=== PATIENT | female | born 1940 | race Caucasian/White ===

== ENCOUNTER 2016-11-05 12:22 | Inpatient (IN) ==
[2016-11-05 12:47] LABS: Basophils # 0.1 10*3/uL (0.0-0.2); Basophils % 0.5 % (0.0-0.8); Eosinophils # 0.1 10*3/uL (0.0-0.87); Eosinophils % 0.8 % (0.00-10.9); Hematocrit 28.2 VOL% (35.7-47.0); Hemoglobin 9.2 GM/DL (12.0-16.0); Immature Granulocytes % 0.8 %; Immature Granulocytes Absolute 0.09 #; Lymphocytes # 2.9 10*3/uL (1.4-4.0); Lymphocytes % 24.7 % (21.3-54.2); Mean Corpuscular HGB Conc 32.6 GM/DL (32-36); Mean Corpuscular Hemoglobin 28 PG (27-34); Mean Corpuscular Volume 84.9 FL (87-102); Mean Platelet Volume 11.8 FL (9.6-12.0); Monocytes # 0.9 10*3/uL (0.11-0.8); Monocytes % 7.2 % (1.7-12.7); Neutrophils # 7.8 10*3/uL (1.4-7.4); Platelet Count 257 T/CUMM (130-400); Red Blood Count 3.32 MC/CUMM (3.8-5.5); Red Cell Distribution Width 18.4 % (9.3-17.3); White Blood Count 11.8 T/CUMM (4-12)
[2016-11-05 13:14] LABS: Albumin 2.9 G/DL (3.4-5.0); Bilirubin,Total 0.4 MG/DL (0.2-1.0); Calcium 8.7 MG/DL (8.5-10.1); Osmolality,Calculated 299.1 MOS/KG (273-304); Potassium 4.7 MMOL/L (3.5-5.1); Total Protein 6.6 G/DL (6.4-8.3)
[2016-11-05] MEDS ORDERED: MORPHINE 2 MG/1 ML SYRINGE ONE ×2 (13:24→13:50)
[2016-11-05] MEDS ORDERED: ONDANSETRON 4 MG/2 ML VIAL ONE (13:24)
[2016-11-05] MEDS ORDERED: ONDANSETRON 4 MG/2 ML VIAL IV STA (13:28)
--- NOTE | 2016-11-05 13:29 | Emergency Department Note ---
Charlie Aguillon Brittany, am scribing for, and in the presence of, Murlai Francois MD 13:05. Alessandro Aguillon Phillip K, MD, personally performed the services described in this documentation, ascribed by Yumiko Guerra in my presence, and it is both accurate and complete 329 . Arrival - Arrival Chief Complaint: Fall Stated Complaint: fall ED Nursing Triage Note: C/o right hip pain s/p earlier today. Obvious shortening and rotation noted. +pedal pulse. Patient moved from daughter's car to ED stretcher. Mode of Arrival: Stretcher Limitations: No Limitations Source: Patient, RN Notes Reviewed - History of Present Illness HPI Narrative: Patient is a 76 y/o white female presenting to the ED with c/o R hip pain s/p taking a fall earlier today. Patient states that she was in the bathroom when she began staggering and lost her balance, resulting in a fall onto the floor. She denies hitting her head in the process of the fall. No syncope or LOC. Patient complains of R hip pain, no chest pain, shortness of breath, abdominal pain, N/V, neck pain, or back pain. Patient does have obvious shortening and external rotation of the RLE. Last ate around 3 hours ago at breakfast. She is a patient of Dr. Henderson of Cardiology and notes that she has an appointment set up for tomorrow. Family at the bedside reports that patient has a PMHx of CHF, Atrial Fibrillation, HTN, Scleroderma, and Rectal Prolapse. Patient has no further complaints. Onset (ago): minute(s) Consistency: constant Date of Last Menstrual Period: hysterectomy Allergies/Adverse Reactions: Allergies Allergy/AdvReac Type Severity Reaction Status Date / Time nifedipine [From Procardia] Allergy Unknown RASH Verified 09/11/16 06:54 Sulfa (Sulfonamide Allergy Unknown RASH Verified 09/11/16 06:54 Antibiotics) Home Medications: Home Medications Medication Instructions Recorded Confirmed Type Amitriptyline HCl 25 mg PO BEDTIME PRN 03/19/15 10/11/16 History Aspirin [Ecotrin] 81 mg PO DAILY 03/19/15 10/11/16 History Furosemide Tab [Lasix Tab] 80 mg PO DAILY 03/19/15 10/11/16 History Insulin Detemir [Levemir FlexPen] 25 unit SUBCUT BEDTIME 03/19/15 10/11/16 History Levothyroxine Tab [Synthroid Tab] 25 mcg PO DAILY@0700 03/19/15 10/11/16 History Montelukast Tab [Singulair Tab] 10 mg PO BEDTIME 03/19/15 10/11/16 History Multivitamin [One Daily] 1 each PO DAILY 03/19/15 10/11/16 History Potassium Chloride 20 meq PO BID 03/19/15 10/11/16 History predniSONE TAB [PredniSONE] 5 mg PO BID 03/19/15 10/11/16 History Allopurinol 150 mg PO DAILY 04/01/15 10/11/16 History Dexlansoprazole [Dexilant] 60 mg PO DAILY 04/01/15 10/11/16 History Duloxetine HCl [Cymbalta] 60 mg PO DAILY 04/01/15 10/11/16 History Lipase/Protease/Amylase [Creon 12,000 unit PO TID W/MEALS 04/01/15 10/11/16 History 12,000 Units] Diphenoxylate/Atrop 2.5-0.025 1 tablet PO Q6H PRN 04/04/16 10/11/16 History [Lomotil Tab] Atorvastatin [Lipitor] 40 mg PO BEDTIME 09/10/16 10/11/16 History Calcium (Carbonate) [Caltrate 600] 1 tablet PO DAILY 09/10/16 10/11/16 History HYDROcodone/ACETAMIN 5-325 [[place] 1 tablet PO Q6H PRN 09/10/16 10/11/16 History 5-325] Magnesium 250 mg PO DAILY 09/10/16 10/11/16 History Carvedilol [Coreg] 6.25 mg PO BID #60 tablet 09/11/16 10/11/16 Rx Ferrous Sulfate [Ferrous Sulfate 325 mg PO DAILY 09/11/16 10/11/16 History Cap] Isosorbide Mononitrate [Imdur] 30 mg PO DAILY #30 tablet 09/11/16 10/11/16 Rx Losartan [Cozaar] 25 mg PO DAILY #30 tablet 09/11/16 10/11/16 Rx hydrALAZINE TAB [Apresoline Tab] 25 mg PO BID #60 tablet 09/11/16 10/11/16 Rx Clindamycin Cap [Cleocin Cap] 300 mg PO BID 10/11/16 10/11/16 History Lutein 20 mg PO DAILY 10/11/16 10/11/16 History Review of System - Review of System 12 point system: reviewed and no additional remarkable complaints except as stated - Review of System Constitutional: Absent: chills, fever Eyes: Absent: vision change Head/Ears/Nose/Throat: Absent: nasal drainage, sore throat Respiratory: Absent: respiratory distress Cardiovascular: Absent: chest pain Gastrointestinal: Absent: abdominal pain, nausea, vomiting, diarrhea, constipation, melena, hematochezia Genitourinary female: Absent: dysuria, frequency, urgency Musculoskeletal: Present: leg pain (R hip pain). Absent: arm pain, back pain, neck pain Skin: Absent: rash Neurological: Absent: headache Psychiatric: Absent: anxiety, depression Hematological/Lymphatic: Absent: easy bleeding, easy bruising Medical,Surgical,& Family Hx - Medical History Cardio: History of: Cardiac Dysrhythmia, CHF, Hypertension, Cardiovascular Problems (DR HENDERSON. LAST VISIT 04/2015.) Psychological: History of: Anxiety Disorders Neurology: History of: TIA (2010) No history of: Seizures HEENT: History of: Eye Problem (macular degeneration), HEENT Problems (Cataracts ) Endocrine: History of: Diabetes Mellitus (IDDM), Diabetes Mellitus (NIDDM), Dyslipidemia, Thyroid Disorder (hypothyroidism) Rheumatology: History of;: Gout Respiratory: History of: COPD, Pneumonia, Respiratory Problems (DR CASTAÑEDA) Renal: History of: Renal Failure, Renal Problems (chronic renal insufficiency to stage II) Gastrointestinal: History of: GERD, Hemorrhoids, Pancreatitis, GI Problems ( PAST HX OF DIARRHEA, CONSTIPATION) Musculoskeletal: History of: Herniated Disk, Musculoskeletal Problems Hematology: History of: Anemia Other: History of: MRSA (LEFT ARMPIT), Miscellaneous Medical Problems ( rectocele repair) - Surgical History Cardiac Surgeries: Sugical HX of: Cardiac Catheterization Thoracic Surgeries: Patient denies;: Organ Transplant Abdominal Surgeries: Surgical HX of: Colonoscopy, EGD Reproductive Surgeries: Surgical HX of;: Breast Surgery (tumor removed from left breast), Hysterectomy - Family History Family History: Reports;: Family Diabetes, Family Heart Disease, Family Hypertension, Family Stroke (father) - Social History Smoking Status: Never smoker Frequency of Alcohol Use: None Type of Drug Use: None Exam Vital Signs: Vital Signs Temperature 99.1 F 11/05/16 12:27 Pulse Rate 105 H 11/05/16 12:27 Respiratory Rate 23 11/05/16 12:27 Blood Pressure 117/66 11/05/16 12:27 O2 Sat by Pulse Oximetry 95 11/05/16 12:27 - General General appearance: alert, in no apparent distress - Head Head exam: Present: atraumatic, normocephalic, normal inspection - Eye Eye exam: Present: normal appearance, PERRL, EOMI - ENT ENT exam: Present: normal exam, normal oropharynx - Neck Neck exam: Present: normal inspection, full ROM, trachea midline - Chest Chest inspection: Present: normal inspection, symmetric chest wall rise - Respiratory Respiratory exam: Present: normal lung sounds bilaterally. Absent: respiratory distress - Cardiovascular Cardiovascular exam: Present: normal rhythm, tachycardia, normal heart sounds. Absent: regular rate, murmur, rubs, gallop - Abdominal Exam Abdominal exam: Present: soft, normal bowel sounds. Absent: distention, tenderness - Extremities Exam Extremities exam: Present: tenderness (TTP over R hip). Absent: normal inspection (shortening and external rotation of the RLE), full ROM (limited ROM to RLE secondary to pain) - Back Exam Back exam: Present: normal inspection - Neurological Exam Neurological exam: Present: alert, oriented X3, CN II-XII intact. Absent: motor sensory deficit - Psychiatric Psychiatric exam: Present: normal affect, normal mood - Skin Skin exam: Present: warm, dry Course Course Narrative: Patient discussed with the hospitalist and Dr. Lance Rodrigez's nurse. Results - Labs CBC & BMP: 11/05/16 12:35 11/05/16 12:35 Lab Results: I have reviewed the patients labs Labs: Laboratory Tests 11/05/16 12:35 WBC 11.8 RBC 3.32 L Hgb 9.2 L Hct 28.2 L MCV 84.9 L RDW 18.4 H Plt Count 257 Neut # (Auto) 7.8 H [place] # (Auto) 0.9 H Disposition Clinical Impression: Subcapital fracture of neck of right femur, Dehydration, Anemia, Fall, History of scleroderma, Chronic renal failure Case discussed with: patient, patient's family Disposition: Still a Patient Condition: Guarded Additional Instructions: Admit to the hospitalist and consult Dr. Lance Rodrigez
[2016-11-05] MEDS ORDERED: MORPHINE 2 MG/1 ML SYRINGE IV STA ×2 (13:30→13:52)
[2016-11-05] MEDS ORDERED: SODIUM CHLORIDE 0.9% 500 ML IV STA (13:30)
--- NOTE | 2016-11-05 13:30 | XRay Report ---
History: Fall Date: 11/05/2016 Study: Right hip 2 views to include AP pelvis Comparison exam: CT abdomen and pelvis October 11, 2016 There is an acute subcapital fracture of the right hip with mild superior-lateral displacement of the distal fracture fragment and mild varus deformity at the fracture site. There is mild osteophyte formation and joint space narrowing of the right hip. There is suspected osteopenia. Impression: Acute right hip fracture as discussed above PROCEDURE INTERPRETED AT [facility] DEPARTMENT OF RADIOLOGY Final Report Signed by: Dr. Maggi Bradshaw
[2016-11-05 14:32] LABS: Apearance,Urine Slightly Hazy (Clear); Bilirubin,Urine Negative (Negative); Blood, Urine Negative (Negative); Glucose,Urine (UA) 150 mg/dL (Negative); Ketones,Urine Negative (Negative); Nitrite,Urine Negative (Negative); Protein,Urine Negative; RBC,Urine 12 /HPF (0-4); Squamous Epithelial Cell,Urine Occasional /HPF (0-10); Urine Color Yellow (Yellow); Urine Specific Gravity 1.013 (1.001-1.035); Urine Urobilinogen < 2.0 EU/DL (0.2-1.0); WBC,Urine 2 /HPF (0-6)
--- NOTE | 2016-11-05 14:42 | XRay Report ---
Portable chest Exam date: 11/05/2016 12:48 PM Indication: Shortness of breath, cough Comparison: April 05, 2016 Findings: Cardiomediastinal contours are stable with underlying cardiomegaly. Chronic interstitial changes. No superimposed consolidative or congestive process. No acute osseous abnormalities. Visualized upper abdomen demonstrates no acute pathology. Impression: No acute cardiopulmonary findings PROCEDURE INTERPRETED AT [facility] DEPARTMENT OF RADIOLOGY Final Report Signed by: Priscila Tompkins MD
[2016-11-05] MEDS ORDERED: HYDROmorphone 2 MG/1 ML VIAL IV STA (15:32)
[2016-11-05] MEDS ORDERED: HYDROmorphone 2 MG/1 ML VIAL ONE (15:34)
--- NOTE | 2016-11-05 15:41 | Hospitalist History & Physical ---
Assessment and Plan - Time spent with patient Time spent with patient: Greater than 30 minutes (1) Subcapital fracture of right femur Status: Acute Assessment and plan: Acute subcapital fracture of right femur primary x-ray of the right hip. Case has been discussed with Dr. Lance Rodrigez per ER physician. Vitals are currently stable. Patient does not appear to be in cardiac decompensation. We will continue IV pain management with Dilaudid as well as gentle IV fluid hydration. Consult Dr. Lance Rodrigez Current Visit: Yes (2) Chronic renal failure Status: Acute Assessment and plan: Creatinine 2.10. Gentle IV hydration. IV NS 50 ml/hr Current Visit: Yes (3) Fall Status: Acute Current Visit: Yes (4) Diabetes mellitus type II, controlled Status: Chronic Assessment and plan: Serum glucose 327. Accu-cheks ACHS. SS insulin per protocol. Current Visit: No Qualifiers: Diabetes mellitus complication status: without complication History of Present Illness Chief complaint: Fall, R hip fracture History of present illness: Ms. Jones is a 76 year old white female with past medical history significant for hypertension, IDDM, CHF, TIAs, rectal prolapse who presents to the ED today with complaints of right hip pain after sustaining a fall this morning. Patient reports that after dressing in the restroom she staggered and fell back on her posterior right hip. She denies having hit her head or losing consciousness. Patient states that when she fell, she simply could not get up and required assistance from her [id number]. EMS was called and the patient was brought to the hospital emergency room for further evaluation. On admission, the patient was found to have an acute subcapital fracture and superiolaterally displaced distal fracture fragment of the right hip. There is also some mild varus deformity at the fracture site. Patient denies headache, blurry vision, chest pain, abdominal pain. Pulses are palpable in all 4 extremities. Patient does voice right hip pain which she ranks 10 out of 10. Lab work is significant for WBC 11.8, hemoglobin 9.2, hematocrit 28.2, sodium 135, BUN 60, creatinine 2.10, serum glucose 327. Urinalysis is negative for infection. This case is been discussed with both Dr. Francois, ER physician, and Dr. Jones, admitting physician, and the patient will be admitted for further evaluation and treatment. ER physician has discussed fracture repair with Dr. Lucas and he will be consulted on this case. Patient is a full code and makes her own medical decisions. Home medications will be reviewed and reconciled once confirmed. Of note, the patient did have a left heart catheterization for surgical clearance per Dr. Henderson 1 month ago. She does pose moderate surgical risk given her heart history and runs a risk of decompensating post surgery. Vital signs are currently stable. Will admit her and initiate IV hydration and pain management. Home Medications Medication Instructions Recorded Confirmed Type Amitriptyline HCl 25 mg PO BEDTIME PRN 03/19/15 11/05/16 History Aspirin [Ecotrin] 81 mg PO DAILY 03/19/15 11/05/16 History Furosemide Tab [Lasix Tab] 80 mg PO DAILY 03/19/15 11/05/16 History Insulin Detemir [Levemir FlexPen] 25 unit SUBCUT BEDTIME 03/19/15 11/05/16 History Levothyroxine Tab [Synthroid Tab] 25 mcg PO DAILY@0700 03/19/15 11/05/16 History Montelukast Tab [Singulair Tab] 10 mg PO BEDTIME 03/19/15 11/05/16 History Multivitamin [One Daily] 1 each PO DAILY 03/19/15 11/05/16 History Potassium Chloride 20 meq PO BID 03/19/15 11/05/16 History predniSONE TAB [PredniSONE] 5 mg PO BID 03/19/15 11/05/16 History Allopurinol 150 mg PO DAILY 04/01/15 11/05/16 History Dexlansoprazole [Dexilant] 60 mg PO DAILY 04/01/15 11/05/16 History Duloxetine HCl [Cymbalta] 60 mg PO DAILY 04/01/15 11/05/16 History Lipase/Protease/Amylase [Creon 12,000 unit PO TID W/MEALS 04/01/15 11/05/16 History 12,000 Units] Diphenoxylate/Atrop 2.5-0.025 1 tablet PO Q6H PRN 04/04/16 11/05/16 History [Lomotil Tab] Atorvastatin [Lipitor] 40 mg PO BEDTIME 09/10/16 11/05/16 History Calcium (Carbonate) [Caltrate 600] 1 tablet PO DAILY 09/10/16 11/05/16 History Magnesium 250 mg PO DAILY 09/10/16 11/05/16 History Carvedilol [Coreg] 6.25 mg PO BID #60 tablet 09/11/16 11/05/16 Rx Ferrous Sulfate [Ferrous Sulfate 325 mg PO DAILY 09/11/16 11/05/16 History Cap] Isosorbide Mononitrate [Imdur] 30 mg PO DAILY #30 tablet 09/11/16 11/05/16 Rx Losartan [Cozaar] 25 mg PO DAILY #30 tablet 09/11/16 11/05/16 Rx hydrALAZINE TAB [Apresoline Tab] 25 mg PO BID #60 tablet 09/11/16 11/05/16 Rx Lutein 20 mg PO DAILY 10/11/16 11/05/16 History Polyethylene Glycol Powder 17 gm PO DAILY 11/05/16 11/05/16 History [Miralax] Allergies Allergy/AdvReac Type Severity Reaction Status Date / Time nifedipine [From Procardia] Allergy Unknown RASH Verified 09/11/16 06:54 Sulfa (Sulfonamide Allergy Unknown RASH Verified 09/11/16 06:54 Antibiotics) Medical,Surgical,& Family Hx - Medical History Cardio: History of: Cardiac Dysrhythmia, CHF, Hypertension, Cardiovascular Problems (DR HENDERSON. LAST VISIT 04/2015.) Psychological: History of: Anxiety Disorders Neurology: History of: TIA (2010) No history of: Seizures HEENT: History of: Eye Problem (macular degeneration), HEENT Problems (Cataracts ) Endocrine: History of: Diabetes Mellitus (IDDM), Diabetes Mellitus (NIDDM), Dyslipidemia, Thyroid Disorder (hypothyroidism) Rheumatology: History of;: Gout Respiratory: History of: COPD, Pneumonia, Respiratory Problems (DR CASTAÑEDA) Renal: History of: Renal Failure, Renal Problems (chronic renal insufficiency to stage II) Gastrointestinal: History of: GERD, Hemorrhoids, Pancreatitis, GI Problems ( PAST HX OF DIARRHEA, CONSTIPATION) Musculoskeletal: History of: Herniated Disk, Musculoskeletal Problems Hematology: History of: Anemia Other: History of: MRSA (LEFT ARMPIT), Miscellaneous Medical Problems ( rectocele repair) - Surgical History Cardiac Surgeries: Sugical HX of: Cardiac Catheterization Thoracic Surgeries: Patient denies;: Organ Transplant Abdominal Surgeries: Surgical HX of: Colonoscopy, EGD Reproductive Surgeries: Surgical HX of;: Breast Surgery (tumor removed from left breast), Hysterectomy - Family History Family History: Reports;: Family Diabetes, Family Heart Disease, Family Hypertension, Family Stroke (father) - Social History Smoking Status: Never smoker Frequency of Alcohol Use: None Type of Drug Use: None Marital Status: Lives With:: Spouse Functional capacity: uses cane/walker 12 point system: reviewed and no additional remarkable complaints except as stated Exam - Constitutional Vitals: Period Temp Pulse Resp BP Sys/Barry Pulse Ox Last 24 Hr 99.1 F-99.1 F 105-105 23-23 117-117/66-66 95 Exam: General appearance: normal weight, moderate distress - Head Head exam: Present: normocephalic, atraumatic - Eye Eye exam: Present: EOMI. Absent: conjunctival injection, nystagmus Pupils: Present: JUN, normal accommodation - ENT ENT exam: Present: normal exam, normal external ear exam - Neck Neck exam: Present: normal inspection. Absent: lymphadenopathy, tenderness, thyromegaly - Respiratory Respiratory exam: Present: clear to auscultation bilaterally. Absent: rales, rhonchi, wheezes - Cardiovascular Cardiovascular exam: Present: Irregularly irregular rhythm. Absent: carotid bruit, gallop, rubs - GI/Abdominal GI/Abdominal exam: Present: normal bowel sounds. Absent: ascites, distended, mass - Extremities Exam Extremities exam: Present: Noticeably shortened RLE, external rotation - Back Exam Back exam: Absent: CVA tenderness (L), CVA tenderness (R) - Neurological Exam Neurological exam: Present: alert, oriented X3, CN II-XII intact, reflexes normal - Psychiatric Psychiatric exam: Present: normal affect, normal mood - Skin Skin exam: Present: normal color, warm, dry Results - Labs CBC & BMP: 11/05/16 12:35 11/05/16 12:35 Lab Results: I have reviewed the past 24 hour labs - Diagnostic Findings Procedure: Chest x-ray: image reviewed by me, report reviewed by me, X-ray: image reviewed by me, report reviewed by me (Right hip: Subcapital fracture)
[2016-11-05] MEDS ORDERED: GLUCAGON 1 MG VIAL IM PRN (15:51)
[2016-11-05] MEDS ORDERED: ONDANSETRON 4 MG/2 ML VIAL IV PRN (15:51)
[2016-11-05] MEDS ORDERED: DEXTROSE 50% 25 GM/50 ML SYRINGE IV PRN (15:51)
[2016-11-05] MEDS: PANTOPRAZOLE 40 MG TABLET PO SCH (16:36)
[2016-11-05] MEDS: SODIUM CHLORIDE 0.9% 1,000 ML IV SCH (16:37)
[2016-11-05] MEDS: INSULIN LISPRO 100 UNIT/ML SUBCUT SCH ×2 (16:47→21:30)
--- NOTE | 2016-11-05 18:13 | Orthopedic Consult Note ---
History of Present Illness Chief complaint: Femoral neck fracture right hip History of present illness: Ms. Jones is a 76 year old female See dictated report Home Medications Medication Instructions Recorded Confirmed Type Amitriptyline HCl 25 mg PO BEDTIME PRN 03/19/15 11/05/16 History Aspirin [Ecotrin] 81 mg PO DAILY 03/19/15 11/05/16 History Furosemide Tab [Lasix Tab] 80 mg PO DAILY 03/19/15 11/05/16 History Insulin Detemir [Levemir FlexPen] 25 unit SUBCUT BEDTIME 03/19/15 11/05/16 History Levothyroxine Tab [Synthroid Tab] 25 mcg PO DAILY@0700 03/19/15 11/05/16 History Montelukast Tab [Singulair Tab] 10 mg PO BEDTIME 03/19/15 11/05/16 History Multivitamin [One Daily] 1 each PO DAILY 03/19/15 11/05/16 History Potassium Chloride 20 meq PO BID 03/19/15 11/05/16 History predniSONE TAB [PredniSONE] 5 mg PO BID 03/19/15 11/05/16 History Allopurinol 150 mg PO DAILY 04/01/15 11/05/16 History Dexlansoprazole [Dexilant] 60 mg PO DAILY 04/01/15 11/05/16 History Duloxetine HCl [Cymbalta] 60 mg PO DAILY 04/01/15 11/05/16 History Lipase/Protease/Amylase [Creon 12,000 unit PO TID W/MEALS 04/01/15 11/05/16 History 12,000 Units] Diphenoxylate/Atrop 2.5-0.025 1 tablet PO Q6H PRN 04/04/16 11/05/16 History [Lomotil Tab] Atorvastatin [Lipitor] 40 mg PO BEDTIME 09/10/16 11/05/16 History Calcium (Carbonate) [Caltrate 600] 1 tablet PO DAILY 09/10/16 11/05/16 History Magnesium 250 mg PO DAILY 09/10/16 11/05/16 History Carvedilol [Coreg] 6.25 mg PO BID #60 tablet 09/11/16 11/05/16 Rx Ferrous Sulfate [Ferrous Sulfate 325 mg PO DAILY 09/11/16 11/05/16 History Cap] Isosorbide Mononitrate [Imdur] 30 mg PO DAILY #30 tablet 09/11/16 11/05/16 Rx Losartan [Cozaar] 25 mg PO DAILY #30 tablet 09/11/16 11/05/16 Rx hydrALAZINE TAB [Apresoline Tab] 25 mg PO BID #60 tablet 09/11/16 11/05/16 Rx Lutein 20 mg PO DAILY 10/11/16 11/05/16 History Polyethylene Glycol Powder 17 gm PO DAILY 11/05/16 11/05/16 History [Miralax] Allergies Allergy/AdvReac Type Severity Reaction Status Date / Time nifedipine [From Procardia] Allergy Unknown RASH Verified 09/11/16 06:54 Sulfa (Sulfonamide Allergy Unknown RASH Verified 09/11/16 06:54 Antibiotics) Medical,Surgical,& Family Hx - Medical History Cardio: History of: Cardiac Dysrhythmia, CHF, Hypertension, Cardiovascular Problems (DR HENEDRSON. LAST VISIT 04/2015.) Psychological: History of: Anxiety Disorders Neurology: History of: TIA (2010) No history of: Seizures HEENT: History of: Eye Problem (macular degeneration), HEENT Problems (Cataracts ) Endocrine: History of: Diabetes Mellitus (IDDM), Diabetes Mellitus (NIDDM), Dyslipidemia, Thyroid Disorder (hypothyroidism) Rheumatology: History of;: Gout Respiratory: History of: COPD, Pneumonia, Respiratory Problems (DR CASTAÑEDA) Renal: History of: Renal Failure, Renal Problems (chronic renal insufficiency to stage II) Gastrointestinal: History of: GERD, Hemorrhoids, Pancreatitis, GI Problems ( PAST HX OF DIARRHEA, CONSTIPATION) Musculoskeletal: History of: Herniated Disk, Musculoskeletal Problems (right hip fracture) Hematology: History of: Anemia Other: History of: MRSA (LEFT ARMPIT), Miscellaneous Medical Problems ( rectocele repair) - Surgical History Cardiac Surgeries: Sugical HX of: Cardiac Catheterization Thoracic Surgeries: Patient denies;: Organ Transplant Abdominal Surgeries: Surgical HX of: Colonoscopy, EGD Reproductive Surgeries: Surgical HX of;: Breast Surgery (tumor removed from left breast), Hysterectomy - Family History Family History: Reports;: Family Diabetes, Family Heart Disease, Family Hypertension, Family Stroke (father) - Social History Smoking Status: Never smoker Frequency of Alcohol Use: None Type of Drug Use: None Exam - Constitutional Vitals: Period Temp Pulse Resp BP Sys/Barry Pulse Ox Last 24 Hr 98.7 F-99.1 F 96-105 14-23 117-154/53-66 95-100 Results - Labs CBC & BMP: 11/05/16 12:35 11/05/16 12:35
[2016-11-05] MEDS: HYDROmorphone 2 MG/1 ML VIAL IV PRN ×3 (18:53→23:14)
[2016-11-05] MEDS: CARVEDILOL 6.25 MG TABLET PO SCH (21:30)
[2016-11-05] MEDS: hydrALAZINE 25 MG TABLET PO SCH (21:30)
[2016-11-05] MEDS: predniSONE 5 MG TABLET PO SCH (21:30)
[2016-11-05] MEDS: AMITRIPTYLINE 25 MG TABLET PO PRN (23:14)
[2016-11-06 05:26] LABS: Basophils # 0.1 10*3/uL (0.0-0.2); Basophils % 0.6 % (0.0-0.8); Eosinophils % 0.4 % (0.00-10.9); Hematocrit 27.3 VOL% (35.7-47.0); Hemoglobin 8.5 GM/DL (12.0-16.0); Immature Granulocytes % 0.9 %; Immature Granulocytes Absolute 0.08 #; Lymphocytes # 2.5 10*3/uL (1.4-4.0); Lymphocytes % 26.6 % (21.3-54.2); Mean Corpuscular HGB Conc 31.1 GM/DL (32-36); Mean Corpuscular Hemoglobin 27 PG (27-34); Mean Corpuscular Volume 86.9 FL (87-102); Mean Platelet Volume 11.9 FL (9.6-12.0); Monocytes # 0.5 10*3/uL (0.11-0.8); Monocytes % 5.7 % (1.7-12.7); Neutrophils # 6.1 10*3/uL (1.4-7.4); Neutrophils % 65.8 % (38.7-73.9); Platelet Count 238 T/CUMM (130-400); Red Blood Count 3.14 MC/CUMM (3.8-5.5); Red Cell Distribution Width 18.4 % (9.3-17.3); White Blood Count 9.3 T/CUMM (4-12)
[2016-11-06 05:51] LABS: Calcium 8.7 MG/DL (8.5-10.1); Osmolality,Calculated 291.7 MOS/KG (273-304)
[2016-11-06] MEDS: LEVOTHYROXINE 25 MCG TABLET PO SCH (06:41)
[2016-11-06] MEDS: INSULIN LISPRO 100 UNIT/ML SUBCUT SCH ×2 (07:45→12:21)
[2016-11-06] MEDS ORDERED: MAGNESIUM HYDROXIDE SUSP 30 ML UDCUP PO PRN (07:51)
[2016-11-06] MEDS ORDERED: LACTULOSE 20 GM/30 ML UDCUP PO PRN (07:51)
[2016-11-06] MEDS ORDERED: diphenhydrAMINE CAP 25 MG CAPSULE PO PRN (07:51)
[2016-11-06] MEDS ORDERED: BISACODYL 10 MG SUPP RECTAL PRN (07:51)
[2016-11-06] MEDS ORDERED: TEMAZEPAM 7.5 MG CAPSULE PO PRN (07:51)
[2016-11-06] MEDS ORDERED: PROMETHAZINE 25 MG/1 ML VIAL IM PRN (07:51)
[2016-11-06] MEDS ORDERED: DIPHENOXYLATE/ATROPINE 2.5-0.025 MG TABLET PO PRN (07:54)
[2016-11-06] MEDS ORDERED: GLUCAGON 1 MG VIAL IM PRN ×2 (07:55→15:38)
[2016-11-06] MEDS ORDERED: DEXTROSE 50% 25 GM/50 ML SYRINGE IV PRN ×2 (07:55→15:38)
--- NOTE | 2016-11-06 07:59 | Consultation ---
DATE OF CONSULT: 11/05/2016 HISTORY: A 76-year-old white female fell over today sustaining injury to her right hip. She reporte vik is an ambulatory and usually not requiring the need for a walker or cane. Upon falling, she was unable to bear weight, brought to [facility], where diagnosed with a displaced femoral n delvin fracture. She has numerous medical problems including a recent abdominal surgery and has been ad mitted to the hospitalist service for medical evaluation and clearance. I have been asked to evaluat e regarding her right hip fracture. PHYSICAL EXAMINATION GENERAL: A thin white female. She has no complaints of pain other than her right hip. EXTREMITIES: There is no pain or crepitation with palpitation range of motion of either upper extrem ity or about the left lower. On the right side, there is decreased range of motion about the right h ip secondary to pain. No obvious pain or crepitation of the distal femur, knee, tib-fib or ankle. S he will actively flex and extend the foot and ankle. Describing the sensibility is intact. Radiographs confirming a displaced femoral neck fracture of right hip. IMPRESSION: Femoral neck fracture, right hip. PLAN: I have discussed with she and her family present her diagnosis and treatment recommendations in cluding the need for endoprosthesis. I have discussed with her the nature of the procedure, such as risks, benefits, and alternatives. All questions were answered. We will plan on endoprosthesis in t he a.m.
[2016-11-06] MEDS: hydrALAZINE 25 MG TABLET PO SCH (08:57)
[2016-11-06] MEDS: DULoxetine 30 MG CAPSULE PO SCH (08:57)
[2016-11-06] MEDS: CARVEDILOL 6.25 MG TABLET PO SCH (08:57)
[2016-11-06] MEDS: DOCUSATE SODIUM 100 MG CAPSULE PO SCH ×2 (08:57→20:47)
[2016-11-06] MEDS: MULTIVITAMIN (CENTRUM) TABLET PO SCH (08:57)
[2016-11-06] MEDS: ASPIRIN EC 81 MG TABLET PO SCH (08:57)
[2016-11-06] MEDS: CALCIUM (CARBONATE) 600 MG TABLET PO SCH (08:57)
[2016-11-06] MEDS: predniSONE 5 MG TABLET PO SCH ×2 (08:58→20:47)
[2016-11-06] MEDS: MAGNESIUM GLUCONATE 500 MG TABLET PO SCH (08:58)
[2016-11-06] MEDS: FERROUS SULFATE 325 MG TABLET PO SCH (08:58)
[2016-11-06] MEDS: PANTOPRAZOLE 40 MG TABLET PO SCH (08:58)
[2016-11-06] MEDS: POLYETHYLENE GLYCOL POWDER 17 GM PACK PO SCH (08:58)
[2016-11-06] MEDS: ALLOPURINOL 300 MG TABLET PO SCH (08:59)
[2016-11-06] MEDS ORDERED: LOSARTAN 25 MG TABLET PO SCH (09:00)
[2016-11-06] MEDS ORDERED: NON-FORMULARY MEDICATION (Dexlansoprazole [Dexilant] 60 MG) PO SCH (09:00)
[2016-11-06] MEDS ORDERED: POTASSIUM CHLORIDE 20 MEQ TABLET PO SCH (09:00)
[2016-11-06] MEDS ORDERED: FUROSEMIDE 80 MG TABLET PO SCH (09:00)
[2016-11-06] MEDS ORDERED: ISOSORBIDE MONONITRATE 30 MG TABLET PO SCH (09:00)
[2016-11-06] MEDS: Lutein [Lutein] 20 MG PO SCH (09:30)
[2016-11-06] MEDS: AMYLASE PO SCH ×3 (09:30→17:57)
[2016-11-06] MEDS: LIPASE PO SCH ×3 (09:30→17:57)
[2016-11-06] MEDS: PROTEASE PO SCH ×3 (09:30→17:57)
--- NOTE | 2016-11-06 09:35 | Anesthesia Post-Op ---
Anesthesia Post OP - Post Ansesthetic Evaluation Patient seen in post op: Yes Resp: within normal limits CV: within normal limits Mental: within normal limits Temp: within normal limits [id number]: within normal limits Nausea and Vomiting: within normal limits Pain: within normal limits
--- NOTE | 2016-11-06 09:35 | XRay Report ---
Exam: XR hip 1V RT Date: 11/06/2016 7:53 AM Comparison: 11/05/2016 Indication: Hip replacement Technique:[AP right hip] Findings: Interval satisfactory right total hip replacement with post operative findings. Arterial calcifications are noted. Impression: Satisfactory interval right total hip replacement. PROCEDURE INTERPRETED AT [facility] DEPARTMENT OF RADIOLOGY Final Report Signed by: Dr. Leti Lopes
[2016-11-06] MEDS ORDERED: PROPOFOL 200 MG/20 ML VIAL IV ONE (09:40)
[2016-11-06] MEDS ORDERED: KETOROLAC 30 MG/1 ML VIAL ONE (09:41)
[2016-11-06] MEDS ORDERED: fentaNYL 100 MCG/2 ML VIAL ONE (09:41)
[2016-11-06] MEDS ORDERED: ONDANSETRON 4 MG/2 ML VIAL ONE (09:41)
[2016-11-06] MEDS ORDERED: MIDAZOLAM 2 MG/2 ML VIAL ONE (09:41)
[2016-11-06] MEDS ORDERED: KETAMINE 500 MG/10 ML VIAL ONE (09:41)
[2016-11-06] MEDS ORDERED: ACETAMINOPHEN 1,000 MG/100 ML VIAL IV ONE (09:42)
[2016-11-06] MEDS ORDERED: HYDROmorphone 2 MG/1 ML VIAL IV PRN (09:48)
--- NOTE | 2016-11-06 12:08 | XRay Report ---
Exam: XR hip 1V RT Date: 11/06/2016 12:00 AM Comparison: 11/06/2016 Indication: Hip replacement Technique:[Portable AP pelvis] Findings: Recent satisfactory right total hip replacement with postoperative findings. Vascular calcifications are noted. Impression: Recent satisfactory right total hip replacement. PROCEDURE INTERPRETED AT [facility] DEPARTMENT OF RADIOLOGY Final Report Signed by: Dr. Leti Lopes
[2016-11-06] MEDS: INSULIN REGULAR 100 UNIT/ML SUBCUT SCH ×3 (12:25→20:47)
--- NOTE | 2016-11-06 14:14 | Hospitalist Progress Note ---
Assessment and Plan (1) Subcapital fracture of right femur Status: Acute Assessment and plan: s/p right bipolar orif Current Visit: Yes (2) Chronic diastolic heart failure Status: Acute Assessment and plan: hold lasix and hydration, chronic diastolic heart failure Current Visit: Yes (3) Acute on chronic renal failure Status: Acute Assessment and plan: Improve with gentle hydration creatinine has come down from 2.1-1.4. Current Visit: Yes (4) Dehydration Status: Acute Assessment and plan: Resolved with hydration. With have lock IV fluids. Will hold Lasix. Current Visit: Yes (5) Anemia Status: Acute Assessment and plan: Patient is chronically anemic but her hemoglobin is gone from 9.2-8.5. We will continue to monitor after surgery will most likely need blood. We will write a as needed blood transfusion order. Continuing protonix Current Visit: Yes (6) Fall Status: Acute Assessment and plan: may be orthostatic. Current Visit: Yes (7) Hypertension Status: Chronic Assessment and plan: cont coreg, hold losartan, isosorbide and hydralazine Current Visit: No Qualifiers: Hypertension type: essential hypertension Qualified Code(s): I10 - Essential (primary) hypertension (8) IDDM (insulin dependent diabetes mellitus) Status: Acute Assessment and plan: Insulin sliding scale, cont lantus Current Visit: Yes Hospitalist: Subjective Interval history: Patient had a bipolar right hip surgery today by Dr. Lance Haines. Patient request either [facility] bed or [facility] in [place]. Patient tolerated the clear liquids well. We will advance her diet. Blood sugars are elevated. Blood pressure is good. Her medicines are reviewed and reconciled. Patient's hemoglobin A1c is 9.5. Patient had an echocardiogram that was completed in March 2016 which showed an EF of 55% and grade 2 diastolic dysfunction. Her PAP is 50 Exam - Constitutional Vitals: Period Temp Pulse Resp BP Sys/Barry Pulse Ox Last 24 Hr 98.0 F-99.4 F 79-111 12-22 105-161/50-87 97-100 Exam: Heart Rate-[RRR] Lungs-[CTAB] GI-[diminished bs distended but nontender, healing surgical scar Ext-postsurgical wedge Neuro cannot evaluate motor due to recent surgery, [alert and oriented times 2] psych [normal mood and affect] General [no acute distress] Results - Labs CBC & BMP: 11/06/16 04:39 11/06/16 04:39 Lab Results: I have reviewed the past 24 hour labs
--- NOTE | 2016-11-06 14:23 | Operative Note ---
DATE: 11/06/2016 PREOPERATIVE DIAGNOSIS: FEMORAL NECK FRACTURE, RIGHT HIP. POSTOPERATIVE DIAGNOSIS: SAME. OPERATIVE PROCEDURE: BIPOLAR, RIGHT HIP. SURGEON: Lux Lucas Jr., MD ANESTHESIA: Spinal. INDICATIONS: A 76-year-old white female, fell yesterday sustaining a displaced femoral neck fracture of the right hip. I discussed with her and her family preoperatively, the diagnosis and treatment r ecommendations including the need for endoprosthesis. OPERATIVE PROCEDURE: The patient was taken to the operating room and under spinal anesthetic, positi oned in the left lateral decubitus position. The right hip and lower extremity were prepped and drap ed in a usual sterile manner. She received Ancef preoperatively. A curvilinear incision was made ov er the posterolateral aspect of the right hip. Sharp dissection was carried down through skin and farah bcutaneous tissue. The IT band was split and gluteus in line with its fibers. The hip was internall y rotated, and the short rotators and capsule were reflected off the back of the proximal femur and t he capsule was tagged for later repair. The femoral neck cut was fashioned with a saw and the head r emoved and sized to a 45. The canal was very small. She accepted size 3 medium to main stem, trial reduction selecting 1.5 head. The femur was prepared for cementation. Again, the canal was too smal l to accept the small cement plug. The cement was inserted and the size 3 femoral stem appeared. A small fracture was noted at the medial calcar, substratum was initially with minimally only about a m illimeter. The femur was held in position as it hardened,1.5 and bipolar head was then secured on th e trunnion and the hip relocated. Intraoperative films confirm a satisfactory position of the prosth esis and reduction. The wound was then irrigated and closed in a standard fashion, using # 1 Vicryl for the posterior capsule IT band layers, 2-0 Vicryl for the subcutaneous layer, and sujit for skin . Sterile dressing was applied. She was rolled supine and abduction pillow placed and taken to the recovery room in stable condition. ESTIMATED BLOOD LOSS: 50 cc. COUNTS: Correct. DRAINS: Times 2.
[2016-11-06] MEDS ORDERED: SODIUM CHLORIDE 0.9% 250 ML IV PRN (14:24)
[2016-11-06] MEDS: ACETAMINOPHEN 325 MG TABLET PO PRN (14:56)
[2016-11-06] MEDS: MONTELUKAST 10 MG TABLET PO SCH (20:47)
[2016-11-06] MEDS: AMITRIPTYLINE 25 MG TABLET PO PRN (20:47)
[2016-11-06] MEDS: CARVEDILOL 3.125 MG TABLET PO SCH (20:47)
[2016-11-06] MEDS: ATORVASTATIN 40 MG TABLET PO SCH (20:47)
[2016-11-06] MEDS: FONDAPARINUX 2.5 MG/0.5 ML SYRINGE SUBCUT SCH (20:47)
[2016-11-06] MEDS ORDERED: INSULIN GLARGINE 100 UNIT/ML SUBCUT SCH (21:00)
[2016-11-07] MEDS: SODIUM CHLORIDE 0.9% 1,000 ML IV SCH (07:31)
[2016-11-07 07:39] LABS: Basophils # 0.1 10*3/uL (0.0-0.2); Basophils % 0.4 % (0.0-0.8); Eosinophils # 0.1 10*3/uL (0.0-0.87); Eosinophils % 0.5 % (0.00-10.9); Hematocrit 26.4 VOL% (35.7-47.0); Hemoglobin 8.3 GM/DL (12.0-16.0); Immature Granulocytes % 0.8 %; Immature Granulocytes Absolute 0.09 #; Lymphocytes # 3.3 10*3/uL (1.4-4.0); Lymphocytes % 29.1 % (21.3-54.2); Mean Corpuscular HGB Conc 31.4 GM/DL (32-36); Mean Corpuscular Hemoglobin 27 PG (27-34); Mean Corpuscular Volume 84.9 FL (87-102); Mean Platelet Volume 11.2 FL (9.6-12.0); Monocytes # 0.8 10*3/uL (0.11-0.8); Monocytes % 6.6 % (1.7-12.7); Neutrophils # 7.1 10*3/uL (1.4-7.4); Neutrophils % 62.6 % (38.7-73.9); Platelet Count 226 T/CUMM (130-400); Red Blood Count 3.11 MC/CUMM (3.8-5.5); Red Cell Distribution Width 18.1 % (9.3-17.3); White Blood Count 11.4 T/CUMM (4-12)
[2016-11-07 08:07] LABS: Calcium 8.6 MG/DL (8.5-10.1); Osmolality,Calculated 282.1 MOS/KG (273-304); Potassium 4.6 MMOL/L (3.5-5.1)
[2016-11-07] MEDS: LIPASE PO SCH ×3 (08:14→16:08)
[2016-11-07] MEDS: ACETAMINOPHEN 325 MG TABLET PO PRN (08:14)
[2016-11-07] MEDS: INSULIN REGULAR 100 UNIT/ML SUBCUT SCH ×4 (08:14→21:23)
[2016-11-07] MEDS: FERROUS SULFATE 325 MG TABLET PO SCH (08:14)
[2016-11-07] MEDS: AMYLASE PO SCH ×3 (08:14→16:08)
[2016-11-07] MEDS: DOCUSATE SODIUM 100 MG CAPSULE PO SCH ×2 (08:14→21:22)
[2016-11-07] MEDS: PROTEASE PO SCH ×3 (08:14→16:08)
[2016-11-07] MEDS: PANTOPRAZOLE 40 MG TABLET PO SCH (08:14)
[2016-11-07] MEDS: CARVEDILOL 3.125 MG TABLET PO SCH (08:15)
[2016-11-07] MEDS: LEVOTHYROXINE 25 MCG TABLET PO SCH (08:15)
[2016-11-07] MEDS: POLYETHYLENE GLYCOL POWDER 17 GM PACK PO SCH (08:15)
[2016-11-07] MEDS: ALLOPURINOL 300 MG TABLET PO SCH (08:15)
[2016-11-07] MEDS: ASPIRIN EC 81 MG TABLET PO SCH (08:15)
[2016-11-07] MEDS: DULoxetine 30 MG CAPSULE PO SCH (08:15)
[2016-11-07] MEDS: MULTIVITAMIN (CENTRUM) TABLET PO SCH (08:15)
[2016-11-07] MEDS: MAGNESIUM GLUCONATE 500 MG TABLET PO SCH (08:15)
[2016-11-07] MEDS: Lutein [Lutein] 20 MG PO SCH (08:16)
[2016-11-07] MEDS: CALCIUM (CARBONATE) 600 MG TABLET PO SCH (08:16)
[2016-11-07] MEDS: predniSONE 5 MG TABLET PO SCH ×2 (08:16→21:22)
--- NOTE | 2016-11-07 08:34 | Orthopedic Progress Note ---
Orthopedics - Subjective Interval history: Comfortable neurovascular intact hemoglobin went from 8.5-to 8.3 postoperatively. Drain has been removed ready to start PT discharge planning for swing bed. Exam - Constitutional Vitals: Period Temp Pulse Resp BP Sys/Barry Pulse Ox Last 24 Hr 98.0 F-99.4 F 79-110 12-20 105-187/50-85 92-100 Results - Labs CBC & BMP: 11/07/16 07:28 11/07/16 07:28
[2016-11-07] MEDS: METOPROLOL TARTRATE 50 MG TABLET PO SCH ×2 (09:54→21:22)
[2016-11-07] MEDS: HYDROmorphone 2 MG/1 ML VIAL IV PRN ×3 (10:52→21:24)
--- NOTE | 2016-11-07 12:17 | Pathology Report from [facility] ---
[facility] [place] ACCESSION # : [id number] PATIENT NAME : Urszula Jones ORDERING DR : JOSSIE LAURA JR, MD CLINICAL HX: RT femorla neck FX POST-OP DX: Same SPECIMEN INFO: RT hip bone & tissue GROSS DESCRIPTION: The specimen is received in formalin labeled with the patients name and consists of a fractured femoral head measuring 4.2 x 4.2 x 4.0 cm. The articular surface is smooth and covarrubias with no subchondral eburnation seen. The area of fracture is shaggy and hemorrhagic with no softening appreciated. Received separately in the container is a portion of femoral neck measuring 2.5 x 2.2 x 2.3 cm. Order Tracer tissue submitted in one cassette following decalcification. DIAGNOSIS FOR URSZULA JONES: RIGHT HIP, TOTAL REPLACEMENT: Fragmented bone with marked hemorrhage and reactive changes c/w fracture. COLLECTED DATE: 11/06/2016 [facility] [place] REPORT DATE: 11/07/2016 ELECTRONICALLY SIGNED BY: Miriam Clark M.D. 11/07/2016 - 10:21:57 ARIANNA
[2016-11-07] MEDS ORDERED: INFLUENZA VIRUS VACCINE 0.5 ML SYRINGE IM ONE (16:33)
--- NOTE | 2016-11-07 16:42 | Hospitalist Progress Note ---
Assessment and Plan (1) Subcapital fracture of right femur Status: Acute Assessment and plan: s/p right bipolar orif, rehab on Thursday, cont arixtra Current Visit: Yes (2) Chronic diastolic heart failure Status: Acute Assessment and plan: bnp, stable Current Visit: Yes (3) Acute on chronic renal failure Status: Acute Assessment and plan: stable Current Visit: Yes (4) Dehydration Status: Acute Assessment and plan: Resolved Current Visit: Yes (5) Anemia Status: Acute Assessment and plan: hgb hold cont to monitor Current Visit: Yes (6) Hypertension Status: Chronic Assessment and plan: change to metoprolol 50 mg po bid, restart hydralazine 25 mg po bid Current Visit: No Qualifiers: Hypertension type: essential hypertension Qualified Code(s): I10 - Essential (primary) hypertension (7) IDDM (insulin dependent diabetes mellitus) Status: Acute Assessment and plan: BS not controlled, increase lantus Current Visit: Yes Hospitalist: Subjective Interval history: Patient doing well except seems rather tachycardic today. We will change her to metoprolol. We will try to get her out of bed today. We are planning her to go to rehab on Thursday. Dr. Lucas in the room. Exam - Constitutional Vitals: Period Temp Pulse Resp BP Sys/Barry Pulse Ox Last 24 Hr 96.8 F-99.2 F 85-110 16-20 106-187/64-85 92-96 Exam: Heart Rate-[tachy] Lungs-[CTAB] GI-[+bs soft and nontender Neuro alert and oriented times 3 psych [normal mood and affect] General [no acute distress] Results - Labs CBC & BMP: 11/07/16 07:28 11/07/16 07:28 Lab Results: I have reviewed the past 24 hour labs Labs: Hemoglobin A1c 9.5
[2016-11-07] MEDS ORDERED: TUBERCULIN SKIN TEST 0.1 ML SYRINGE INTRADERM ONE (16:48)
--- NOTE | 2016-11-07 16:51 | Case Mgmt Physician Query Form ---
TB Signs and Symptoms Screening ([place]) INSTRUCTIONS: To be completed annually on residents/staff with a significant Tuberculin Skin Test (TST) upon admission/hire or a prior significant TST. To be completed on all staff at hire. Please respond to each listed symptom with an (X) in either the "YES" or "NO" box. Do you currently have any of the following symptoms: YES NO ( ) ( x) A cough If yes, is it: ( ) Productive ( ) Non- productive ( ) (x ) Hemoptysis (spitting up blood) ( ) (x ) Chest pains ( ) (x ) Weight Loss ( ) (x ) Fever ( ) (x ) Night Sweats ( x) ( ) Weakness ( ) ( x) Loss of Appetite ( ) ( x) Difficulty Breathing If you answered YES" to any of the above questions, how long have symptoms been present? Comments: If you have any questions, please contact me. Thank you, Yulissa Mon RN, Office : [phone] Email : [email or web address]
[2016-11-07] MEDS ORDERED: INSULIN GLARGINE 100 UNIT/ML SUBCUT SCH (21:00)
[2016-11-07] MEDS: AMITRIPTYLINE 25 MG TABLET PO PRN (21:22)
[2016-11-07] MEDS: MONTELUKAST 10 MG TABLET PO SCH (21:22)
[2016-11-07] MEDS: hydrALAZINE 25 MG TABLET PO SCH (21:22)
[2016-11-07] MEDS: FONDAPARINUX 2.5 MG/0.5 ML SYRINGE SUBCUT SCH (21:26)
[2016-11-07] MEDS: ATORVASTATIN 40 MG TABLET PO SCH (21:38)
[2016-11-08 02:13] LABS: Basophils % 0.3 % (0.0-0.8); Eosinophils # 0.1 10*3/uL (0.0-0.87); Eosinophils % 0.7 % (0.00-10.9); Hematocrit 29.1 VOL% (35.7-47.0); Hemoglobin 9.1 GM/DL (12.0-16.0); Immature Granulocytes % 1.1 %; Immature Granulocytes Absolute 0.11 #; Lymphocytes # 2.7 10*3/uL (1.4-4.0); Lymphocytes % 25.7 % (21.3-54.2); Mean Corpuscular HGB Conc 31.3 GM/DL (32-36); Mean Corpuscular Hemoglobin 27 PG (27-34); Mean Corpuscular Volume 85.1 FL (87-102); Mean Platelet Volume 11.5 FL (9.6-12.0); Monocytes # 0.7 10*3/uL (0.11-0.8); Monocytes % 6.8 % (1.7-12.7); Neutrophils # 6.8 10*3/uL (1.4-7.4); Neutrophils % 65.4 % (38.7-73.9); Platelet Count 226 T/CUMM (130-400); Red Blood Count 3.42 MC/CUMM (3.8-5.5); White Blood Count 10.5 T/CUMM (4-12)
[2016-11-08 02:38] LABS: Osmolality,Calculated 280.2 MOS/KG (273-304); Potassium 4.5 MMOL/L (3.5-5.1)
[2016-11-08] MEDS: LEVOTHYROXINE 25 MCG TABLET PO SCH (06:50)
--- NOTE | 2016-11-08 07:56 | Orthopedic Progress Note ---
Orthopedics - Subjective Interval history: She is alert and stable. Plans are underway to transfer her to a swing bed type unit Thursday Exam - Constitutional Vitals: Period Temp Pulse Resp BP Sys/Barry Pulse Ox Last 24 Hr 96.8 F-98.8 F 85-104 16-18 126-191/64-80 95-96 Results - Labs CBC & BMP: 11/08/16 01:54 11/08/16 01:54
[2016-11-08] MEDS: INSULIN REGULAR 100 UNIT/ML SUBCUT SCH ×4 (08:41→21:22)
[2016-11-08] MEDS: ALLOPURINOL 300 MG TABLET PO SCH (08:43)
[2016-11-08] MEDS: hydrALAZINE 25 MG TABLET PO SCH ×2 (08:44→21:21)
[2016-11-08] MEDS: DULoxetine 30 MG CAPSULE PO SCH (08:45)
[2016-11-08] MEDS: MAGNESIUM GLUCONATE 500 MG TABLET PO SCH (08:45)
[2016-11-08] MEDS: METOPROLOL TARTRATE 50 MG TABLET PO SCH (08:46)
[2016-11-08] MEDS: ASPIRIN EC 81 MG TABLET PO SCH (08:46)
[2016-11-08] MEDS: DOCUSATE SODIUM 100 MG CAPSULE PO SCH ×2 (08:46→21:21)
[2016-11-08] MEDS: PANTOPRAZOLE 40 MG TABLET PO SCH (08:47)
[2016-11-08] MEDS: POLYETHYLENE GLYCOL POWDER 17 GM PACK PO SCH (08:47)
[2016-11-08] MEDS: CALCIUM (CARBONATE) 600 MG TABLET PO SCH (08:47)
[2016-11-08] MEDS: predniSONE 5 MG TABLET PO SCH ×2 (08:47→21:21)
[2016-11-08] MEDS: MULTIVITAMIN (CENTRUM) TABLET PO SCH (08:48)
[2016-11-08] MEDS: AMYLASE PO SCH ×3 (08:48→17:11)
[2016-11-08] MEDS: PROTEASE PO SCH ×3 (08:48→17:11)
[2016-11-08] MEDS: Lutein [Lutein] 20 MG PO SCH (08:48)
[2016-11-08] MEDS: LIPASE PO SCH ×3 (08:48→17:11)
--- NOTE | 2016-11-08 13:27 | Hospitalist Progress Note ---
Assessment and Plan (1) Subcapital fracture of right femur Status: Acute Assessment and plan: s/p right bipolar orif, rehab on Thursday, cont arixtra Current Visit: Yes (2) Chronic diastolic heart failure Status: Acute Assessment and plan: bnp elevated at 908, will start diuretics and increase metoprolol to 100 mg po bid Current Visit: Yes (3) Acute on chronic renal failure Status: Acute Assessment and plan: Improve significantly, continue to monitor while on diuretics. Current Visit: Yes (4) Dehydration Status: Acute Assessment and plan: Resolved evidence of volume overload. Current Visit: Yes (5) Anemia Status: Acute Assessment and plan: hgb hold cont to monitor Current Visit: Yes (6) Hypertension Status: Chronic Assessment and plan: Not controlled will increase metoprolol to 100 mg twice daily, restart Imdur and start Norvasc. Current Visit: No Qualifiers: Hypertension type: essential hypertension Qualified Code(s): I10 - Essential (primary) hypertension (7) IDDM (insulin dependent diabetes mellitus) Status: Acute Assessment and plan: BS not controlled, increase lantus and and mealtime coverage Current Visit: Yes Hospitalist: Subjective Interval history: Blood sugars are still not well controlled. Patient did have a good bowel movement today. Patient says she is eating well and we plan for her to get her rehab if okay with Dr. Lucas on Thursday. Blood pressure any way too high. BS not controlled. Exam - Constitutional Vitals: Period Temp Pulse Resp BP Sys/Barry Pulse Ox Last 24 Hr 97.4 F-98.8 F 85-104 16-20 135-198/64-95 90-96 Exam: Heart Rate-[tachy] Lungs-[CTAB] GI-[+bs soft and nontender Neuro alert and oriented times 3 psych [normal mood and affect] General [no acute distress] Results - Labs CBC & BMP: 11/08/16 01:54 11/08/16 01:54 Lab Results: I have reviewed the past 24 hour labs Labs: BNP is 908
[2016-11-08] MEDS ORDERED: INSULIN GLARGINE 100 UNIT/ML SUBCUT SCH (13:31)
[2016-11-08] MEDS: amLODIPine 5 MG TABLET PO SCH (14:27)
[2016-11-08] MEDS: FUROSEMIDE 40 MG/4 ML VIAL IV SCH (14:27)
[2016-11-08] MEDS: INSULIN LISPRO 100 UNIT/ML SUBCUT SCH ×2 (17:08→21:22)
[2016-11-08] MEDS: FONDAPARINUX 2.5 MG/0.5 ML SYRINGE SUBCUT SCH (21:20)
[2016-11-08] MEDS: MONTELUKAST 10 MG TABLET PO SCH (21:21)
[2016-11-08] MEDS: METOPROLOL TARTRATE 100 MG TABLET PO SCH (21:21)
[2016-11-08] MEDS: AMITRIPTYLINE 25 MG TABLET PO PRN (21:21)
[2016-11-08] MEDS: ATORVASTATIN 40 MG TABLET PO SCH (21:21)
[2016-11-09 03:52] LABS: Calcium 8.9 MG/DL (8.5-10.1); Magnesium 1.7 MG/DL (1.8-2.4); Osmolality,Calculated 282.4 MOS/KG (273-304); Potassium 4.2 MMOL/L (3.5-5.1)
[2016-11-09] MEDS: LEVOTHYROXINE 25 MCG TABLET PO SCH (06:22)
[2016-11-09] MEDS: INSULIN LISPRO 100 UNIT/ML SUBCUT SCH ×4 (08:32→21:06)
[2016-11-09] MEDS: INSULIN REGULAR 100 UNIT/ML SUBCUT SCH ×4 (08:33→21:06)
[2016-11-09] MEDS: Lutein [Lutein] 20 MG PO SCH (08:34)
[2016-11-09] MEDS: LIPASE PO SCH ×3 (08:34→16:51)
[2016-11-09] MEDS: AMYLASE PO SCH ×3 (08:34→16:51)
[2016-11-09] MEDS: PROTEASE PO SCH ×3 (08:34→16:51)
[2016-11-09] MEDS ORDERED: MAGNESIUM SULF RIDER 2 GM in PREMIX 1 EACH IV ONE (08:42)
[2016-11-09] MEDS: MAGNESIUM GLUCONATE 500 MG TABLET PO SCH (08:56)
[2016-11-09] MEDS: DULoxetine 30 MG CAPSULE PO SCH (08:58)
[2016-11-09] MEDS: ISOSORBIDE MONONITRATE 30 MG TABLET PO SCH (08:59)
[2016-11-09] MEDS: hydrALAZINE 25 MG TABLET PO SCH ×2 (08:59→21:05)
[2016-11-09] MEDS: predniSONE 5 MG TABLET PO SCH ×2 (08:59→21:05)
[2016-11-09] MEDS: MULTIVITAMIN (CENTRUM) TABLET PO SCH (08:59)
[2016-11-09] MEDS: PANTOPRAZOLE 40 MG TABLET PO SCH (08:59)
[2016-11-09] MEDS: ASPIRIN EC 81 MG TABLET PO SCH (08:59)
[2016-11-09] MEDS: amLODIPine 5 MG TABLET PO SCH (08:59)
[2016-11-09] MEDS: ALLOPURINOL 300 MG TABLET PO SCH (08:59)
[2016-11-09] MEDS: METOPROLOL TARTRATE 100 MG TABLET PO SCH ×2 (09:00→21:05)
[2016-11-09] MEDS: POLYETHYLENE GLYCOL POWDER 17 GM PACK PO SCH (09:00)
[2016-11-09] MEDS: DOCUSATE SODIUM 100 MG CAPSULE PO SCH ×2 (09:00→21:05)
[2016-11-09] MEDS: FUROSEMIDE 40 MG/4 ML VIAL IV SCH (09:00)
--- NOTE | 2016-11-09 09:56 | Orthopedic Progress Note ---
Orthopedics - Subjective Interval history: Her situation is unchanged. She is stable. Alert. Plans are still underway for her to be transferred to a swing bed Thursday Exam - Constitutional Vitals: Period Temp Pulse Resp BP Sys/Barry Pulse Ox Last 24 Hr 97.1 F-99.1 F 91-107 18-20 132-154/58-86 92-97 Results - Labs CBC & BMP: 11/08/16 01:54 11/09/16 02:14
--- NOTE | 2016-11-09 11:44 | Hospitalist Progress Note ---
Assessment and Plan (1) Subcapital fracture of right femur Status: Acute Assessment and plan: s/p right bipolar orif, rehab on Thursday, cont arixtra Current Visit: Yes (2) Chronic diastolic heart failure Status: Acute Assessment and plan: bnp elevated at 908, continue Lasix and metoprolol to 100 mg po bid Current Visit: Yes (3) Acute on chronic renal failure Status: Acute Assessment and plan: continue to monitor while on diuretic Current Visit: Yes (4) Dehydration Status: Acute Assessment and plan: Resolved evidence of volume overload. Current Visit: Yes (5) Anemia Status: Acute Assessment and plan: hgb stable Current Visit: Yes (6) Hypertension Status: Chronic Assessment and plan: Not controlled continue metoprolol to 100 mg twice daily, Imdur and Norvasc. Current Visit: No Qualifiers: Hypertension type: essential hypertension Qualified Code(s): I10 - Essential (primary) hypertension (7) IDDM (insulin dependent diabetes mellitus) Status: Acute Assessment and plan: BS not controlled, increase lantus and and mealtime coverage Current Visit: Yes Hospitalist: Subjective Interval history: Spoke with daughter today. Patient is doing excellent and gets up to go to the commode with assistance. Her daughter does not want her to go to [facility] in [place] she preferred [facility] swing bed. First she said [facility] but I told her she would have to do a total of 3 hours she said she agreed that she could probably do that much rehab in 1 day. Exam - Constitutional Vitals: Period Temp Pulse Resp BP Sys/Barry Pulse Ox Last 24 Hr 97.1 F-99.1 F 91-107 16-20 132-148/58-79 92-97 Exam: Heart Rate-[RRR] Lungs-[CTAB] GI-[+bs soft and nontender Neuro alert and oriented times 3, motor 5 out of 5 psych [normal mood and affect] General [no acute distress] Results - Labs CBC & BMP: 11/08/16 01:54 11/09/16 02:14 Lab Results: I have reviewed the past 24 hour labs
[2016-11-09] MEDS: ATORVASTATIN 40 MG TABLET PO SCH (21:05)
[2016-11-09] MEDS: MONTELUKAST 10 MG TABLET PO SCH (21:05)
[2016-11-09] MEDS: AMITRIPTYLINE 25 MG TABLET PO PRN (21:05)
[2016-11-09] MEDS: FONDAPARINUX 2.5 MG/0.5 ML SYRINGE SUBCUT SCH (21:05)
[2016-11-09] MEDS: INSULIN GLARGINE 100 UNIT/ML SUBCUT SCH (21:06)
[2016-11-10] MEDS: LEVOTHYROXINE 25 MCG TABLET PO SCH (06:25)
[2016-11-10 06:29] LABS: Basophils # 0.1 10*3/uL (0.0-0.2); Basophils % 0.4 % (0.0-0.8); Eosinophils # 0.1 10*3/uL (0.0-0.87); Eosinophils % 0.9 % (0.00-10.9); Hematocrit 26.6 VOL% (35.7-47.0); Hemoglobin 8.6 GM/DL (12.0-16.0); Immature Granulocytes Absolute 0.13 #; Lymphocytes # 3.4 10*3/uL (1.4-4.0); Lymphocytes % 27.1 % (21.3-54.2); Mean Corpuscular HGB Conc 32.3 GM/DL (32-36); Mean Corpuscular Hemoglobin 27 PG (27-34); Mean Corpuscular Volume 83.6 FL (87-102); Mean Platelet Volume 12.1 FL (9.6-12.0); Monocytes # 0.9 10*3/uL (0.11-0.8); Monocytes % 7.3 % (1.7-12.7); Neutrophils % 63.3 % (38.7-73.9); Platelet Count 259 T/CUMM (130-400); Red Blood Count 3.18 MC/CUMM (3.8-5.5); Red Cell Distribution Width 17.8 % (9.3-17.3); White Blood Count 12.7 T/CUMM (4-12)
[2016-11-10 06:57] LABS: Calcium 8.5 MG/DL (8.5-10.1); Magnesium 1.9 MG/DL (1.8-2.4); Osmolality,Calculated 282.5 MOS/KG (273-304); Potassium 4.2 MMOL/L (3.5-5.1)
[2016-11-10] MEDS: LIPASE PO SCH ×3 (08:00→18:18)
[2016-11-10] MEDS: AMYLASE PO SCH ×3 (08:00→18:18)
[2016-11-10] MEDS: PROTEASE PO SCH ×3 (08:00→18:18)
--- NOTE | 2016-11-10 08:41 | Orthopedic Progress Note ---
Orthopedics - Subjective Interval history: Comfortable. Mated to [facility] this weekend progressing very slowly. To rehab later today most likely. Discharge orders/instruction Exam - Constitutional Vitals: Period Temp Pulse Resp BP Sys/Barry Pulse Ox Last 24 Hr 97.5 F-98.6 F 86-96 16-19 124-152/54-74 92-97 Results - Labs CBC & BMP: 11/10/16 05:11 11/10/16 05:11
[2016-11-10] MEDS: Lutein [Lutein] 20 MG PO SCH (09:00)
[2016-11-10] MEDS: INSULIN LISPRO 100 UNIT/ML SUBCUT SCH ×4 (10:12→21:47)
[2016-11-10] MEDS: INSULIN REGULAR 100 UNIT/ML SUBCUT SCH ×4 (10:13→21:47)
[2016-11-10] MEDS: MULTIVITAMIN (CENTRUM) TABLET PO SCH (10:15)
[2016-11-10] MEDS: hydrALAZINE 25 MG TABLET PO SCH ×2 (10:15→21:46)
[2016-11-10] MEDS: ASPIRIN EC 81 MG TABLET PO SCH (10:15)
[2016-11-10] MEDS: ISOSORBIDE MONONITRATE 30 MG TABLET PO SCH (10:16)
[2016-11-10] MEDS: MAGNESIUM GLUCONATE 500 MG TABLET PO SCH (10:17)
[2016-11-10] MEDS: FUROSEMIDE 40 MG/4 ML VIAL IV SCH (10:17)
[2016-11-10] MEDS: METOPROLOL TARTRATE 100 MG TABLET PO SCH ×2 (10:17→21:46)
[2016-11-10] MEDS: PANTOPRAZOLE 40 MG TABLET PO SCH (10:18)
[2016-11-10] MEDS: predniSONE 5 MG TABLET PO SCH ×2 (10:18→21:47)
[2016-11-10] MEDS: amLODIPine 5 MG TABLET PO SCH (10:18)
[2016-11-10] MEDS: DULoxetine 30 MG CAPSULE PO SCH (10:19)
[2016-11-10] MEDS: ALLOPURINOL 300 MG TABLET PO SCH (10:20)
[2016-11-10] MEDS: POLYETHYLENE GLYCOL POWDER 17 GM PACK PO SCH (10:20)
[2016-11-10] MEDS: DOCUSATE SODIUM 100 MG CAPSULE PO SCH ×2 (10:21→21:47)
--- NOTE | 2016-11-10 12:52 | Hospitalist Progress Note ---
Assessment and Plan (1) Congestive heart failure Status: Chronic Assessment and plan: The patient had pulmonary edema. This has resolved on IV Lasix. I am going to change the patient is to Lasix 60 mg daily by mouth. The patient will be ready for transfer to [facility] tomorrow morning. Current Visit: No Qualifiers: Congestive heart failure type: diastolic (2) CKD (chronic kidney disease) stage 3, GFR 30-59 ml/min Status: Chronic Current Visit: No (3) Subcapital fracture of right femur Status: Acute Current Visit: Yes Hospitalist: Subjective Interval history: Mrs. Rolle was admitted to the hospital with right hip fracture and is recovering from open reduction internal fixation. I coordinate care with case work aide today. The patient will go to [facility] tomorrow. Exam - Constitutional Vitals: Period Temp Pulse Resp BP Sys/Barry Pulse Ox Last 24 Hr 97.9 F-99.7 F 87-96 16-19 124-152/54-74 92-97 Exam: Constitutional System: Minimal distress. No tremulousness. The patient is up with physical therapy and making good progress Head: Normocephalic, atraumatic. Ears, Nose and Throat System: No evidence of Otitis or Mastoiditis. No epistaxis or discharge Eyes System: Pupils equal, round, and reactive. Extraocular muscles intact. Neck: Supple, without adenopathy, No jugular venous distention. No thyromegaly , neck mass, or prior surgery apparent. Respiratory System: Chest clear to auscultation. Cardiovascular System: Heart with regular rate and rhythm. No murmur. GI System: Abdomen soft, nontender. Normo active bowel sounds present. Musculoskeletal System: limbs with no pedal edema. Full distal pulses. Neurological System: No discernable sensory deficit. No aphasia Results - Labs CBC & BMP: 11/10/16 05:11 11/10/16 05:11 Lab Results: I have reviewed the past 24 hour labs Specialty Discharge - Follow Up or Referrals Follow up with: Lux Lucas Jr., MD [Physician] - 12/11/16 12:30 pm
[2016-11-10] MEDS: FONDAPARINUX 2.5 MG/0.5 ML SYRINGE SUBCUT SCH (21:46)
[2016-11-10] MEDS: ATORVASTATIN 40 MG TABLET PO SCH (21:46)
[2016-11-10] MEDS: MONTELUKAST 10 MG TABLET PO SCH (21:47)
[2016-11-10] MEDS: AMITRIPTYLINE 25 MG TABLET PO PRN (21:47)
[2016-11-10] MEDS: INSULIN GLARGINE 100 UNIT/ML SUBCUT SCH (21:48)
[2016-11-11] MEDS: LEVOTHYROXINE 25 MCG TABLET PO SCH (06:26)
[2016-11-11 07:40] LABS: Calcium 8.2 MG/DL (8.5-10.1); Magnesium 1.8 MG/DL (1.8-2.4); Osmolality,Calculated 282.8 MOS/KG (273-304); Potassium 3.9 MMOL/L (3.5-5.1)
--- NOTE | 2016-11-11 08:27 | Discharge Summary ---
Hospital Course - Hospital Course Hospital Course: The patient was admitted to the hospital with right hip fracture. She had open reduction and internal fixation of the fracture. The patient had medical complication of pulmonary edema following her surgery. The patient's chronic diastolic congestive heart failure was exacerbated. This was treated with diuretic medication and bedrest. The patient improved. The patient is now ready for transfer to [facility] for further rehab and recovery. On the date of discharge, the chest is clear, heart has regular rate and rhythm, and abdomen soft. Patient medications were reconciled upon admission, and again at the time of discharge. The patient was screened for tobacco use and found to be a occasional smoker. The patient was given 4 minutes of tobacco avoidance education. The patient's medical decsion maker is themself, and when asked, they asked to be Full code. Discharge Time was 32 minutes, including final examination, evaluation and planning, education, reconciliation of medications, writing prescriptions, coordinating care with field nurse case manager, and preparing discharge documentation. - Time spent with patient Time with patient DS: Greater than 30 minutes Time spent discussing smoking cessation with patient: 3 to 10 minutes Diagnosis - Discharge Diagnosis (1) Congestive heart failure Status: Chronic (2) CKD (chronic kidney disease) stage 3, GFR 30-59 ml/min Status: Chronic (3) Subcapital fracture of right femur Status: Acute Specialty Discharge - Follow Up or Referrals Follow up with: Lux Lucas Jr., MD [Physician] - 12/11/16 12:30 pm Discharge Plan - Discharge Data Disposition: Disch To Home/Self Care Condition at Discharge: Stable Discharge Diet: heart healthy Activity: as per physical therapy - Discharge Medications New Insulin Lispro [HumaLOG] 12 unit SUBCUT ACHS unit Insulin Regular [HumuLIN R] See Protocol SUBCUT ACHS unit Bisacodyl Supp [Dulcolax Supp] 10 mg RECTAL DAILY PRN supp PRN Reason: Constipation Fondaparinux [Arixtra] 2.5 mg SUBCUT Q24H syringe Magnesium Hydroxide Susp [Milk of Magnesia] 30 ml PO Q6H PRN PRN Reason: Constipation Continue predniSONE TAB [PredniSONE] 5 mg PO BID Montelukast Tab [Singulair Tab] 10 mg PO BEDTIME Levothyroxine Tab [Synthroid Tab] 25 mcg PO DAILY@0700 Aspirin [Ecotrin] 81 mg PO DAILY Multivitamin [One Daily] 1 each PO DAILY Furosemide Tab [Lasix Tab] 80 mg PO DAILY Potassium Chloride 20 meq PO BID Amitriptyline HCl 25 mg PO BEDTIME PRN PRN Reason: ANXIETY/SLEEP Duloxetine HCl [Cymbalta] 60 mg PO DAILY Dexlansoprazole [Dexilant] 60 mg PO DAILY Allopurinol 150 mg PO DAILY Lipase/Protease/Amylase [Creon 12,000 Units] 12,000 unit PO TID W/MEALS Diphenoxylate/Atrop 2.5-0.025 [Lomotil Tab] 1 tablet PO Q6H PRN PRN Reason: Diarrhea Magnesium 250 mg PO DAILY Calcium (Carbonate) [Caltrate 600] 1 tablet PO DAILY Atorvastatin [Lipitor] 40 mg PO BEDTIME Carvedilol [Coreg] 6.25 mg PO BID #60 tablet Isosorbide Mononitrate [Imdur] 30 mg PO DAILY #30 tablet Lutein 20 mg PO DAILY Ferrous Sulfate [Ferrous Sulfate Cap] 325 mg PO DAILY hydrALAZINE TAB [Apresoline Tab] 25 mg PO BID #60 tablet Losartan [Cozaar] 25 mg PO DAILY #30 tablet Polyethylene Glycol Powder [Miralax] 17 gm PO DAILY Changed Insulin Detemir [Levemir FlexPen] 50 unit SUBCUT BEDTIME #0 - Follow Up or Referral Follow Up: Lux Lucas Jr., MD [Physician] - 12/11/16 12:30 pm - Forms/Instructions Instructions: Hip Fracture (GEN) Exam - Constitutional Vitals: Period Temp Pulse Resp BP Sys/Barry Pulse Ox Last 24 Hr 97.0 F-99.7 F 89-103 16-20 116-141/55-66 90-97 Discharge Results Procedures and tests throughout hospitalization: Pending Orders 11/06/16 Red Blood Cells Leuko Red Stat Type and Screen Stat Labs on day of discharge: Labs from last 24 hours 11/11/16 11/11/16 11/10/16 06:46 06:36 20:17 Sodium 130 L Potassium 3.9 Chloride 96 L Carbon Dioxide 27 Anion Gap 10.9 BUN 64 H Creatinine 1.70 H GFR Calculation 25 BUN/Creatinine Ratio 37.00 H Glucose 180 H POC Glucose 218 H 119 H Calculated Osmolality 282.8 Calcium 8.2 L Magnesium 1.8 11/10/16 11/10/16 16:57 10:42 Sodium Potassium Chloride Carbon Dioxide Anion Gap BUN Creatinine GFR Calculation BUN/Creatinine Ratio Glucose POC Glucose 166 H 289 H Calculated Osmolality Calcium Magnesium DS: Provider Date of admission: 11/05/16 13:39 Primary care physician: Crissy Greene NP Attending physician on admission: Tiffanie Medel MD Consults: 11/05/16 15:51 Consult to Physician [CONS] Routine Comment: R hip fracture Consulting Provider: Lux Lucas Jr. Consulting Provider Notified: Yes When should Consulting Provider be notified: Now Person Notified: Zari called Date Notified: 11/05/16 Time Notified: 16:04 11/05/16 16:24 Consult to Pastoral Services [CONS] Routine Comment: Pastoral Screen: Request Medical Laboratory Manager Visit Pastoral Screen Source of Request: Patient 11/06/16 07:51 Consult to Case Mgmt/Social Srvs [CONS] Routine Reason for Case Mgmt/Social Srvs: Rehab Home Health Equipment Consult Comment: Bedside Commode, CPM, Walker Consult to Occupational Therapy [CONS] Routine Reason for Occupational Therapy: Evaluate and Treat Consult Comment: ADL's Consult to Physical Therapy [CONS] Routine Reason for Physical Therapy: Evaluate and Treat Gait Training Consult Comment: WBAT with hip precautions Discharging clinician: Benjamin Lowery MD
[2016-11-11] MEDS ORDERED: FUROSEMIDE 20 MG TABLET PO SCH (09:00)
[2016-11-11] MEDS: INSULIN LISPRO 100 UNIT/ML SUBCUT SCH ×2 (09:06→11:30)
[2016-11-11] MEDS: INSULIN REGULAR 100 UNIT/ML SUBCUT SCH ×2 (09:07→11:30)
[2016-11-11] MEDS: ASPIRIN EC 81 MG TABLET PO SCH (09:09)
[2016-11-11] MEDS: hydrALAZINE 25 MG TABLET PO SCH (09:09)
[2016-11-11] MEDS: DOCUSATE SODIUM 100 MG CAPSULE PO SCH (09:10)
[2016-11-11] MEDS: MULTIVITAMIN (CENTRUM) TABLET PO SCH (09:10)
[2016-11-11] MEDS: ISOSORBIDE MONONITRATE 30 MG TABLET PO SCH (09:11)
[2016-11-11] MEDS: METOPROLOL TARTRATE 100 MG TABLET PO SCH (09:11)
[2016-11-11] MEDS: DULoxetine 30 MG CAPSULE PO SCH (09:11)
[2016-11-11] MEDS: Lutein [Lutein] 20 MG PO SCH (09:12)
[2016-11-11] MEDS: POLYETHYLENE GLYCOL POWDER 17 GM PACK PO SCH (09:12)
[2016-11-11] MEDS: MAGNESIUM GLUCONATE 500 MG TABLET PO SCH (09:12)
[2016-11-11] MEDS: predniSONE 5 MG TABLET PO SCH (09:13)
[2016-11-11] MEDS: amLODIPine 5 MG TABLET PO SCH (09:13)
[2016-11-11] MEDS: PANTOPRAZOLE 40 MG TABLET PO SCH (09:13)
[2016-11-11] MEDS: ALLOPURINOL 300 MG TABLET PO SCH (09:13)
[2016-11-11] MEDS: AMYLASE PO SCH ×2 (09:42→12:00)
[2016-11-11] MEDS: PROTEASE PO SCH ×2 (09:42→12:00)
[2016-11-11] MEDS: LIPASE PO SCH ×2 (09:42→12:00)
[2016-11-11 11:04] VITALS: BP 140/63
--- NOTE | 2016-11-11 12:51 | Physician Query Form ---
CLICK EDIT DOCUMENT TO SELECT QUERY ANSWER --> OK --> SIGN Clare Pizarro RN Clinical Hot Box Operator W) [phone] (f) [phone] [email or web address] PROVIDERS: Make your selection(s) from the choices in EACH section by typing an "x" and enter comments in the comment section. Please use your independent medical judgment in providing your response. This request does not imply that any particular answer is desired or expected. CLINICAL INDICATORS: (Providers should not edit this section) Based on documentation of "He also for reasons which are not completely clear suffered a laceration of his left upper lobe which also resulted in massive hemorrhage. This resulted in profound hypotension and the patient at the termination of the procedure. Pt. transfused with 15 units PRBC's. Please clarify which, if any, of the following is the etiology of the above symptoms and treatment rendered: ( ) Hypovolemic shock ( ) Cardiogenic shock ( ) Hemorrhagic shock ( ) Traumatic shock ( ) Shock due to, please specify etiology: ( ) Shock, unknown etiology ( ) Drug induced, please specify substance: ( ) Hypotension, unknown etiology ( ) Other, please specify: ( ) Clinically unable to determine COMMENTS: PLEASE ALSO DOCUMENT RESPONSE IN PROGRESS NOTES AND/OR DISCHARGE SUMMARY Use of terms such as suspected, likely, or probable (associated with a specific diagnosis that is being evaluated, monitored, or treated as if it exists) are acceptable and can be restated in the discharge summary if not ruled out. MTDD
== END 2016-11-11 11:20 | disposition swing bed (61) | DRG 469 ==
LOC: EDUNIT# → N.ED 12:22 → SUATTDRO 13:39 → N.EDINP 13:39 → N.3E 15:50
PROVIDERS: ADMIT Internal Medicine; ATTEND Internal Medicine

== ENCOUNTER 2016-12-04 22:13 | Inpatient (IN) ==
[2016-12-04 23:02] LABS: Basophils % 0.1 % (0.0-0.8); Eosinophils # 0.1 10*3/uL (0.0-0.87); Eosinophils % 0.3 % (0.00-10.9); Hematocrit 21.5 VOL% (35.7-47.0); Hemoglobin 6.9 GM/DL (12.0-16.0); Immature Granulocytes % 0.6 %; Immature Granulocytes Absolute 0.11 #; Lymphocytes # 3.1 10*3/uL (1.4-4.0); Lymphocytes % 16.9 % (21.3-54.2); Mean Corpuscular HGB Conc 32.1 GM/DL (32-36); Mean Corpuscular Hemoglobin 27 PG (27-34); Mean Corpuscular Volume 83.3 FL (87-102); Monocytes # 1.4 10*3/uL (0.11-0.8); Monocytes % 7.8 % (1.7-12.7); Neutrophils # 13.5 10*3/uL (1.4-7.4); Neutrophils % 74.3 % (38.7-73.9); Platelet Count 371 T/CUMM (130-400); Red Blood Count 2.58 MC/CUMM (3.8-5.5); Red Cell Distribution Width 17.7 % (9.3-17.3); White Blood Count 18.1 T/CUMM (4-12)
[2016-12-04 23:09] LABS: INR 0.9; PT Patient Result 9.7 SECS; Partial Thromboplastin Time 24.7 SECS (0-40)
[2016-12-04 23:14] LABS: Alanine Aminotransferase 40 U/L (13-56); Albumin 2.2 G/DL (3.4-5.0); Alkaline Phosphatase 226 U/L (45-117); Aspartate Amino Transferase 52 U/L (0-37); Blood Urea Nitrogen 90 MG/DL (7-18); Calcium 8.8 MG/DL (8.5-10.1); Glucose 71 MG/DL (74-106); Osmolality,Calculated 298.8 MOS/KG (273-304); Potassium 5.4 MMOL/L (3.5-5.1); Sodium 137 MMOL/L (136-145); Total Protein 6.3 G/DL (6.4-8.3)
[2016-12-04 23:46] LABS: Apearance,Urine CLOUDY (Clear); Bacteria,Urine Moderate /HPF (Few); Bilirubin,Urine Negative (Negative); Blood, Urine Moderate mg/dL (Negative); Glucose,Urine (UA) Negative (Negative); Ketones,Urine Negative (Negative); Mucus,Urine Occasional /LPF (Occasional); Nitrite,Urine Negative (Negative); Protein,Urine Negative; RBC,Urine 15 /HPF (0-4); Squamous Epithelial Cell,Urine Occasional /HPF (0-10); Urine Color Yellow (Yellow); Urine Specific Gravity 1.011 (1.001-1.035); Urine Urobilinogen < 2.0 EU/DL (0.2-1.0); WBC,Urine 57 /HPF (0-6)
[2016-12-05 00:29] LABS: Anisocytosis 1+; Ovalocytes Few; Platelet Estimate Normal
[2016-12-05] MEDS ORDERED: LEVOFLOXACIN INJ 500 MG in PREMIX 1 EACH IV STA (01:10)
[2016-12-05] MEDS ORDERED: LEVOFLOXACIN INJ 100 ML IV ONE (01:25)
[2016-12-05] MEDS ORDERED: ONDANSETRON 4 MG/2 ML VIAL IV PRN (01:52)
[2016-12-05] MEDS ORDERED: SODIUM CHLORIDE 0.9% 250 ML IV PRN (02:03)
[2016-12-05] MEDS: ACETAMINOPHEN 325 MG TABLET PO PRN ×2 (03:45→10:34)
[2016-12-05] MEDS ORDERED: PANTOPRAZOLE 40 MG TABLET PO SCH ×2 (06:00→09:00)
[2016-12-05] MEDS: LEVOTHYROXINE 50 MCG TABLET PO SCH (06:21)
[2016-12-05] MEDS ORDERED: PROTEASE PO SCH (08:00)
[2016-12-05] MEDS ORDERED: AMYLASE PO SCH (08:00)
[2016-12-05] MEDS ORDERED: LIPASE PO SCH (08:00)
[2016-12-05] MEDS ORDERED: NON-FORMULARY MEDICATION (Lutein [Lutein] 20 MG) PO SCH (09:00)
[2016-12-05] MEDS: LOSARTAN 25 MG TABLET PO SCH (09:24)
[2016-12-05] MEDS: ALLOPURINOL 300 MG TABLET PO SCH (09:24)
[2016-12-05] MEDS: ASCORBIC ACID 500 MG TABLET PO SCH (09:24)
[2016-12-05] MEDS: CARVEDILOL 6.25 MG TABLET PO SCH ×2 (09:24→16:52)
[2016-12-05] MEDS: DULoxetine 30 MG CAPSULE PO SCH (09:24)
[2016-12-05] MEDS: CALCIUM (CARBONATE) 600 MG TABLET PO SCH (09:25)
[2016-12-05] MEDS: FERROUS SULFATE 325 MG TABLET PO SCH (09:25)
[2016-12-05] MEDS: MULTIVITAMIN (CENTRUM) TABLET PO SCH (09:25)
[2016-12-05] MEDS: predniSONE 5 MG TABLET PO SCH ×2 (09:25→20:53)
[2016-12-05] MEDS: ISOSORBIDE MONONITRATE 30 MG TABLET PO SCH (09:25)
[2016-12-05] MEDS: FUROSEMIDE 80 MG TABLET PO SCH (09:25)
[2016-12-05] MEDS: hydrALAZINE 25 MG TABLET PO SCH ×2 (09:25→20:53)
[2016-12-05] MEDS: MAGNESIUM OXIDE 400 MG TABLET PO SCH (09:25)
[2016-12-05 12:36] LABS: Basophils # 0.1 10*3/uL (0.0-0.2); Basophils % 0.6 % (0.0-0.8); Eosinophils % 0.2 % (0.00-10.9); Hematocrit 31.3 VOL% (35.7-47.0); Hemoglobin 10.1 GM/DL (12.0-16.0); Immature Granulocytes % 0.9 %; Immature Granulocytes Absolute 0.11 #; Lymphocytes # 1.4 10*3/uL (1.4-4.0); Lymphocytes % 11.2 % (21.3-54.2); Mean Corpuscular HGB Conc 32.3 GM/DL (32-36); Mean Corpuscular Hemoglobin 28 PG (27-34); Mean Platelet Volume 10.5 FL (9.6-12.0); Monocytes # 1.2 10*3/uL (0.11-0.8); Monocytes % 9.3 % (1.7-12.7); NRBC # 0.02 10*3/uL; Neutrophils # 9.8 10*3/uL (1.4-7.4); Neutrophils % 77.8 % (38.7-73.9); Platelet Count 241 T/CUMM (130-400); Red Blood Count 3.64 MC/CUMM (3.8-5.5); Red Cell Distribution Width 16.7 % (9.3-17.3); White Blood Count 12.6 T/CUMM (4-12)
[2016-12-05 13:04] LABS: Albumin 1.9 G/DL (3.4-5.0); Bilirubin,Total 0.6 MG/DL (0.2-1.0); Calcium 8.5 MG/DL (8.5-10.1); Osmolality,Calculated 295.1 MOS/KG (273-304); Potassium 4.8 MMOL/L (3.5-5.1); Total Protein 5.8 G/DL (6.4-8.3)
[2016-12-05] MEDS ORDERED: GLUCAGON 1 MG VIAL IM PRN (16:09)
[2016-12-05] MEDS ORDERED: DEXTROSE 50% 25 GM/50 ML VIAL IV PRN (16:09)
[2016-12-05] MEDS: INSULIN LISPRO 100 UNIT/ML SUBCUT SCH ×2 (16:52→20:54)
[2016-12-05 17:53] LABS: Hematocrit 28.1 VOL% (35.7-47.0); Hemoglobin 9.5 GM/DL (12.0-16.0)
[2016-12-05] MEDS: ZALEPLON 5 MG CAPSULE PO PRN (20:53)
[2016-12-05] MEDS: INSULIN GLARGINE 100 UNIT/ML SUBCUT SCH (20:53)
[2016-12-05] MEDS: ATORVASTATIN 40 MG TABLET PO SCH (20:53)
[2016-12-05] MEDS: AMITRIPTYLINE 25 MG TABLET PO PRN (20:53)
[2016-12-05] MEDS: MONTELUKAST 10 MG TABLET PO SCH (20:53)
[2016-12-05] MEDS: PANTOPRAZOLE 40 MG VIAL IV SCH (20:56)
[2016-12-06] MEDS: LEVOFLOXACIN INJ 250 MG in PREMIX 1 EACH IV SCH (02:21)
[2016-12-06 03:08] LABS: Basophils % 0.2 % (0.0-0.8); Eosinophils % 0.1 % (0.00-10.9); Hematocrit 28.7 VOL% (35.7-47.0); Hematocrit 28.9 VOL% (35.7-47.0); Hemoglobin 9.6 GM/DL (12.0-16.0); Hemoglobin 9.7 GM/DL (12.0-16.0); Immature Granulocytes % 0.8 %; Lymphocytes # 2.2 10*3/uL (1.4-4.0); Lymphocytes % 16.4 % (21.3-54.2); Mean Corpuscular HGB Conc 33.6 GM/DL (32-36); Mean Corpuscular Hemoglobin 27 PG (27-34); Mean Corpuscular Volume 80.3 FL (87-102); Mean Platelet Volume 11.3 FL (9.6-12.0); Monocytes # 1.2 10*3/uL (0.11-0.8); Monocytes % 9.3 % (1.7-12.7); NRBC # 0.02 10*3/uL; Neutrophils # 9.7 10*3/uL (1.4-7.4); Neutrophils % 73.2 % (38.7-73.9); Platelet Count 331 T/CUMM (130-400); Red Cell Distribution Width 16.4 % (9.3-17.3); White Blood Count 13.3 T/CUMM (4-12)
[2016-12-06 03:46] LABS: Calcium 8.7 MG/DL (8.5-10.1); Magnesium 1.6 MG/DL (1.8-2.4); Potassium 4.4 MMOL/L (3.5-5.1)
[2016-12-06 04:02] LABS: Band Neutrophils 3 % (0-10); Lymphocytes 15 % (20-55); Myelocytes 1 %; Segmented Neutrophils 73 % (50-85); Total Cells Counted 100
[2016-12-06 04:03] LABS: Anisocytosis 1+; Platelet Estimate Normal
[2016-12-06] MEDS: LEVOTHYROXINE 50 MCG TABLET PO SCH (06:26)
[2016-12-06 06:41] LABS: Hematocrit 29.8 VOL% (35.7-47.0)
[2016-12-06] MEDS: INSULIN LISPRO 100 UNIT/ML SUBCUT SCH ×4 (07:27→20:35)
[2016-12-06] MEDS: predniSONE 5 MG TABLET PO SCH ×2 (09:56→20:10)
[2016-12-06] MEDS: CALCIUM (CARBONATE) 600 MG TABLET PO SCH (09:56)
[2016-12-06] MEDS: FUROSEMIDE 80 MG TABLET PO SCH (09:56)
[2016-12-06] MEDS: ISOSORBIDE MONONITRATE 30 MG TABLET PO SCH (09:56)
[2016-12-06] MEDS: DULoxetine 30 MG CAPSULE PO SCH (09:56)
[2016-12-06] MEDS: CARVEDILOL 6.25 MG TABLET PO SCH ×2 (09:56→17:08)
[2016-12-06] MEDS: PANTOPRAZOLE 40 MG VIAL IV SCH ×2 (09:56→20:10)
[2016-12-06] MEDS: ALLOPURINOL 300 MG TABLET PO SCH (09:56)
[2016-12-06] MEDS: FERROUS SULFATE 325 MG TABLET PO SCH (09:56)
[2016-12-06] MEDS: MULTIVITAMIN (CENTRUM) TABLET PO SCH (09:56)
[2016-12-06] MEDS: ASCORBIC ACID 500 MG TABLET PO SCH (09:56)
[2016-12-06] MEDS: MAGNESIUM OXIDE 400 MG TABLET PO SCH (09:57)
[2016-12-06] MEDS: hydrALAZINE 25 MG TABLET PO SCH ×2 (09:57→20:10)
[2016-12-06] MEDS: LOSARTAN 25 MG TABLET PO SCH (09:57)
[2016-12-06] MEDS ORDERED: MAGNESIUM SULF RIDER 2 GM in PREMIX 1 EACH IV PRN (12:14)
[2016-12-06] MEDS ORDERED: MAGNESIUM SULF RIDER 1 GM in PREMIX 1 EACH IV ONE (12:14)
[2016-12-06] MEDS ORDERED: MAGNESIUM SULF RIDER 4 GM in PREMIX 1 EACH IV PRN (12:14)
[2016-12-06] MEDS: ZINC OXIDE PASTE 113 GM TUBE TOP SCH ×2 (13:16→20:09)
[2016-12-06] MEDS: ATORVASTATIN 40 MG TABLET PO SCH (20:10)
[2016-12-06] MEDS: MONTELUKAST 10 MG TABLET PO SCH (20:10)
[2016-12-06] MEDS: INSULIN GLARGINE 100 UNIT/ML SUBCUT SCH (20:36)
[2016-12-07] MEDS: ZALEPLON 5 MG CAPSULE PO PRN ×2 (01:10→21:43)
[2016-12-07] MEDS: LEVOFLOXACIN INJ 250 MG in PREMIX 1 EACH IV SCH (02:50)
[2016-12-07] MEDS: LEVOTHYROXINE 50 MCG TABLET PO SCH (07:04)
[2016-12-07] MEDS: INSULIN LISPRO 100 UNIT/ML SUBCUT SCH ×4 (08:19→21:42)
[2016-12-07] MEDS: MULTIVITAMIN (CENTRUM) TABLET PO SCH (08:51)
[2016-12-07] MEDS: FERROUS SULFATE 325 MG TABLET PO SCH (08:51)
[2016-12-07] MEDS: DULoxetine 30 MG CAPSULE PO SCH (08:51)
[2016-12-07] MEDS: ASCORBIC ACID 500 MG TABLET PO SCH (08:53)
[2016-12-07] MEDS: CARVEDILOL 6.25 MG TABLET PO SCH ×2 (08:53→16:31)
[2016-12-07] MEDS: hydrALAZINE 25 MG TABLET PO SCH ×2 (08:54→21:43)
[2016-12-07] MEDS: LOSARTAN 25 MG TABLET PO SCH (08:54)
[2016-12-07] MEDS: predniSONE 5 MG TABLET PO SCH ×2 (08:55→21:43)
[2016-12-07] MEDS: MAGNESIUM OXIDE 400 MG TABLET PO SCH (08:57)
[2016-12-07] MEDS: ALLOPURINOL 300 MG TABLET PO SCH (08:57)
[2016-12-07] MEDS: ZINC OXIDE PASTE 113 GM TUBE TOP SCH ×2 (08:57→21:43)
[2016-12-07] MEDS: ISOSORBIDE MONONITRATE 30 MG TABLET PO SCH (08:57)
[2016-12-07] MEDS: FUROSEMIDE 80 MG TABLET PO SCH (08:57)
[2016-12-07] MEDS: CALCIUM (CARBONATE) 600 MG TABLET PO SCH (08:58)
[2016-12-07] MEDS: PANTOPRAZOLE 40 MG VIAL IV SCH ×2 (08:58→21:42)
[2016-12-07 18:00] LABS: Hematocrit 32.2 VOL% (35.7-47.0); Hemoglobin 10.4 GM/DL (12.0-16.0)
[2016-12-07] MEDS: INSULIN GLARGINE 100 UNIT/ML SUBCUT SCH (21:42)
[2016-12-07] MEDS: ATORVASTATIN 40 MG TABLET PO SCH (21:43)
[2016-12-07] MEDS: MONTELUKAST 10 MG TABLET PO SCH (21:43)
[2016-12-08] MEDS: ZALEPLON 5 MG CAPSULE PO PRN (02:47)
[2016-12-08] MEDS: LEVOFLOXACIN INJ 250 MG in PREMIX 1 EACH IV SCH (02:47)
[2016-12-08] MEDS: AMITRIPTYLINE 25 MG TABLET PO PRN (02:49)
[2016-12-08 06:23] LABS: Basophils % 0.2 % (0.0-0.8); Eosinophils % 0.1 % (0.00-10.9); Hematocrit 31.9 VOL% (35.7-47.0); Hemoglobin 10.3 GM/DL (12.0-16.0); Immature Granulocytes % 0.7 %; Immature Granulocytes Absolute 0.07 #; Lymphocytes # 1.9 10*3/uL (1.4-4.0); Lymphocytes % 19.9 % (21.3-54.2); Mean Corpuscular HGB Conc 32.3 GM/DL (32-36); Mean Corpuscular Hemoglobin 26 PG (27-34); Mean Corpuscular Volume 81.8 FL (87-102); Mean Platelet Volume 10.7 FL (9.6-12.0); Monocytes # 0.8 10*3/uL (0.11-0.8); Monocytes % 7.9 % (1.7-12.7); Neutrophils # 6.8 10*3/uL (1.4-7.4); Neutrophils % 71.2 % (38.7-73.9); Platelet Count 312 T/CUMM (130-400); Red Cell Distribution Width 17.2 % (9.3-17.3); White Blood Count 9.5 T/CUMM (4-12)
[2016-12-08 06:44] LABS: Hypochromasia Slight; Lymphocytes 12 % (20-55); Macrocytosis 2+; Platelet Estimate Adequate; Segmented Neutrophils 81 % (50-85); Total Cells Counted 100
[2016-12-08] MEDS: LEVOTHYROXINE 50 MCG TABLET PO SCH (06:47)
[2016-12-08] MEDS: INSULIN LISPRO 100 UNIT/ML SUBCUT SCH ×4 (08:27→21:47)
[2016-12-08] MEDS: hydrALAZINE 25 MG TABLET PO SCH ×2 (09:51→21:47)
[2016-12-08] MEDS: LOSARTAN 25 MG TABLET PO SCH (09:52)
[2016-12-08] MEDS: MAGNESIUM OXIDE 400 MG TABLET PO SCH (09:52)
[2016-12-08] MEDS: FUROSEMIDE 80 MG TABLET PO SCH (09:52)
[2016-12-08] MEDS: CALCIUM (CARBONATE) 600 MG TABLET PO SCH (09:52)
[2016-12-08] MEDS: ISOSORBIDE MONONITRATE 30 MG TABLET PO SCH (09:52)
[2016-12-08] MEDS: DULoxetine 30 MG CAPSULE PO SCH (09:52)
[2016-12-08] MEDS: FERROUS SULFATE 325 MG TABLET PO SCH (09:52)
[2016-12-08] MEDS: CARVEDILOL 6.25 MG TABLET PO SCH ×2 (09:52→17:12)
[2016-12-08] MEDS: ZINC OXIDE PASTE 113 GM TUBE TOP SCH ×2 (09:53→21:59)
[2016-12-08] MEDS: ASCORBIC ACID 500 MG TABLET PO SCH (09:58)
[2016-12-08] MEDS: predniSONE 5 MG TABLET PO SCH ×2 (09:58→21:47)
[2016-12-08] MEDS: MULTIVITAMIN (CENTRUM) TABLET PO SCH (09:58)
[2016-12-08] MEDS: ALLOPURINOL 300 MG TABLET PO SCH (09:58)
[2016-12-08] MEDS: PANTOPRAZOLE 40 MG VIAL IV SCH ×2 (10:06→21:47)
[2016-12-08] MEDS ORDERED: LIDOCAINE 100 MG/5 ML SYRINGE ONE (12:59)
[2016-12-08] MEDS ORDERED: PROPOFOL 200 MG/20 ML VIAL IV ONE ×2 (12:59→14:01)
[2016-12-08] MEDS ORDERED: LIDOCAINE 1% 5 ML VIAL ONE (14:01)
[2016-12-08] MEDS ORDERED: POLYETHYLENE GLYCOL POWDER 255 GM BOTTLE PO ONE (18:00)
[2016-12-08] MEDS ORDERED: MAGNESIUM CITRATE 300 ML BOTTLE PO ONE (21:00)
[2016-12-08] MEDS: MONTELUKAST 10 MG TABLET PO SCH (21:47)
[2016-12-08] MEDS: ATORVASTATIN 40 MG TABLET PO SCH (21:47)
[2016-12-08] MEDS: INSULIN GLARGINE 100 UNIT/ML SUBCUT SCH (21:47)
[2016-12-09] MEDS: LEVOFLOXACIN INJ 250 MG in PREMIX 1 EACH IV SCH (02:03)
[2016-12-09] MEDS ORDERED: MAGNESIUM CITRATE 300 ML BOTTLE PO ONE ×2 (06:23→21:00)
[2016-12-09 07:25] LABS: Calcium 8.6 MG/DL (8.5-10.1); Osmolality,Calculated 305.4 MOS/KG (273-304); Potassium 4.6 MMOL/L (3.5-5.1)
[2016-12-09] MEDS: ZINC OXIDE PASTE 113 GM TUBE TOP SCH ×2 (08:54→22:08)
[2016-12-09] MEDS: INSULIN LISPRO 100 UNIT/ML SUBCUT SCH ×4 (08:58→22:01)
[2016-12-09] MEDS: LEVOTHYROXINE 50 MCG TABLET PO SCH (08:58)
[2016-12-09] MEDS: LOSARTAN 25 MG TABLET PO SCH (09:57)
[2016-12-09] MEDS: MULTIVITAMIN (CENTRUM) TABLET PO SCH (09:57)
[2016-12-09] MEDS: DULoxetine 30 MG CAPSULE PO SCH (09:57)
[2016-12-09] MEDS: ASCORBIC ACID 500 MG TABLET PO SCH (09:57)
[2016-12-09] MEDS: ISOSORBIDE MONONITRATE 30 MG TABLET PO SCH (09:58)
[2016-12-09] MEDS: ALLOPURINOL 300 MG TABLET PO SCH (09:58)
[2016-12-09] MEDS: predniSONE 5 MG TABLET PO SCH ×2 (09:58→22:07)
[2016-12-09] MEDS: MAGNESIUM OXIDE 400 MG TABLET PO SCH (09:58)
[2016-12-09] MEDS: hydrALAZINE 25 MG TABLET PO SCH ×2 (09:58→22:07)
[2016-12-09] MEDS: FERROUS SULFATE 325 MG TABLET PO SCH (09:58)
[2016-12-09] MEDS: CALCIUM (CARBONATE) 600 MG TABLET PO SCH (09:59)
[2016-12-09] MEDS: PANTOPRAZOLE 40 MG VIAL IV SCH ×2 (10:02→22:07)
[2016-12-09] MEDS: CARVEDILOL 6.25 MG TABLET PO SCH ×2 (10:39→17:21)
[2016-12-09] MEDS ORDERED: POLYETHYLENE GLYCOL POWDER 255 GM BOTTLE PO ONE (11:00)
[2016-12-09] MEDS ORDERED: INSULIN REGULAR 100 UNIT/ML IV ONE (20:00)
[2016-12-09] MEDS: INSULIN GLARGINE 100 UNIT/ML SUBCUT SCH (22:01)
[2016-12-09] MEDS: ATORVASTATIN 40 MG TABLET PO SCH (22:07)
[2016-12-09] MEDS: MONTELUKAST 10 MG TABLET PO SCH (22:07)
[2016-12-10 05:31] LABS: Basophils % 0.2 % (0.0-0.8); Eosinophils % 0.2 % (0.00-10.9); Hematocrit 30.1 VOL% (35.7-47.0); Hemoglobin 9.7 GM/DL (12.0-16.0); Immature Granulocytes % 0.9 %; Lymphocytes # 2.1 10*3/uL (1.4-4.0); Lymphocytes % 19.4 % (21.3-54.2); Mean Corpuscular HGB Conc 32.2 GM/DL (32-36); Mean Corpuscular Hemoglobin 27 PG (27-34); Mean Corpuscular Volume 82.7 FL (87-102); Mean Platelet Volume 10.5 FL (9.6-12.0); Monocytes # 0.5 10*3/uL (0.11-0.8); Monocytes % 4.5 % (1.7-12.7); Neutrophils # 8.2 10*3/uL (1.4-7.4); Neutrophils % 74.8 % (38.7-73.9); Platelet Count 319 T/CUMM (130-400); Red Blood Count 3.64 MC/CUMM (3.8-5.5); Red Cell Distribution Width 17.3 % (9.3-17.3); White Blood Count 10.9 T/CUMM (4-12)
[2016-12-10 05:57] LABS: Calcium 8.6 MG/DL (8.5-10.1); Potassium 4.8 MMOL/L (3.5-5.1)
[2016-12-10 05:59] LABS: Hypochromasia 1+; Lymphocytes 27 % (20-55); Ovalocytes Slight; Platelet Estimate Adequate; Segmented Neutrophils 70 % (50-85); Total Cells Counted 100
[2016-12-10 06:00] LABS: Microcytosis Slight
[2016-12-10] MEDS: INSULIN LISPRO 100 UNIT/ML SUBCUT SCH ×4 (08:44→20:54)
[2016-12-10] MEDS: FERROUS SULFATE 325 MG TABLET PO SCH (10:02)
[2016-12-10] MEDS: ASCORBIC ACID 500 MG TABLET PO SCH (10:02)
[2016-12-10] MEDS: ALLOPURINOL 300 MG TABLET PO SCH (10:02)
[2016-12-10] MEDS: LEVOTHYROXINE 50 MCG TABLET PO SCH (10:02)
[2016-12-10] MEDS: CALCIUM (CARBONATE) 600 MG TABLET PO SCH (10:02)
[2016-12-10] MEDS: DULoxetine 30 MG CAPSULE PO SCH (10:02)
[2016-12-10] MEDS: MULTIVITAMIN (CENTRUM) TABLET PO SCH (10:02)
[2016-12-10] MEDS: ISOSORBIDE MONONITRATE 30 MG TABLET PO SCH (10:03)
[2016-12-10] MEDS: MAGNESIUM OXIDE 400 MG TABLET PO SCH (10:03)
[2016-12-10] MEDS: CARVEDILOL 6.25 MG TABLET PO SCH ×2 (10:03→17:27)
[2016-12-10] MEDS: hydrALAZINE 25 MG TABLET PO SCH ×2 (10:04→20:53)
[2016-12-10] MEDS: PANTOPRAZOLE 40 MG VIAL IV SCH ×2 (10:04→20:52)
[2016-12-10] MEDS: predniSONE 5 MG TABLET PO SCH ×2 (10:04→20:52)
[2016-12-10] MEDS: LOSARTAN 25 MG TABLET PO SCH (10:04)
[2016-12-10] MEDS: ZINC OXIDE PASTE 113 GM TUBE TOP SCH ×2 (10:08→20:54)
[2016-12-10] MEDS: LEVOFLOXACIN INJ 250 MG in PREMIX 1 EACH IV SCH (10:08)
[2016-12-10] MEDS ORDERED: LIDOCAINE 2% 5 ML VIAL ONE (12:23)
[2016-12-10] MEDS ORDERED: ETOMIDATE 20 MG/10 ML VIAL IV ONE (12:23)
[2016-12-10] MEDS ORDERED: SODIUM CHLORIDE 0.45% 1,000 ML IV SCH (16:00)
[2016-12-10] MEDS: ATORVASTATIN 40 MG TABLET PO SCH (20:52)
[2016-12-10] MEDS: AMITRIPTYLINE 25 MG TABLET PO PRN (20:52)
[2016-12-10] MEDS: MONTELUKAST 10 MG TABLET PO SCH (20:52)
[2016-12-10] MEDS: INSULIN GLARGINE 100 UNIT/ML SUBCUT SCH (20:53)
[2016-12-11 06:55] LABS: Bilirubin,Total 0.8 MG/DL (0.2-1.0); Magnesium 4.2 MG/DL (1.8-2.4); Osmolality,Calculated 297.8 MOS/KG (273-304); Potassium 5.4 MMOL/L (3.5-5.1); Total Protein 5.5 G/DL (6.4-8.3)
[2016-12-11 06:57] LABS: Basophils % 0.1 % (0.0-0.8); Eosinophils % 0.1 % (0.00-10.9); Hematocrit 31.8 VOL% (35.7-47.0); Hemoglobin 9.8 GM/DL (12.0-16.0); Immature Granulocytes % 1.4 %; Immature Granulocytes Absolute 0.12 #; Lymphocytes % 23.7 % (21.3-54.2); Mean Corpuscular HGB Conc 30.8 GM/DL (32-36); Mean Corpuscular Hemoglobin 27 PG (27-34); Mean Corpuscular Volume 87.4 FL (87-102); Mean Platelet Volume 11.3 FL (9.6-12.0); Monocytes # 0.5 10*3/uL (0.11-0.8); Monocytes % 5.6 % (1.7-12.7); Neutrophils # 5.8 10*3/uL (1.4-7.4); Neutrophils % 69.1 % (38.7-73.9); Platelet Count 253 T/CUMM (130-400); Red Blood Count 3.64 MC/CUMM (3.8-5.5); White Blood Count 8.4 T/CUMM (4-12)
[2016-12-11] MEDS: INSULIN LISPRO 100 UNIT/ML SUBCUT SCH ×4 (08:45→20:35)
[2016-12-11] MEDS ORDERED: DEXTROSE 50% 25 GM/50 ML VIAL IV PRN (09:26)
[2016-12-11] MEDS ORDERED: GLUCAGON 1 MG VIAL IM PRN (09:26)
[2016-12-11] MEDS ORDERED: hydrALAZINE 10 MG TABLET ONE (10:04)
[2016-12-11] MEDS: LOSARTAN 25 MG TABLET PO SCH (10:37)
[2016-12-11] MEDS: LEVOTHYROXINE 50 MCG TABLET PO SCH (10:37)
[2016-12-11] MEDS: CARVEDILOL 6.25 MG TABLET PO SCH ×2 (10:37→17:07)
[2016-12-11] MEDS: ALLOPURINOL 300 MG TABLET PO SCH (10:37)
[2016-12-11] MEDS: MULTIVITAMIN (CENTRUM) TABLET PO SCH (10:38)
[2016-12-11] MEDS: predniSONE 5 MG TABLET PO SCH ×2 (10:38→20:35)
[2016-12-11] MEDS: DULoxetine 30 MG CAPSULE PO SCH (10:38)
[2016-12-11] MEDS: CALCIUM (CARBONATE) 600 MG TABLET PO SCH (10:38)
[2016-12-11] MEDS: ZINC OXIDE PASTE 113 GM TUBE TOP SCH ×2 (10:38→20:35)
[2016-12-11] MEDS: hydrALAZINE 25 MG TABLET PO SCH ×2 (10:38→20:35)
[2016-12-11] MEDS: FERROUS SULFATE 325 MG TABLET PO SCH (10:38)
[2016-12-11] MEDS: ASCORBIC ACID 500 MG TABLET PO SCH (10:38)
[2016-12-11] MEDS: MAGNESIUM OXIDE 400 MG TABLET PO SCH (10:39)
[2016-12-11] MEDS: ISOSORBIDE MONONITRATE 30 MG TABLET PO SCH (10:39)
[2016-12-11] MEDS: NYSTATIN 500,000 UNIT/5 ML UDCUP SWISH/SWAL SCH ×4 (10:48→20:34)
[2016-12-11] MEDS: PANTOPRAZOLE 40 MG VIAL IV SCH ×2 (10:49→20:10)
[2016-12-11] MEDS: ACETAMINOPHEN 325 MG TABLET PO PRN (16:17)
[2016-12-11] MEDS: MONTELUKAST 10 MG TABLET PO SCH (20:35)
[2016-12-11] MEDS: ATORVASTATIN 40 MG TABLET PO SCH (20:35)
[2016-12-11] MEDS: AMITRIPTYLINE 25 MG TABLET PO PRN (20:35)
[2016-12-11] MEDS: INSULIN GLARGINE 100 UNIT/ML SUBCUT SCH (20:36)
[2016-12-12] MEDS: LEVOTHYROXINE 50 MCG TABLET PO SCH (07:09)
[2016-12-12 07:57] LABS: Calcium 7.7 MG/DL (8.5-10.1); Magnesium 3.5 MG/DL (1.8-2.4); Osmolality,Calculated 289.1 MOS/KG (273-304); Potassium 5.9 MMOL/L (3.5-5.1)
[2016-12-12 07:58] VITALS: BP 156/68
[2016-12-12] MEDS: MULTIVITAMIN (CENTRUM) TABLET PO SCH (08:36)
[2016-12-12] MEDS: INSULIN LISPRO 100 UNIT/ML SUBCUT SCH (08:36)
[2016-12-12] MEDS: CARVEDILOL 6.25 MG TABLET PO SCH (08:36)
[2016-12-12] MEDS: DULoxetine 30 MG CAPSULE PO SCH (08:36)
[2016-12-12] MEDS: ISOSORBIDE MONONITRATE 30 MG TABLET PO SCH (08:37)
[2016-12-12] MEDS: predniSONE 5 MG TABLET PO SCH (08:37)
[2016-12-12] MEDS: ALLOPURINOL 300 MG TABLET PO SCH (08:37)
[2016-12-12] MEDS: CALCIUM (CARBONATE) 600 MG TABLET PO SCH (08:37)
[2016-12-12] MEDS: MAGNESIUM OXIDE 400 MG TABLET PO SCH (08:37)
[2016-12-12] MEDS: ASCORBIC ACID 500 MG TABLET PO SCH (08:37)
[2016-12-12] MEDS: FERROUS SULFATE 325 MG TABLET PO SCH (08:37)
[2016-12-12] MEDS: LOSARTAN 25 MG TABLET PO SCH (08:38)
[2016-12-12] MEDS: NYSTATIN 500,000 UNIT/5 ML UDCUP SWISH/SWAL SCH (08:38)
[2016-12-12] MEDS: hydrALAZINE 25 MG TABLET PO SCH (08:38)
[2016-12-12] MEDS: PANTOPRAZOLE 40 MG VIAL IV SCH (08:41)
[2016-12-12] MEDS: ZINC OXIDE PASTE 113 GM TUBE TOP SCH (08:42)
== END 2016-12-12 11:00 | DRG 872 ==
LOC: EDUNIT# → EDBD → N.ED 22:13 → N.EDINP 12-05 01:53 → SUATTDRO 12-05 01:53 → N.2E 12-05 02:46
PROVIDERS: ADMIT Internal Medicine; ATTEND Internal Medicine

== ENCOUNTER 2017-01-27 14:27 | Inpatient (IN) ==
[2017-01-27 16:15] LABS: Basophils % 0.1 % (0.0-0.8); Eosinophils % 0.2 % (0.00-10.9); Hematocrit 21.8 VOL% (35.7-47.0); Hemoglobin 6.9 GM/DL (12.0-16.0); Lymphocytes # 1.6 10*3/uL (1.4-4.0); Lymphocytes % 15.8 % (21.3-54.2); Mean Corpuscular HGB Conc 31.7 GM/DL (32-36); Mean Corpuscular Hemoglobin 29 PG (27-34); Mean Corpuscular Volume 92.8 FL (87-102); Mean Platelet Volume 11.2 FL (9.6-12.0); Monocytes # 0.7 10*3/uL (0.11-0.8); Monocytes % 6.9 % (1.7-12.7); Neutrophils # 7.6 10*3/uL (1.4-7.4); Platelet Count 291 T/CUMM (130-400); Red Blood Count 2.35 MC/CUMM (3.8-5.5); Red Cell Distribution Width 22.7 % (9.3-17.3)
[2017-01-27] MEDS ORDERED: SODIUM CHLORIDE 0.9% 1,000 ML IV PRN (16:24)
[2017-01-27] MEDS: SODIUM CHLORIDE 0.9% 1,000 ML IV SCH (17:36)
[2017-01-27] MEDS: AMITRIPTYLINE 25 MG TABLET PO PRN (21:41)
[2017-01-28] MEDS: SODIUM CHLORIDE 0.9% 1,000 ML IV SCH ×2 (03:38→16:11)
[2017-01-28] MEDS: PANTOPRAZOLE 40 MG VIAL IV SCH (10:02)
[2017-01-28 11:49] LABS: Hematocrit 29.6 VOL% (35.7-47.0); Hemoglobin 9.6 GM/DL (12.0-16.0)
[2017-01-28 11:54] LABS: PT Patient Result 10.6 SECS
[2017-01-28] MEDS ORDERED: GLUCAGON 1 MG VIAL IM PRN (12:06)
[2017-01-28 12:24] LABS: Calcium 8.2 MG/DL (8.5-10.1); Osmolality,Calculated 299.3 MOS/KG (273-304)
[2017-01-28] MEDS ORDERED: MAGNESIUM HYDROXIDE SUSP 30 ML UDCUP PO PRN (12:30)
[2017-01-28] MEDS: INSULIN LISPRO 100 UNIT/ML SUBCUT SCH ×2 (16:04→23:28)
[2017-01-28] MEDS: ACETAMINOPHEN 325 MG TABLET PO PRN ×2 (17:25→23:25)
[2017-01-28 18:00] LABS: Apearance,Urine Slightly Hazy (Clear); Bilirubin,Urine Negative (Negative); Blood, Urine Moderate mg/dL (Negative); Glucose,Urine (UA) Negative (Negative); Ketones,Urine Negative (Negative); Nitrite,Urine Negative (Negative); Protein,Urine Negative; RBC,Urine 5 /HPF (0-4); Squamous Epithelial Cell,Urine Occasional /HPF (0-10); Urine Color Yellow (Yellow); Urine Specific Gravity 1.008 (1.001-1.035); Urine Urobilinogen < 2.0 EU/DL (0.2-1.0); WBC,Urine 1 /HPF (0-6)
[2017-01-28 19:27] LABS: Hematocrit 30.3 VOL% (35.7-47.0); Hemoglobin 10.2 GM/DL (12.0-16.0)
[2017-01-28] MEDS: predniSONE 5 MG TABLET PO SCH (23:25)
[2017-01-28] MEDS: AMITRIPTYLINE 25 MG TABLET PO PRN (23:27)
[2017-01-28] MEDS: MONTELUKAST 10 MG TABLET PO SCH (23:27)
[2017-01-28] MEDS: hydrALAZINE 25 MG TABLET PO SCH (23:28)
[2017-01-28] MEDS: POTASSIUM CHLORIDE 20 MEQ TABLET PO SCH (23:28)
[2017-01-28] MEDS: CARVEDILOL 6.25 MG TABLET PO SCH (23:28)
[2017-01-28] MEDS: ATORVASTATIN 40 MG TABLET PO SCH (23:28)
[2017-01-29] MEDS ORDERED: AMIODARONE INJ 450 MG in DEXTROSE 5% 241 ML IV SCH ×2 (06:43→08:00)
[2017-01-29] MEDS ORDERED: AMIODARONE 450 MG/9 ML VIAL IV ONE ×2 (06:47→06:49)
[2017-01-29] MEDS: INSULIN LISPRO 100 UNIT/ML SUBCUT SCH ×4 (07:30→22:46)
[2017-01-29 07:44] LABS: Basophils % 0.3 % (0.0-0.8); Eosinophils % 0.1 % (0.00-10.9); Hematocrit 33.3 VOL% (35.7-47.0); Hemoglobin 10.7 GM/DL (12.0-16.0); Immature Granulocytes % 0.8 %; Immature Granulocytes Absolute 0.08 #; Lymphocytes # 2.3 10*3/uL (1.4-4.0); Lymphocytes % 23.1 % (21.3-54.2); Mean Corpuscular HGB Conc 32.1 GM/DL (32-36); Mean Corpuscular Hemoglobin 30 PG (27-34); Mean Platelet Volume 10.6 FL (9.6-12.0); Monocytes # 0.7 10*3/uL (0.11-0.8); Monocytes % 6.6 % (1.7-12.7); Neutrophils # 6.8 10*3/uL (1.4-7.4); Neutrophils % 69.1 % (38.7-73.9); Platelet Count 243 T/CUMM (130-400); Red Blood Count 3.62 MC/CUMM (3.8-5.5); Red Cell Distribution Width 19.6 % (9.3-17.3); White Blood Count 9.8 T/CUMM (4-12)
[2017-01-29 07:50] LABS: INR 1.1; PT Patient Result 11.1 SECS
[2017-01-29] MEDS: LEVOTHYROXINE 50 MCG TABLET PO SCH (07:51)
[2017-01-29] MEDS: PANTOPRAZOLE 40 MG TABLET PO SCH (07:51)
[2017-01-29 08:14] LABS: Band Neutrophils 4 % (0-10); Lymphocytes 16 % (20-55); Platelet Estimate Adequate; Segmented Neutrophils 74 % (50-85); Total Cells Counted 100
[2017-01-29 08:15] LABS: Burr Cells Slight; Calcium 8.4 MG/DL (8.5-10.1); Hypochromasia 1+; Microcytosis Slight; Osmolality,Calculated 293.3 MOS/KG (273-304); Ovalocytes Slight; Potassium 4.3 MMOL/L (3.5-5.1)
[2017-01-29] MEDS ORDERED: Lutein [Lutein] 20 MG PO SCH (09:00)
[2017-01-29] MEDS ORDERED: ISOSORBIDE MONONITRATE 30 MG TABLET PO SCH (09:00)
[2017-01-29] MEDS ORDERED: LOSARTAN 25 MG TABLET PO SCH (09:00)
[2017-01-29] MEDS ORDERED: MAGNESIUM SULF RIDER 4 GM in PREMIX 1 EACH IV ONE (09:30)
[2017-01-29] MEDS: FERROUS SULFATE 325 MG TABLET PO SCH (11:10)
[2017-01-29] MEDS: DULoxetine 30 MG CAPSULE PO SCH (11:10)
[2017-01-29] MEDS: MULTIVITAMIN (CENTRUM) TABLET PO SCH (11:11)
[2017-01-29] MEDS: ASCORBIC ACID 500 MG TABLET PO SCH (11:11)
[2017-01-29] MEDS: CALCIUM (CARBONATE) 600 MG TABLET PO SCH (11:11)
[2017-01-29] MEDS: MAGNESIUM OXIDE 400 MG TABLET PO SCH (11:12)
[2017-01-29] MEDS: hydrALAZINE 25 MG TABLET PO SCH ×2 (11:12→22:22)
[2017-01-29] MEDS: ALLOPURINOL 300 MG TABLET PO SCH (11:13)
[2017-01-29] MEDS: FUROSEMIDE 80 MG TABLET PO SCH (11:14)
[2017-01-29] MEDS: LOPERAMIDE 2 MG CAPSULE PO PRN (11:14)
[2017-01-29] MEDS: POLYETHYLENE GLYCOL POWDER 17 GM PACK PO SCH (11:15)
[2017-01-29] MEDS: predniSONE 5 MG TABLET PO SCH ×2 (11:15→22:22)
[2017-01-29] MEDS: POTASSIUM CHLORIDE 20 MEQ TABLET PO SCH ×2 (11:15→22:22)
[2017-01-29] MEDS: CARVEDILOL 6.25 MG TABLET PO SCH ×2 (11:16→22:22)
[2017-01-29] MEDS: PANTOPRAZOLE 40 MG VIAL IV SCH (11:17)
[2017-01-29] MEDS ORDERED: MAGNESIUM SULF RIDER 4 GM in PREMIX 1 EACH IV PRN (11:47)
[2017-01-29] MEDS ORDERED: MAGNESIUM SULF RIDER 2 GM in PREMIX 1 EACH IV PRN (11:47)
[2017-01-29] MEDS ORDERED: SODIUM PHOSPHATE ENEMA 133 ML BOTTLE RECTAL ONE (12:00)
[2017-01-29 12:27] LABS: Free T4 (Free Thyroxine) 1.06 NG/DL (0.76-1.46); Thyroid Stimulating Hormone 1.46 uIU/ml (0.358-3.74)
[2017-01-29] MEDS: AMIODARONE INJ 450 MG in DEXTROSE 5% 241 ML IV SCH (14:43)
[2017-01-29] MEDS: SODIUM CHLORIDE 0.9% 1,000 ML IV SCH (18:17)
[2017-01-29] MEDS: PIPERACILLIN/TAZOBACTAM 3,375 MG in SODIUM CHLORIDE 0.9% 100 ML IV SCH (19:00)
[2017-01-29] MEDS: DESITIN 4OZ/NYSTATIN 15 GRAM MIXTURE PASTE TOP SCH (19:13)
[2017-01-29] MEDS ORDERED: SKIN HEALING OINT (AQUAPHOR) 50 GM TUBE TOP PRN (19:35)
[2017-01-29] MEDS: MONTELUKAST 10 MG TABLET PO SCH (22:22)
[2017-01-29] MEDS: ATORVASTATIN 40 MG TABLET PO SCH (22:22)
[2017-01-30] MEDS: PIPERACILLIN/TAZOBACTAM 3,375 MG in SODIUM CHLORIDE 0.9% 100 ML IV SCH ×3 (00:11→18:59)
[2017-01-30] MEDS: DESITIN 4OZ/NYSTATIN 15 GRAM MIXTURE PASTE TOP SCH ×3 (00:12→23:28)
[2017-01-30 03:39] LABS: Basophils % 0.2 % (0.0-0.8); Eosinophils % 0.2 % (0.00-10.9); Hematocrit 29.1 VOL% (35.7-47.0); Hemoglobin 9.1 GM/DL (12.0-16.0); Immature Granulocytes % 0.7 %; Immature Granulocytes Absolute 0.06 #; Lymphocytes # 1.7 10*3/uL (1.4-4.0); Lymphocytes % 20.5 % (21.3-54.2); Mean Corpuscular HGB Conc 31.3 GM/DL (32-36); Mean Corpuscular Hemoglobin 29 PG (27-34); Mean Corpuscular Volume 93.6 FL (87-102); Mean Platelet Volume 10.4 FL (9.6-12.0); Monocytes # 0.7 10*3/uL (0.11-0.8); Monocytes % 7.7 % (1.7-12.7); Neutrophils # 5.9 10*3/uL (1.4-7.4); Neutrophils % 70.7 % (38.7-73.9); Platelet Count 224 T/CUMM (130-400); Red Blood Count 3.11 MC/CUMM (3.8-5.5); Red Cell Distribution Width 19.6 % (9.3-17.3); White Blood Count 8.4 T/CUMM (4-12)
[2017-01-30 03:49] LABS: PT Patient Result 10.3 SECS
[2017-01-30 04:17] LABS: Potassium 4.4 MMOL/L (3.5-5.1)
[2017-01-30 05:22] LABS: Band Neutrophils 1 % (0-10); Burr Cells Slight; Giant Platelets Few; Hypochromasia 1+; Lymphocytes 20 % (20-55); Ovalocytes Slight; Platelet Estimate Adequate; Segmented Neutrophils 74 % (50-85); Total Cells Counted 100
[2017-01-30 05:23] LABS: Microcytosis Slight
[2017-01-30] MEDS: AMIODARONE INJ 450 MG in DEXTROSE 5% 241 ML IV SCH ×2 (05:36→23:28)
[2017-01-30] MEDS: PANTOPRAZOLE 40 MG TABLET PO SCH (05:43)
[2017-01-30] MEDS: LEVOTHYROXINE 50 MCG TABLET PO SCH (05:44)
[2017-01-30] MEDS ORDERED: ZINC OXIDE PASTE 113 GM TUBE TOP PRN (07:08)
[2017-01-30] MEDS: INSULIN LISPRO 100 UNIT/ML SUBCUT SCH ×4 (11:14→21:05)
[2017-01-30] MEDS: PANTOPRAZOLE 40 MG VIAL IV SCH (11:19)
[2017-01-30] MEDS: DULoxetine 30 MG CAPSULE PO SCH ×2 (11:25→12:11)
[2017-01-30] MEDS: CARVEDILOL 6.25 MG TABLET PO SCH ×3 (11:26→21:08)
[2017-01-30] MEDS: MAGNESIUM OXIDE 400 MG TABLET PO SCH ×2 (11:26→12:11)
[2017-01-30] MEDS: predniSONE 5 MG TABLET PO SCH ×3 (11:27→21:08)
[2017-01-30] MEDS: MULTIVITAMIN (CENTRUM) TABLET PO SCH ×2 (11:27→12:10)
[2017-01-30] MEDS: ALLOPURINOL 300 MG TABLET PO SCH ×2 (11:27→12:12)
[2017-01-30] MEDS: CALCIUM (CARBONATE) 600 MG TABLET PO SCH ×2 (11:27→12:10)
[2017-01-30] MEDS: FERROUS SULFATE 325 MG TABLET PO SCH ×2 (11:27→12:11)
[2017-01-30] MEDS: POTASSIUM CHLORIDE 20 MEQ TABLET PO SCH ×3 (11:27→21:08)
[2017-01-30] MEDS: POLYETHYLENE GLYCOL POWDER 17 GM PACK PO SCH ×2 (11:27→12:11)
[2017-01-30] MEDS: FUROSEMIDE 80 MG TABLET PO SCH ×2 (11:28→12:11)
[2017-01-30] MEDS: ASCORBIC ACID 500 MG TABLET PO SCH ×2 (11:28→12:11)
[2017-01-30] MEDS: ZINC OXIDE 16% PASTE 57 GM TUBE TOP PRN (11:28)
[2017-01-30] MEDS ORDERED: SODIUM PHOSPHATE ENEMA 133 ML BOTTLE RECTAL SCH (12:00)
[2017-01-30] MEDS: SODIUM CHLORIDE 0.9% 1,000 ML IV SCH ×2 (14:49→23:27)
[2017-01-30] MEDS: AMIODARONE 200 MG TABLET PO SCH (16:45)
[2017-01-30] MEDS ORDERED: FUROSEMIDE 40 MG/4 ML VIAL IV ONE (20:40)
[2017-01-30] MEDS: AMITRIPTYLINE 25 MG TABLET PO PRN (21:08)
[2017-01-30] MEDS: ATORVASTATIN 40 MG TABLET PO SCH (21:08)
[2017-01-30] MEDS: ALBUTEROL/IPRATROPIUM 3 ML NEB RESP TX PRN (21:08)
[2017-01-30] MEDS: MONTELUKAST 10 MG TABLET PO SCH (21:09)
[2017-01-30] MEDS: PROTEASE PO SCH ×2 (23:26→23:29)
[2017-01-30] MEDS: LIPASE PO SCH ×2 (23:26→23:29)
[2017-01-30] MEDS: AMYLASE PO SCH ×2 (23:26→23:29)
[2017-01-31 03:07] LABS: Basophils % 0.3 % (0.0-0.8); Eosinophils % 0.3 % (0.00-10.9); Hemoglobin 9.5 GM/DL (12.0-16.0); Immature Granulocytes % 0.7 %; Immature Granulocytes Absolute 0.07 #; Lymphocytes # 1.4 10*3/uL (1.4-4.0); Lymphocytes % 13.4 % (21.3-54.2); Mean Corpuscular HGB Conc 31.7 GM/DL (32-36); Mean Corpuscular Hemoglobin 29 PG (27-34); Mean Corpuscular Volume 91.5 FL (87-102); Mean Platelet Volume 10.1 FL (9.6-12.0); Monocytes # 0.5 10*3/uL (0.11-0.8); Monocytes % 4.9 % (1.7-12.7); Neutrophils # 8.3 10*3/uL (1.4-7.4); Neutrophils % 80.4 % (38.7-73.9); Platelet Count 240 T/CUMM (130-400); Red Blood Count 3.28 MC/CUMM (3.8-5.5); Red Cell Distribution Width 19.7 % (9.3-17.3); White Blood Count 10.3 T/CUMM (4-12)
[2017-01-31 03:43] LABS: Calcium 8.1 MG/DL (8.5-10.1); Osmolality,Calculated 283.1 MOS/KG (273-304); Potassium 5.6 MMOL/L (3.5-5.1)
[2017-01-31 04:50] LABS: Band Neutrophils 3 % (0-10); Lymphocytes 10 % (20-55); Platelet Estimate Normal; Segmented Neutrophils 85 % (50-85); Total Cells Counted 100
[2017-01-31] MEDS: SODIUM CHLORIDE 0.9% 1,000 ML IV SCH (04:53)
[2017-01-31] MEDS: LEVOTHYROXINE 50 MCG TABLET PO SCH (05:21)
[2017-01-31] MEDS: PANTOPRAZOLE 40 MG TABLET PO SCH (05:21)
[2017-01-31] MEDS: PIPERACILLIN/TAZOBACTAM 3,375 MG in SODIUM CHLORIDE 0.9% 100 ML IV SCH ×3 (05:22→22:21)
[2017-01-31] MEDS ORDERED: PROPOFOL 200 MG/20 ML VIAL IV ONE (08:50)
[2017-01-31] MEDS ORDERED: LIDOCAINE 100 MG/5 ML SYRINGE ONE (08:50)
[2017-01-31] MEDS: INSULIN LISPRO 100 UNIT/ML SUBCUT SCH ×4 (10:01→21:29)
[2017-01-31] MEDS: MAGNESIUM OXIDE 400 MG TABLET PO SCH (10:02)
[2017-01-31] MEDS: MULTIVITAMIN (CENTRUM) TABLET PO SCH (10:02)
[2017-01-31] MEDS: AMIODARONE 200 MG TABLET PO SCH (10:03)
[2017-01-31] MEDS: CALCIUM (CARBONATE) 600 MG TABLET PO SCH (10:03)
[2017-01-31] MEDS: DULoxetine 30 MG CAPSULE PO SCH (10:03)
[2017-01-31] MEDS: CARVEDILOL 6.25 MG TABLET PO SCH ×2 (10:03→21:28)
[2017-01-31] MEDS: FUROSEMIDE 80 MG TABLET PO SCH (10:03)
[2017-01-31] MEDS: ALLOPURINOL 300 MG TABLET PO SCH (10:04)
[2017-01-31] MEDS: PANTOPRAZOLE 40 MG VIAL IV SCH (10:04)
[2017-01-31] MEDS: ASCORBIC ACID 500 MG TABLET PO SCH (10:04)
[2017-01-31] MEDS: FERROUS SULFATE 325 MG TABLET PO SCH (10:07)
[2017-01-31] MEDS: POLYETHYLENE GLYCOL POWDER 17 GM PACK PO SCH (10:08)
[2017-01-31] MEDS: ZINC OXIDE 16% PASTE 57 GM TUBE TOP PRN ×2 (10:09→21:29)
[2017-01-31] MEDS: DESITIN 4OZ/NYSTATIN 15 GRAM MIXTURE PASTE TOP SCH ×2 (10:11→21:30)
[2017-01-31] MEDS: predniSONE 5 MG TABLET PO SCH ×2 (10:12→21:29)
[2017-01-31] MEDS: AMIODARONE INJ 450 MG in DEXTROSE 5% 241 ML IV SCH (14:16)
[2017-01-31] MEDS ORDERED: LINEZOLID INJ 600 MG in PREMIX 1 EACH IV SCH (16:00)
[2017-01-31] MEDS: AMITRIPTYLINE 25 MG TABLET PO PRN (21:28)
[2017-01-31] MEDS: ATORVASTATIN 40 MG TABLET PO SCH (21:28)
[2017-01-31] MEDS: MONTELUKAST 10 MG TABLET PO SCH (21:29)
[2017-02-01] MEDS: LEVOTHYROXINE 50 MCG TABLET PO SCH (06:05)
[2017-02-01] MEDS: PIPERACILLIN/TAZOBACTAM 3,375 MG in SODIUM CHLORIDE 0.9% 100 ML IV SCH ×3 (06:05→21:50)
[2017-02-01] MEDS: PANTOPRAZOLE 40 MG TABLET PO SCH (06:05)
[2017-02-01 07:08] LABS: Basophils % 0.2 % (0.0-0.8); Hematocrit 28.9 VOL% (35.7-47.0); Hemoglobin 9.6 GM/DL (12.0-16.0); Immature Granulocytes % 0.6 %; Immature Granulocytes Absolute 0.06 #; Lymphocytes # 1.5 10*3/uL (1.4-4.0); Lymphocytes % 13.9 % (21.3-54.2); Mean Corpuscular HGB Conc 33.2 GM/DL (32-36); Mean Corpuscular Hemoglobin 30 PG (27-34); Mean Corpuscular Volume 89.2 FL (87-102); Mean Platelet Volume 10.3 FL (9.6-12.0); Monocytes # 0.5 10*3/uL (0.11-0.8); Monocytes % 4.6 % (1.7-12.7); Neutrophils # 8.6 10*3/uL (1.4-7.4); Neutrophils % 80.7 % (38.7-73.9); Platelet Count 231 T/CUMM (130-400); Red Blood Count 3.24 MC/CUMM (3.8-5.5); Red Cell Distribution Width 19.3 % (9.3-17.3); White Blood Count 10.6 T/CUMM (4-12)
[2017-02-01 07:31] LABS: Calcium 7.9 MG/DL (8.5-10.1); Osmolality,Calculated 286.4 MOS/KG (273-304); Osmolality,Calculated 288.2 MOS/KG (273-304); Potassium 5.8 MMOL/L (3.5-5.1); Potassium 5.9 MMOL/L (3.5-5.1)
[2017-02-01 07:35] LABS: Albumin 1.6 G/DL (3.4-5.0); Bilirubin,Total 0.7 MG/DL (0.2-1.0); Calcium 7.9 MG/DL (8.5-10.1); Osmolality,Calculated 286.4 MOS/KG (273-304); Potassium 5.8 MMOL/L (3.5-5.1); Total Protein 4.9 G/DL (6.4-8.3)
[2017-02-01] MEDS: INSULIN LISPRO 100 UNIT/ML SUBCUT SCH ×5 (08:00→21:49)
[2017-02-01] MEDS: AMIODARONE INJ 450 MG in DEXTROSE 5% 241 ML IV SCH (08:12)
[2017-02-01] MEDS: PHENOL 1.4% THROAT SPRAY 177 ML BOTTLE PO PRN (09:51)
[2017-02-01] MEDS: MAGNESIUM OXIDE 400 MG TABLET PO SCH (09:53)
[2017-02-01] MEDS: MULTIVITAMIN (CENTRUM) TABLET PO SCH (09:53)
[2017-02-01] MEDS: FERROUS SULFATE 325 MG TABLET PO SCH (09:53)
[2017-02-01] MEDS: ASCORBIC ACID 500 MG TABLET PO SCH (09:53)
[2017-02-01] MEDS: DULoxetine 30 MG CAPSULE PO SCH (09:53)
[2017-02-01] MEDS: predniSONE 5 MG TABLET PO SCH ×2 (09:54→21:49)
[2017-02-01] MEDS: AMIODARONE 200 MG TABLET PO SCH (09:54)
[2017-02-01] MEDS: FUROSEMIDE 80 MG TABLET PO SCH (09:54)
[2017-02-01] MEDS: CALCIUM (CARBONATE) 600 MG TABLET PO SCH (09:54)
[2017-02-01] MEDS: CARVEDILOL 6.25 MG TABLET PO SCH ×2 (09:54→21:49)
[2017-02-01] MEDS: POLYETHYLENE GLYCOL POWDER 17 GM PACK PO SCH (09:55)
[2017-02-01] MEDS: PANTOPRAZOLE 40 MG VIAL IV SCH (09:55)
[2017-02-01] MEDS: ALLOPURINOL 300 MG TABLET PO SCH (09:55)
[2017-02-01] MEDS: DESITIN 4OZ/NYSTATIN 15 GRAM MIXTURE PASTE TOP SCH ×2 (10:04→21:50)
[2017-02-01 11:57] LABS: Burr Cells 1+; Hypochromasia 1+; Target Cells Slight
[2017-02-01] MEDS: ALBUTEROL/IPRATROPIUM 3 ML NEB RESP TX PRN (17:00)
[2017-02-01] MEDS: ATORVASTATIN 40 MG TABLET PO SCH (21:49)
[2017-02-01] MEDS: AMITRIPTYLINE 25 MG TABLET PO PRN (21:49)
[2017-02-01] MEDS: MONTELUKAST 10 MG TABLET PO SCH (21:49)
[2017-02-02 03:21] LABS: Basophils % 0.2 % (0.0-0.8); Eosinophils % 0.1 % (0.00-10.9); Hematocrit 28.2 VOL% (35.7-47.0); Hemoglobin 9.3 GM/DL (12.0-16.0); Immature Granulocytes % 0.7 %; Immature Granulocytes Absolute 0.07 #; Lymphocytes # 1.3 10*3/uL (1.4-4.0); Lymphocytes % 12.9 % (21.3-54.2); Mean Corpuscular Hemoglobin 29 PG (27-34); Mean Corpuscular Volume 88.4 FL (87-102); Mean Platelet Volume 10.6 FL (9.6-12.0); Monocytes # 0.5 10*3/uL (0.11-0.8); Monocytes % 4.9 % (1.7-12.7); Neutrophils # 7.8 10*3/uL (1.4-7.4); Neutrophils % 81.2 % (38.7-73.9); Platelet Count 219 T/CUMM (130-400); Red Blood Count 3.19 MC/CUMM (3.8-5.5); Red Cell Distribution Width 19.3 % (9.3-17.3); White Blood Count 9.7 T/CUMM (4-12)
[2017-02-02 03:55] LABS: Osmolality,Calculated 286.5 MOS/KG (273-304)
[2017-02-02 04:15] LABS: Potassium 6.3 MMOL/L (3.5-5.1)
[2017-02-02] MEDS ORDERED: SODIUM POLYSTYRENE SULFATE 15 GM/60 ML BOTTLE PO ONE (04:23)
[2017-02-02] MEDS ORDERED: DEXTROSE 50% 25 GM/50 ML VIAL IV ONE (04:25)
[2017-02-02 04:26] LABS: Band Neutrophils 8 % (0-10); Lymphocytes 10 % (20-55); Segmented Neutrophils 78 % (50-85); Total Cells Counted 100
[2017-02-02 04:27] LABS: Platelet Estimate Normal
[2017-02-02] MEDS ORDERED: INSULIN REGULAR 100 UNIT/ML IV ONE (05:00)
[2017-02-02] MEDS ORDERED: SODIUM BICARBONATE 50 MEQ/50 ML SYRINGE IV ONE (05:00)
[2017-02-02] MEDS: PIPERACILLIN/TAZOBACTAM 3,375 MG in SODIUM CHLORIDE 0.9% 100 ML IV SCH ×3 (05:03→22:04)
[2017-02-02] MEDS: LEVOTHYROXINE 50 MCG TABLET PO SCH (05:04)
[2017-02-02] MEDS: PANTOPRAZOLE 40 MG TABLET PO SCH (05:04)
[2017-02-02] MEDS ORDERED: SODIUM POLYSTYRENE SULFATE 15 GM/60 ML BOTTLE PO PRN (07:56)
[2017-02-02] MEDS ORDERED: SODIUM BICARB INJ 50 MEQ in SODIUM CHLORIDE 0.45% 1,000 ML IV SCH (08:00)
[2017-02-02] MEDS: INSULIN LISPRO 100 UNIT/ML SUBCUT SCH ×4 (09:41→22:27)
[2017-02-02] MEDS: CALCIUM (CARBONATE) 600 MG TABLET PO SCH (09:44)
[2017-02-02] MEDS: ALLOPURINOL 300 MG TABLET PO SCH (09:45)
[2017-02-02] MEDS: SODIUM BICARBONATE 650 MG TABLET PO SCH ×3 (09:47→22:03)
[2017-02-02] MEDS: CARVEDILOL 6.25 MG TABLET PO SCH ×2 (09:50→22:03)
[2017-02-02] MEDS: ASCORBIC ACID 500 MG TABLET PO SCH (09:50)
[2017-02-02] MEDS: DULoxetine 30 MG CAPSULE PO SCH (09:50)
[2017-02-02] MEDS: FERROUS SULFATE 325 MG TABLET PO SCH (09:51)
[2017-02-02] MEDS: MULTIVITAMIN (CENTRUM) TABLET PO SCH (09:51)
[2017-02-02] MEDS: AMIODARONE 200 MG TABLET PO SCH (09:51)
[2017-02-02] MEDS: MAGNESIUM OXIDE 400 MG TABLET PO SCH (09:52)
[2017-02-02] MEDS: POLYETHYLENE GLYCOL POWDER 17 GM PACK PO SCH (09:52)
[2017-02-02] MEDS: predniSONE 5 MG TABLET PO SCH ×2 (09:52→22:03)
[2017-02-02] MEDS: PANTOPRAZOLE 40 MG VIAL IV SCH (09:52)
[2017-02-02] MEDS: DESITIN 4OZ/NYSTATIN 15 GRAM MIXTURE PASTE TOP SCH ×2 (09:53→22:04)
[2017-02-02 13:56] LABS: Hematocrit 30.5 VOL% (35.7-47.0); Hemoglobin 10.2 GM/DL (12.0-16.0)
[2017-02-02] MEDS ORDERED: CALCIUM GLUCONATE 2,000 MG in SODIUM CHLORIDE 0.9% 100 ML IV ONE (20:00)
[2017-02-02] MEDS ORDERED: SODIUM BICARB INJ 100 MEQ in STERILE WATER INJ 1,000 ML IV SCH (20:00)
[2017-02-02] MEDS: FUROSEMIDE 100 MG/10 ML VIAL IV SCH (22:02)
[2017-02-02] MEDS: MONTELUKAST 10 MG TABLET PO SCH (22:03)
[2017-02-02] MEDS: ATORVASTATIN 40 MG TABLET PO SCH (22:03)
[2017-02-03 00:01] LABS: Hematocrit 29.3 VOL% (35.7-47.0); Hemoglobin 9.7 GM/DL (12.0-16.0)
[2017-02-03 01:10] LABS: Hematocrit 29.1 VOL% (35.7-47.0); Hemoglobin 9.6 GM/DL (12.0-16.0)
[2017-02-03] MEDS ORDERED: CALCIUM GLUCONATE 2,000 MG in SODIUM CHLORIDE 0.9% 100 ML IV ONE (03:30)
[2017-02-03 06:05] LABS: Basophils % 0.1 % (0.0-0.8); Eosinophils % 0.1 % (0.00-10.9); Hematocrit 28.3 VOL% (35.7-47.0); Hemoglobin 9.1 GM/DL (12.0-16.0); Immature Granulocytes % 0.6 %; Immature Granulocytes Absolute 0.05 #; Lymphocytes # 1.2 10*3/uL (1.4-4.0); Lymphocytes % 15.1 % (21.3-54.2); Mean Corpuscular HGB Conc 32.2 GM/DL (32-36); Mean Corpuscular Hemoglobin 29 PG (27-34); Mean Corpuscular Volume 90.7 FL (87-102); Mean Platelet Volume 10.5 FL (9.6-12.0); Monocytes # 0.5 10*3/uL (0.11-0.8); Monocytes % 6.1 % (1.7-12.7); Neutrophils # 6.2 10*3/uL (1.4-7.4); Platelet Count 220 T/CUMM (130-400); Red Blood Count 3.12 MC/CUMM (3.8-5.5); Red Cell Distribution Width 19.2 % (9.3-17.3)
[2017-02-03] MEDS: PANTOPRAZOLE 40 MG TABLET PO SCH (06:30)
[2017-02-03] MEDS: LEVOTHYROXINE 50 MCG TABLET PO SCH (06:30)
[2017-02-03 06:40] LABS: Albumin 1.5 G/DL (3.4-5.0); Bilirubin,Total 0.9 MG/DL (0.2-1.0); Calcium 7.8 MG/DL (8.5-10.1); Osmolality,Calculated 288.4 MOS/KG (273-304)
[2017-02-03 07:01] LABS: Potassium 6.3 MMOL/L (3.5-5.1)
[2017-02-03] MEDS: PIPERACILLIN/TAZOBACTAM 3,375 MG in SODIUM CHLORIDE 0.9% 100 ML IV SCH ×3 (07:05→21:50)
[2017-02-03 07:30] LABS: Hematocrit 29.3 VOL% (35.7-47.0); Hemoglobin 9.8 GM/DL (12.0-16.0)
[2017-02-03] MEDS: INSULIN LISPRO 100 UNIT/ML SUBCUT SCH ×5 (07:30→22:12)
[2017-02-03] MEDS: SODIUM BICARB INJ 100 MEQ in STERILE WATER INJ 1,000 ML IV SCH ×2 (09:22→21:56)
[2017-02-03] MEDS: FUROSEMIDE 100 MG/10 ML VIAL IV SCH ×3 (09:23→21:47)
[2017-02-03] MEDS: PANTOPRAZOLE 40 MG VIAL IV SCH (09:27)
[2017-02-03 13:19] LABS: PT Patient Result 10.6 SECS
[2017-02-03 13:36] LABS: Calcium 7.8 MG/DL (8.5-10.1); Osmolality,Calculated 289.4 MOS/KG (273-304); Potassium 5.7 MMOL/L (3.5-5.1)
[2017-02-03 14:43] LABS: Hepatitis A Ab IgM Quant 0.15 Index; Hepatitis A Ab IgM Result Negative (Negative); Hepatitis B Core IgM Quant 0.11 Index; Hepatitis B Core IgM Result Negative (Negative); Hepatitis B Surface Ag Quant < 0.10 Index; Hepatitis B Surface Ag Result Negative (Negative); Hepatitis C Virus Ab Quant 0.17 Index; Hepatitis C Virus Ab Result Negative (Negative)
[2017-02-03] MEDS: DULoxetine 30 MG CAPSULE PO SCH (15:56)
[2017-02-03] MEDS: ALLOPURINOL 300 MG TABLET PO SCH (15:56)
[2017-02-03] MEDS: LOPERAMIDE 2 MG CAPSULE PO PRN (15:56)
[2017-02-03] MEDS: FERROUS SULFATE 325 MG TABLET PO SCH (15:57)
[2017-02-03] MEDS: CALCIUM (CARBONATE) 600 MG TABLET PO SCH (16:18)
[2017-02-03] MEDS: AMIODARONE 200 MG TABLET PO SCH (16:18)
[2017-02-03] MEDS: SODIUM BICARBONATE 650 MG TABLET PO SCH ×3 (16:18→21:47)
[2017-02-03] MEDS: predniSONE 5 MG TABLET PO SCH ×2 (16:20→21:47)
[2017-02-03] MEDS: MAGNESIUM OXIDE 400 MG TABLET PO SCH (16:20)
[2017-02-03] MEDS: MULTIVITAMIN (CENTRUM) TABLET PO SCH (16:20)
[2017-02-03] MEDS: DESITIN 4OZ/NYSTATIN 15 GRAM MIXTURE PASTE TOP SCH ×2 (16:21→21:56)
[2017-02-03] MEDS: ASCORBIC ACID 500 MG TABLET PO SCH (16:21)
[2017-02-03] MEDS: POLYETHYLENE GLYCOL POWDER 17 GM PACK PO SCH (16:22)
[2017-02-03] MEDS: CARVEDILOL 12.5 MG TABLET PO SCH (21:47)
[2017-02-03] MEDS: ATORVASTATIN 40 MG TABLET PO SCH (21:47)
[2017-02-03] MEDS: MONTELUKAST 10 MG TABLET PO SCH (21:47)
[2017-02-04 05:27] LABS: Calcium 7.5 MG/DL (8.5-10.1); Osmolality,Calculated 292.2 MOS/KG (273-304)
[2017-02-04] MEDS: LEVOTHYROXINE 50 MCG TABLET PO SCH (06:09)
[2017-02-04] MEDS: PIPERACILLIN/TAZOBACTAM 3,375 MG in SODIUM CHLORIDE 0.9% 100 ML IV SCH ×2 (06:09→14:24)
[2017-02-04] MEDS: PANTOPRAZOLE 40 MG TABLET PO SCH (06:09)
[2017-02-04 08:28] LABS: Basophils % 0.1 % (0.0-0.8); Hematocrit 27.8 VOL% (35.7-47.0); Hemoglobin 9.1 GM/DL (12.0-16.0); Immature Granulocytes % 0.4 %; Immature Granulocytes Absolute 0.04 #; Lymphocytes # 1.6 10*3/uL (1.4-4.0); Lymphocytes % 16.1 % (21.3-54.2); Mean Corpuscular HGB Conc 32.7 GM/DL (32-36); Mean Corpuscular Hemoglobin 29 PG (27-34); Mean Corpuscular Volume 89.7 FL (87-102); Mean Platelet Volume 10.3 FL (9.6-12.0); Monocytes # 0.5 10*3/uL (0.11-0.8); Monocytes % 5.3 % (1.7-12.7); Neutrophils # 7.5 10*3/uL (1.4-7.4); Neutrophils % 78.1 % (38.7-73.9); Platelet Count 211 T/CUMM (130-400); Red Cell Distribution Width 19.2 % (9.3-17.3); White Blood Count 9.6 T/CUMM (4-12)
[2017-02-04] MEDS: INSULIN LISPRO 100 UNIT/ML SUBCUT SCH ×4 (08:42→21:01)
[2017-02-04] MEDS: PANTOPRAZOLE 40 MG VIAL IV SCH (08:42)
[2017-02-04] MEDS: FUROSEMIDE 100 MG/10 ML VIAL IV SCH ×2 (08:45→14:24)
[2017-02-04 09:17] LABS: Band Neutrophils 2 % (0-10); Hypochromasia 1+; Lymphocytes 15 % (20-55); Microcytosis 1+; Ovalocytes Slight; Segmented Neutrophils 80 % (50-85); Total Cells Counted 100
[2017-02-04 09:18] LABS: Acanthocytes Few; Platelet Estimate Normal
[2017-02-04] MEDS: DESITIN 4OZ/NYSTATIN 15 GRAM MIXTURE PASTE TOP SCH ×2 (10:01→21:01)
[2017-02-04] MEDS: MULTIVITAMIN (CENTRUM) TABLET PO SCH (11:35)
[2017-02-04] MEDS: CALCIUM (CARBONATE) 600 MG TABLET PO SCH (11:35)
[2017-02-04] MEDS: FERROUS SULFATE 325 MG TABLET PO SCH (13:17)
[2017-02-04] MEDS: predniSONE 5 MG TABLET PO SCH ×2 (13:18→21:00)
[2017-02-04] MEDS: CARVEDILOL 12.5 MG TABLET PO SCH ×2 (13:19→21:00)
[2017-02-04] MEDS: POLYETHYLENE GLYCOL POWDER 17 GM PACK PO SCH (13:19)
[2017-02-04] MEDS: AMIODARONE 200 MG TABLET PO SCH (13:19)
[2017-02-04] MEDS: DULoxetine 30 MG CAPSULE PO SCH (13:19)
[2017-02-04] MEDS: ASCORBIC ACID 500 MG TABLET PO SCH (13:20)
[2017-02-04] MEDS: CARVEDILOL 6.25 MG TABLET PO SCH (13:50)
[2017-02-04] MEDS: SODIUM BICARBONATE 650 MG TABLET PO SCH (13:50)
[2017-02-04] MEDS: ACETAMINOPHEN 325 MG TABLET PO PRN (21:00)
[2017-02-04] MEDS: FUROSEMIDE 40 MG/4 ML VIAL IV SCH (21:00)
[2017-02-04] MEDS: MONTELUKAST 10 MG TABLET PO SCH (21:00)
[2017-02-04] MEDS: ATORVASTATIN 40 MG TABLET PO SCH (21:00)
[2017-02-04] MEDS: AMITRIPTYLINE 25 MG TABLET PO PRN (21:01)
[2017-02-04] MEDS: SODIUM BICARB INJ 100 MEQ in STERILE WATER INJ 1,000 ML IV SCH (22:44)
[2017-02-05] MEDS: PIPERACILLIN/TAZOBACTAM 3,375 MG in SODIUM CHLORIDE 0.9% 100 ML IV SCH ×2 (02:35→14:19)
[2017-02-05 04:53] LABS: Basophils % 0.1 % (0.0-0.8); Eosinophils % 0.1 % (0.00-10.9); Hemoglobin 7.6 GM/DL (12.0-16.0); Immature Granulocytes % 0.5 %; Immature Granulocytes Absolute 0.06 #; Lymphocytes # 1.5 10*3/uL (1.4-4.0); Lymphocytes % 12.9 % (21.3-54.2); Mean Corpuscular Hemoglobin 29 PG (27-34); Mean Corpuscular Volume 87.1 FL (87-102); Mean Platelet Volume 9.7 FL (9.6-12.0); Monocytes # 0.7 10*3/uL (0.11-0.8); Monocytes % 5.7 % (1.7-12.7); Neutrophils # 9.3 10*3/uL (1.4-7.4); Neutrophils % 80.7 % (38.7-73.9); Platelet Count 211 T/CUMM (130-400); Red Blood Count 2.64 MC/CUMM (3.8-5.5); Red Cell Distribution Width 19.3 % (9.3-17.3); White Blood Count 11.6 T/CUMM (4-12)
[2017-02-05 05:22] LABS: Calcium 7.3 MG/DL (8.5-10.1); Potassium 5.2 MMOL/L (3.5-5.1)
[2017-02-05 05:30] LABS: Burr Cells Slight; Giant Platelets Few; Hypochromasia 1+; Lymphocytes 11 % (20-55); Ovalocytes Slight; Platelet Estimate Adequate; Segmented Neutrophils 86 % (50-85); Total Cells Counted 100
[2017-02-05 05:31] LABS: Microcytosis Slight
[2017-02-05] MEDS: PANTOPRAZOLE 40 MG TABLET PO SCH (05:45)
[2017-02-05] MEDS: LEVOTHYROXINE 50 MCG TABLET PO SCH (05:45)
[2017-02-05] MEDS: POLYETHYLENE GLYCOL POWDER 17 GM PACK PO SCH (08:27)
[2017-02-05] MEDS: INSULIN LISPRO 100 UNIT/ML SUBCUT SCH ×4 (08:27→21:19)
[2017-02-05] MEDS: FERROUS SULFATE 325 MG TABLET PO SCH (08:28)
[2017-02-05] MEDS: MULTIVITAMIN (CENTRUM) TABLET PO SCH (08:28)
[2017-02-05] MEDS: CARVEDILOL 12.5 MG TABLET PO SCH (08:28)
[2017-02-05] MEDS: DULoxetine 30 MG CAPSULE PO SCH (08:28)
[2017-02-05] MEDS: CALCIUM (CARBONATE) 600 MG TABLET PO SCH (08:29)
[2017-02-05] MEDS: predniSONE 5 MG TABLET PO SCH (08:29)
[2017-02-05] MEDS: PANTOPRAZOLE 40 MG VIAL IV SCH (08:29)
[2017-02-05] MEDS: ASCORBIC ACID 500 MG TABLET PO SCH (08:29)
[2017-02-05] MEDS: AMIODARONE 200 MG TABLET PO SCH ×2 (08:29→21:19)
[2017-02-05] MEDS: FUROSEMIDE 40 MG/4 ML VIAL IV SCH ×3 (08:31→21:20)
[2017-02-05] MEDS: DESITIN 4OZ/NYSTATIN 15 GRAM MIXTURE PASTE TOP SCH ×2 (08:35→21:25)
[2017-02-05] MEDS: SODIUM CHLORIDE 0.45% 1,000 ML IV SCH (09:37)
[2017-02-05] MEDS: PHENOL 1.4% THROAT SPRAY 177 ML BOTTLE PO PRN (09:39)
[2017-02-05] MEDS ORDERED: SODIUM CHLORIDE 0.9% 1,000 ML IV PRN (13:18)
[2017-02-05] MEDS: DILTIAZEM 60 MG TABLET PO SCH ×2 (16:44→21:21)
[2017-02-05] MEDS: CARVEDILOL 25 MG TABLET PO SCH (21:18)
[2017-02-05] MEDS: MONTELUKAST 10 MG TABLET PO SCH (21:19)
[2017-02-05] MEDS: ATORVASTATIN 40 MG TABLET PO SCH (21:19)
[2017-02-05] MEDS ORDERED: DIGOXIN 0.125 MG TABLET PO ONE (23:20)
[2017-02-06] MEDS: PIPERACILLIN/TAZOBACTAM 3,375 MG in SODIUM CHLORIDE 0.9% 100 ML IV SCH ×2 (05:38→17:26)
[2017-02-06] MEDS: PANTOPRAZOLE 40 MG TABLET PO SCH (05:39)
[2017-02-06] MEDS: LEVOTHYROXINE 50 MCG TABLET PO SCH (05:39)
[2017-02-06] MEDS ORDERED: METOPROLOL TARTRATE 5 MG/5 ML VIAL IV ONE (06:11)
[2017-02-06] MEDS: INSULIN LISPRO 100 UNIT/ML SUBCUT SCH ×4 (07:30→21:49)
[2017-02-06 08:09] LABS: Basophils % 0.2 % (0.0-0.8); Eosinophils # 0.1 10*3/uL (0.0-0.87); Eosinophils % 0.4 % (0.00-10.9); Hematocrit 25.9 VOL% (35.7-47.0); Hemoglobin 8.9 GM/DL (12.0-16.0); Immature Granulocytes % 0.6 %; Immature Granulocytes Absolute 0.07 #; Lymphocytes # 2.9 10*3/uL (1.4-4.0); Mean Corpuscular HGB Conc 34.4 GM/DL (32-36); Mean Corpuscular Hemoglobin 30 PG (27-34); Mean Corpuscular Volume 88.1 FL (87-102); Mean Platelet Volume 10.1 FL (9.6-12.0); Monocytes # 0.9 10*3/uL (0.11-0.8); Monocytes % 7.1 % (1.7-12.7); Neutrophils # 8.5 10*3/uL (1.4-7.4); Neutrophils % 68.7 % (38.7-73.9); Platelet Count 225 T/CUMM (130-400); Red Blood Count 2.94 MC/CUMM (3.8-5.5); Red Cell Distribution Width 17.6 % (9.3-17.3); White Blood Count 12.4 T/CUMM (4-12)
[2017-02-06 08:28] LABS: Burr Cells Slight; Giant Platelets Few; Hypochromasia Slight; Ovalocytes Slight; Platelet Estimate Adequate
[2017-02-06 08:34] LABS: Calcium 7.8 MG/DL (8.5-10.1); Osmolality,Calculated 316.4 MOS/KG (273-304); Potassium 4.1 MMOL/L (3.5-5.1)
[2017-02-06 08:38] LABS: Albumin 1.6 G/DL (3.4-5.0); Bilirubin,Total 0.7 MG/DL (0.2-1.0); Calcium 7.8 MG/DL (8.5-10.1); Osmolality,Calculated 311.7 MOS/KG (273-304); Total Protein 4.7 G/DL (6.4-8.3)
[2017-02-06 10:07] LABS: Calcium 7.9 MG/DL (8.5-10.1); Osmolality,Calculated 309.7 MOS/KG (273-304); Potassium 4.1 MMOL/L (3.5-5.1)
[2017-02-06] MEDS: FUROSEMIDE 40 MG/4 ML VIAL IV SCH ×2 (10:09→17:40)
[2017-02-06] MEDS ORDERED: SODIUM CHLORIDE 0.9% 1,000 ML IV PRN (11:23)
[2017-02-06] MEDS: CALCIUM (CARBONATE) 600 MG TABLET PO SCH (13:20)
[2017-02-06] MEDS: AMIODARONE 200 MG TABLET PO SCH ×2 (13:20→21:49)
[2017-02-06] MEDS: DULoxetine 30 MG CAPSULE PO SCH (13:21)
[2017-02-06] MEDS: MULTIVITAMIN (CENTRUM) TABLET PO SCH (13:22)
[2017-02-06] MEDS: DILTIAZEM 60 MG TABLET PO SCH ×3 (13:22→21:48)
[2017-02-06] MEDS: FERROUS SULFATE 325 MG TABLET PO SCH (13:24)
[2017-02-06] MEDS: CARVEDILOL 25 MG TABLET PO SCH ×2 (13:24→21:49)
[2017-02-06] MEDS: ASCORBIC ACID 500 MG TABLET PO SCH (13:24)
[2017-02-06] MEDS: POLYETHYLENE GLYCOL POWDER 17 GM PACK PO SCH (13:25)
[2017-02-06] MEDS: DESITIN 4OZ/NYSTATIN 15 GRAM MIXTURE PASTE TOP SCH ×2 (13:25→21:50)
[2017-02-06] MEDS: PANTOPRAZOLE 40 MG VIAL IV SCH (17:26)
[2017-02-06] MEDS ORDERED: DIGOXIN 0.5 MG/2 ML AMP IV ONE (18:26)
[2017-02-06 18:38] LABS: Hemoglobin 11.1 GM/DL (12.0-16.0)
[2017-02-06] MEDS: MONTELUKAST 10 MG TABLET PO SCH (21:48)
[2017-02-06] MEDS: ATORVASTATIN 40 MG TABLET PO SCH (21:51)
[2017-02-07] MEDS: SODIUM CHLORIDE 0.45% 1,000 ML IV SCH ×2 (03:04→20:57)
[2017-02-07] MEDS: PIPERACILLIN/TAZOBACTAM 3,375 MG in SODIUM CHLORIDE 0.9% 100 ML IV SCH ×2 (03:13→15:10)
[2017-02-07 04:44] LABS: Basophils % 0.3 % (0.0-0.8); Eosinophils # 0.1 10*3/uL (0.0-0.87); Eosinophils % 0.6 % (0.00-10.9); Hematocrit 29.4 VOL% (35.7-47.0); Hemoglobin 9.7 GM/DL (12.0-16.0); Immature Granulocytes % 0.7 %; Immature Granulocytes Absolute 0.08 #; Lymphocytes # 2.8 10*3/uL (1.4-4.0); Lymphocytes % 24.2 % (21.3-54.2); Mean Corpuscular Hemoglobin 30 PG (27-34); Mean Corpuscular Volume 89.9 FL (87-102); Mean Platelet Volume 10.2 FL (9.6-12.0); Monocytes # 0.7 10*3/uL (0.11-0.8); Monocytes % 6.3 % (1.7-12.7); Neutrophils # 7.9 10*3/uL (1.4-7.4); Neutrophils % 67.9 % (38.7-73.9); Platelet Count 180 T/CUMM (130-400); Red Blood Count 3.27 MC/CUMM (3.8-5.5); Red Cell Distribution Width 17.2 % (9.3-17.3); White Blood Count 11.7 T/CUMM (4-12)
[2017-02-07 05:26] LABS: Eosinophils 1 % (0-10); Hypochromasia 1+; Lymphocytes 21 % (20-55); Microcytosis 1+; Ovalocytes Slight; Segmented Neutrophils 73 % (50-85); Total Cells Counted 100
[2017-02-07 05:29] LABS: Platelet Estimate Adequate
[2017-02-07 05:41] LABS: Calcium 7.4 MG/DL (8.5-10.1); Osmolality,Calculated 307.8 MOS/KG (273-304); Potassium 3.6 MMOL/L (3.5-5.1)
[2017-02-07] MEDS: LEVOTHYROXINE 50 MCG TABLET PO SCH (06:31)
[2017-02-07] MEDS: PANTOPRAZOLE 40 MG TABLET PO SCH (06:31)
[2017-02-07] MEDS: CALCIUM (CARBONATE) 600 MG TABLET PO SCH (11:09)
[2017-02-07] MEDS: POTASSIUM CHLORIDE 20 MEQ TABLET PO SCH ×2 (11:09→20:56)
[2017-02-07] MEDS: CARVEDILOL 25 MG TABLET PO SCH ×2 (11:09→20:56)
[2017-02-07] MEDS: DULoxetine 30 MG CAPSULE PO SCH (11:09)
[2017-02-07] MEDS: DILTIAZEM 60 MG TABLET PO SCH ×3 (11:10→20:56)
[2017-02-07] MEDS: MULTIVITAMIN (CENTRUM) TABLET PO SCH (11:10)
[2017-02-07] MEDS: FERROUS SULFATE 325 MG TABLET PO SCH (11:10)
[2017-02-07] MEDS: AMIODARONE 200 MG TABLET PO SCH ×2 (11:12→20:56)
[2017-02-07] MEDS: FUROSEMIDE 40 MG/4 ML VIAL IV SCH ×2 (11:13→15:18)
[2017-02-07] MEDS: ASCORBIC ACID 500 MG TABLET PO SCH (11:41)
[2017-02-07] MEDS: INSULIN LISPRO 100 UNIT/ML SUBCUT SCH ×4 (12:00→21:45)
[2017-02-07] MEDS: POLYETHYLENE GLYCOL POWDER 17 GM PACK PO SCH (13:11)
[2017-02-07] MEDS: PANTOPRAZOLE 40 MG VIAL IV SCH (13:11)
[2017-02-07] MEDS: DESITIN 4OZ/NYSTATIN 15 GRAM MIXTURE PASTE TOP SCH ×2 (13:11→21:45)
[2017-02-07] MEDS: ACETAMINOPHEN 325 MG TABLET PO PRN (17:20)
[2017-02-07] MEDS: MONTELUKAST 10 MG TABLET PO SCH (20:56)
[2017-02-07] MEDS: ATORVASTATIN 40 MG TABLET PO SCH (20:56)
[2017-02-08] MEDS: PIPERACILLIN/TAZOBACTAM 3,375 MG in SODIUM CHLORIDE 0.9% 100 ML IV SCH ×2 (02:25→15:25)
[2017-02-08 05:01] LABS: Basophils % 0.3 % (0.0-0.8); Eosinophils # 0.1 10*3/uL (0.0-0.87); Eosinophils % 0.8 % (0.00-10.9); Hematocrit 26.7 VOL% (35.7-47.0); Hemoglobin 8.7 GM/DL (12.0-16.0); Immature Granulocytes Absolute 0.13 #; Lymphocytes # 2.6 10*3/uL (1.4-4.0); Lymphocytes % 20.1 % (21.3-54.2); Mean Corpuscular HGB Conc 32.6 GM/DL (32-36); Mean Corpuscular Hemoglobin 30 PG (27-34); Mean Corpuscular Volume 91.1 FL (87-102); Mean Platelet Volume 10.4 FL (9.6-12.0); Monocytes # 0.9 10*3/uL (0.11-0.8); Monocytes % 6.5 % (1.7-12.7); Neutrophils # 9.4 10*3/uL (1.4-7.4); Neutrophils % 71.3 % (38.7-73.9); Platelet Count 161 T/CUMM (130-400); Red Blood Count 2.93 MC/CUMM (3.8-5.5); Red Cell Distribution Width 17.7 % (9.3-17.3); White Blood Count 13.2 T/CUMM (4-12)
[2017-02-08 05:36] LABS: Calcium 7.7 MG/DL (8.5-10.1); Osmolality,Calculated 317.7 MOS/KG (273-304); Potassium 3.7 MMOL/L (3.5-5.1)
[2017-02-08] MEDS: LEVOTHYROXINE 50 MCG TABLET PO SCH (06:25)
[2017-02-08 06:26] LABS: Microcytosis 1+; Platelet Estimate Adequate
[2017-02-08] MEDS: PANTOPRAZOLE 40 MG TABLET PO SCH (06:29)
[2017-02-08] MEDS: FUROSEMIDE 40 MG/4 ML VIAL IV SCH ×2 (08:39→15:50)
[2017-02-08] MEDS: POTASSIUM CHLORIDE 20 MEQ TABLET PO SCH ×2 (08:44→21:15)
[2017-02-08] MEDS: AMIODARONE 200 MG TABLET PO SCH ×2 (08:44→21:14)
[2017-02-08] MEDS: INSULIN LISPRO 100 UNIT/ML SUBCUT SCH ×4 (08:44→21:15)
[2017-02-08] MEDS: DILTIAZEM 60 MG TABLET PO SCH ×3 (08:44→21:13)
[2017-02-08] MEDS: FERROUS SULFATE 325 MG TABLET PO SCH (08:44)
[2017-02-08] MEDS: MULTIVITAMIN (CENTRUM) TABLET PO SCH (08:44)
[2017-02-08] MEDS: CARVEDILOL 25 MG TABLET PO SCH ×2 (08:44→21:14)
[2017-02-08] MEDS: CALCIUM (CARBONATE) 600 MG TABLET PO SCH (08:45)
[2017-02-08] MEDS: ASCORBIC ACID 500 MG TABLET PO SCH (08:46)
[2017-02-08] MEDS: DULoxetine 30 MG CAPSULE PO SCH (08:46)
[2017-02-08] MEDS: POLYETHYLENE GLYCOL POWDER 17 GM PACK PO SCH (12:21)
[2017-02-08] MEDS: traMADol 50 MG TABLET PO PRN (14:43)
[2017-02-08] MEDS: DESITIN 4OZ/NYSTATIN 15 GRAM MIXTURE PASTE TOP SCH ×2 (15:26→21:16)
[2017-02-08] MEDS: MONTELUKAST 10 MG TABLET PO SCH (21:13)
[2017-02-08] MEDS: ATORVASTATIN 40 MG TABLET PO SCH (21:14)
[2017-02-09 02:30] LABS: Basophils % 0.2 % (0.0-0.8); Eosinophils # 0.1 10*3/uL (0.0-0.87); Eosinophils % 0.5 % (0.00-10.9); Hemoglobin 7.8 GM/DL (12.0-16.0); Immature Granulocytes % 0.7 %; Lymphocytes # 3.2 10*3/uL (1.4-4.0); Lymphocytes % 21.7 % (21.3-54.2); Mean Corpuscular HGB Conc 32.5 GM/DL (32-36); Mean Corpuscular Hemoglobin 30 PG (27-34); Monocytes # 1.2 10*3/uL (0.11-0.8); Monocytes % 7.9 % (1.7-12.7); Platelet Count 143 T/CUMM (130-400); Red Blood Count 2.61 MC/CUMM (3.8-5.5); Red Cell Distribution Width 17.8 % (9.3-17.3); White Blood Count 14.6 T/CUMM (4-12)
[2017-02-09] MEDS: PIPERACILLIN/TAZOBACTAM 3,375 MG in SODIUM CHLORIDE 0.9% 100 ML IV SCH ×2 (02:38→13:32)
[2017-02-09 03:04] LABS: Calcium 7.9 MG/DL (8.5-10.1); Osmolality,Calculated 311.4 MOS/KG (273-304); Potassium 3.7 MMOL/L (3.5-5.1)
[2017-02-09 04:29] LABS: Band Neutrophils 4 % (0-10); Eosinophils 1 % (0-10); Lymphocytes 27 % (20-55); Reactive Lymphocytes 1+; Segmented Neutrophils 64 % (50-85); Total Cells Counted 100
[2017-02-09 04:30] LABS: Anisocytosis 1+; Hypochromasia 1+; Microcytosis 1+; Platelet Estimate Normal
[2017-02-09 04:31] LABS: Burr Cells Few; Elliptocytes Few
[2017-02-09] MEDS: LEVOTHYROXINE 50 MCG TABLET PO SCH (07:12)
[2017-02-09] MEDS: INSULIN LISPRO 100 UNIT/ML SUBCUT SCH ×4 (08:55→20:13)
[2017-02-09] MEDS: FERROUS SULFATE 325 MG TABLET PO SCH (08:59)
[2017-02-09] MEDS: DILTIAZEM 60 MG TABLET PO SCH ×3 (08:59→20:43)
[2017-02-09] MEDS: CALCIUM (CARBONATE) 600 MG TABLET PO SCH (08:59)
[2017-02-09] MEDS: FUROSEMIDE 40 MG/4 ML VIAL IV SCH ×2 (08:59→15:28)
[2017-02-09] MEDS: DULoxetine 30 MG CAPSULE PO SCH (09:00)
[2017-02-09] MEDS: AMIODARONE 200 MG TABLET PO SCH ×2 (09:00→20:13)
[2017-02-09] MEDS: CARVEDILOL 25 MG TABLET PO SCH ×2 (09:00→20:13)
[2017-02-09] MEDS: PANTOPRAZOLE 40 MG TABLET PO SCH (09:00)
[2017-02-09] MEDS: POTASSIUM CHLORIDE 20 MEQ TABLET PO SCH ×2 (09:00→20:13)
[2017-02-09] MEDS: ASCORBIC ACID 500 MG TABLET PO SCH (09:00)
[2017-02-09] MEDS: POLYETHYLENE GLYCOL POWDER 17 GM PACK PO SCH (09:01)
[2017-02-09] MEDS: DESITIN 4OZ/NYSTATIN 15 GRAM MIXTURE PASTE TOP SCH ×2 (09:02→20:14)
[2017-02-09] MEDS: MULTIVITAMIN (CENTRUM) TABLET PO SCH (09:02)
[2017-02-09] MEDS: SODIUM CHLORIDE 0.45% 1,000 ML IV SCH (09:03)
[2017-02-09] MEDS: traMADol 50 MG TABLET PO PRN (13:33)
[2017-02-09 14:22] LABS: Apearance,Urine Slightly Hazy (Clear); Urine Color Yellow (Yellow)
[2017-02-09 14:23] LABS: Bilirubin,Urine Negative (Negative); Blood, Urine Large mg/dL (Negative); Glucose,Urine (UA) Negative (Negative); Ketones,Urine Negative (Negative); Nitrite,Urine Negative (Negative); Protein,Urine 30 MG/DL; Urine Specific Gravity 1.005 (1.001-1.035)
[2017-02-09 14:24] LABS: Urine Urobilinogen 0.2 EU/DL (0.2-1.0)
[2017-02-09 14:29] LABS: RBC,Urine FEW /HPF (0-4); Squamous Epithelial Cell,Urine Few /HPF (0-10); WBC,Urine Occasional /HPF (0-6)
[2017-02-09] MEDS: MONTELUKAST 10 MG TABLET PO SCH (20:13)
[2017-02-09] MEDS: ATORVASTATIN 40 MG TABLET PO SCH (20:13)
[2017-02-09] MEDS: PANTOPRAZOLE 40 MG VIAL IV SCH (22:32)
[2017-02-10] MEDS: PIPERACILLIN/TAZOBACTAM 3,375 MG in SODIUM CHLORIDE 0.9% 100 ML IV SCH ×2 (01:33→14:53)
[2017-02-10 05:35] LABS: Basophils % 0.2 % (0.0-0.8); Eosinophils # 0.1 10*3/uL (0.0-0.87); Eosinophils % 0.4 % (0.00-10.9); Hematocrit 21.5 VOL% (35.7-47.0); Hemoglobin 7.1 GM/DL (12.0-16.0); Immature Granulocytes % 0.6 %; Lymphocytes # 2.9 10*3/uL (1.4-4.0); Lymphocytes % 17.2 % (21.3-54.2); Mean Corpuscular Hemoglobin 30 PG (27-34); Mean Corpuscular Volume 91.1 FL (87-102); Mean Platelet Volume 11.2 FL (9.6-12.0); Monocytes % 5.8 % (1.7-12.7); Neutrophils # 12.8 10*3/uL (1.4-7.4); Neutrophils % 75.8 % (38.7-73.9); Platelet Count 149 T/CUMM (130-400); Red Blood Count 2.36 MC/CUMM (3.8-5.5); Red Cell Distribution Width 18.1 % (9.3-17.3); White Blood Count 16.8 T/CUMM (4-12)
[2017-02-10 06:11] LABS: Band Neutrophils 10 % (0-10); Lymphocytes 19 % (20-55); Myelocytes 1 %; Segmented Neutrophils 64 % (50-85); Total Cells Counted 100
[2017-02-10 06:12] LABS: Hypochromasia 2+; Macrocytosis 1+; Platelet Estimate Adequate; Target Cells Slight
[2017-02-10] MEDS: LEVOTHYROXINE 50 MCG TABLET PO SCH (08:31)
[2017-02-10] MEDS: DILTIAZEM 60 MG TABLET PO SCH ×3 (08:31→20:42)
[2017-02-10] MEDS: CARVEDILOL 25 MG TABLET PO SCH ×2 (08:31→20:42)
[2017-02-10] MEDS: AMIODARONE 200 MG TABLET PO SCH ×2 (08:31→20:42)
[2017-02-10] MEDS: FERROUS SULFATE 325 MG TABLET PO SCH (08:32)
[2017-02-10] MEDS: DULoxetine 30 MG CAPSULE PO SCH (08:32)
[2017-02-10] MEDS: POTASSIUM CHLORIDE 20 MEQ TABLET PO SCH ×2 (08:32→20:42)
[2017-02-10] MEDS: CALCIUM (CARBONATE) 600 MG TABLET PO SCH (08:32)
[2017-02-10] MEDS: PANTOPRAZOLE 40 MG TABLET PO SCH (08:32)
[2017-02-10] MEDS: ASCORBIC ACID 500 MG TABLET PO SCH (08:32)
[2017-02-10] MEDS: FUROSEMIDE 40 MG/4 ML VIAL IV SCH ×2 (08:33→16:19)
[2017-02-10] MEDS: POLYETHYLENE GLYCOL POWDER 17 GM PACK PO SCH (08:34)
[2017-02-10] MEDS: MULTIVITAMIN (CENTRUM) TABLET PO SCH (08:35)
[2017-02-10] MEDS: DESITIN 4OZ/NYSTATIN 15 GRAM MIXTURE PASTE TOP SCH ×2 (08:35→20:42)
[2017-02-10] MEDS: INSULIN LISPRO 100 UNIT/ML SUBCUT SCH ×4 (08:36→20:41)
[2017-02-10] MEDS ORDERED: SODIUM CHLORIDE 0.9% 1,000 ML IV PRN (09:04)
[2017-02-10] MEDS: SODIUM CHLORIDE 0.45% 1,000 ML IV SCH (09:07)
[2017-02-10] MEDS ORDERED: FUROSEMIDE 40 MG/4 ML VIAL IV ONE (09:37)
[2017-02-10] MEDS: traMADol 50 MG TABLET PO PRN (14:22)
[2017-02-10] MEDS: MONTELUKAST 10 MG TABLET PO SCH (20:42)
[2017-02-10] MEDS: ATORVASTATIN 40 MG TABLET PO SCH (20:42)
[2017-02-11] MEDS: PIPERACILLIN/TAZOBACTAM 3,375 MG in SODIUM CHLORIDE 0.9% 100 ML IV SCH ×2 (01:35→14:57)
[2017-02-11 02:13] LABS: Basophils # 0.1 10*3/uL (0.0-0.2); Basophils % 0.6 % (0.0-0.8); Eosinophils % 0.3 % (0.00-10.9); Hematocrit 31.4 VOL% (35.7-47.0); Hemoglobin 10.5 GM/DL (12.0-16.0); Immature Granulocytes Absolute 0.14 #; Lymphocytes # 2.6 10*3/uL (1.4-4.0); Lymphocytes % 17.8 % (21.3-54.2); Mean Corpuscular HGB Conc 33.4 GM/DL (32-36); Mean Corpuscular Hemoglobin 31 PG (27-34); Mean Corpuscular Volume 92.4 FL (87-102); Mean Platelet Volume 10.9 FL (9.6-12.0); Monocytes % 6.9 % (1.7-12.7); Neutrophils # 10.6 10*3/uL (1.4-7.4); Neutrophils % 73.4 % (38.7-73.9); Platelet Count 126 T/CUMM (130-400); Red Cell Distribution Width 17.2 % (9.3-17.3); White Blood Count 14.4 T/CUMM (4-12)
[2017-02-11 02:35] LABS: Calcium 7.7 MG/DL (8.5-10.1); Osmolality,Calculated 322.1 MOS/KG (273-304); Potassium 3.8 MMOL/L (3.5-5.1)
[2017-02-11] MEDS: LEVOTHYROXINE 50 MCG TABLET PO SCH (05:22)
[2017-02-11] MEDS: INSULIN LISPRO 100 UNIT/ML SUBCUT SCH ×4 (08:02→20:13)
[2017-02-11] MEDS: MULTIVITAMIN (CENTRUM) TABLET PO SCH (09:26)
[2017-02-11] MEDS: POTASSIUM CHLORIDE 20 MEQ TABLET PO SCH ×2 (09:26→21:41)
[2017-02-11] MEDS: FUROSEMIDE 40 MG/4 ML VIAL IV SCH ×2 (09:26→15:53)
[2017-02-11] MEDS: CALCIUM (CARBONATE) 600 MG TABLET PO SCH (09:26)
[2017-02-11] MEDS: DULoxetine 30 MG CAPSULE PO SCH (09:26)
[2017-02-11] MEDS: POLYETHYLENE GLYCOL POWDER 17 GM PACK PO SCH ×2 (09:26→09:43)
[2017-02-11] MEDS: DILTIAZEM 60 MG TABLET PO SCH (09:26)
[2017-02-11] MEDS: CARVEDILOL 25 MG TABLET PO SCH (09:27)
[2017-02-11] MEDS: FERROUS SULFATE 325 MG TABLET PO SCH (09:27)
[2017-02-11] MEDS: PANTOPRAZOLE 40 MG TABLET PO SCH (09:27)
[2017-02-11] MEDS: ASCORBIC ACID 500 MG TABLET PO SCH (09:27)
[2017-02-11] MEDS: AMIODARONE 200 MG TABLET PO SCH ×2 (09:27→21:41)
[2017-02-11] MEDS: DESITIN 4OZ/NYSTATIN 15 GRAM MIXTURE PASTE TOP SCH ×2 (09:27→21:42)
[2017-02-11] MEDS: SODIUM CHLORIDE 0.45% 1,000 ML IV SCH (11:34)
[2017-02-11] MEDS: traMADol 50 MG TABLET PO PRN (13:32)
[2017-02-11] MEDS: SODIUM CHLORIDE 0.9% 1,000 ML IV SCH (14:58)
[2017-02-11] MEDS: ACETAMINOPHEN 325 MG TABLET PO PRN (17:29)
[2017-02-11] MEDS: ATORVASTATIN 40 MG TABLET PO SCH (21:41)
[2017-02-11] MEDS: MONTELUKAST 10 MG TABLET PO SCH (21:41)
[2017-02-12] MEDS: PIPERACILLIN/TAZOBACTAM 3,375 MG in SODIUM CHLORIDE 0.9% 100 ML IV SCH ×2 (02:46→17:02)
[2017-02-12 03:33] LABS: Basophils # 0.1 10*3/uL (0.0-0.2); Basophils % 0.6 % (0.0-0.8); Eosinophils # 0.1 10*3/uL (0.0-0.87); Eosinophils % 0.6 % (0.00-10.9); Hematocrit 29.1 VOL% (35.7-47.0); Hemoglobin 9.8 GM/DL (12.0-16.0); Immature Granulocytes % 0.7 %; Lymphocytes # 1.8 10*3/uL (1.4-4.0); Lymphocytes % 12.3 % (21.3-54.2); Mean Corpuscular HGB Conc 33.7 GM/DL (32-36); Mean Corpuscular Hemoglobin 30 PG (27-34); Mean Corpuscular Volume 89.3 FL (87-102); Monocytes # 0.7 10*3/uL (0.11-0.8); Monocytes % 4.8 % (1.7-12.7); Neutrophils # 12.1 10*3/uL (1.4-7.4); Platelet Count 117 T/CUMM (130-400); Red Blood Count 3.26 MC/CUMM (3.8-5.5); Red Cell Distribution Width 17.2 % (9.3-17.3); White Blood Count 14.9 T/CUMM (4-12)
[2017-02-12 04:20] LABS: Calcium 7.4 MG/DL (8.5-10.1); Osmolality,Calculated 326.3 MOS/KG (273-304)
[2017-02-12 04:31] LABS: Band Neutrophils 4 % (0-10); Lymphocytes 10 % (20-55); Segmented Neutrophils 81 % (50-85)
[2017-02-12 04:33] LABS: Burr Cells 2+; Platelet Estimate Decreased
[2017-02-12 04:34] LABS: Hypochromasia Slight
[2017-02-12 04:36] LABS: Total Cells Counted 100
[2017-02-12] MEDS: SODIUM CHLORIDE 0.9% 1,000 ML IV SCH ×3 (05:57→17:55)
[2017-02-12] MEDS: LEVOTHYROXINE 50 MCG TABLET PO SCH (05:58)
[2017-02-12] MEDS ORDERED: cefOXitin 2,000 MG in SYRINGE 1 EACH IV ONE (06:00)
[2017-02-12] MEDS: FUROSEMIDE 40 MG/4 ML VIAL IV SCH ×2 (08:43→17:03)
[2017-02-12] MEDS: INSULIN LISPRO 100 UNIT/ML SUBCUT SCH ×4 (08:43→21:39)
[2017-02-12] MEDS: AMIODARONE 200 MG TABLET PO SCH ×2 (08:43→21:38)
[2017-02-12] MEDS: DULoxetine 30 MG CAPSULE PO SCH (08:44)
[2017-02-12] MEDS: POLYETHYLENE GLYCOL POWDER 17 GM PACK PO SCH (08:44)
[2017-02-12] MEDS: PANTOPRAZOLE 40 MG TABLET PO SCH (08:44)
[2017-02-12] MEDS: POTASSIUM CHLORIDE 20 MEQ TABLET PO SCH ×2 (08:44→21:39)
[2017-02-12] MEDS: FERROUS SULFATE 325 MG TABLET PO SCH (08:44)
[2017-02-12] MEDS: MULTIVITAMIN (CENTRUM) TABLET PO SCH (08:44)
[2017-02-12] MEDS: CALCIUM (CARBONATE) 600 MG TABLET PO SCH (08:44)
[2017-02-12] MEDS: DESITIN 4OZ/NYSTATIN 15 GRAM MIXTURE PASTE TOP SCH ×2 (08:45→21:40)
[2017-02-12] MEDS: ASCORBIC ACID 500 MG TABLET PO SCH (08:45)
[2017-02-12] MEDS: traMADol 50 MG TABLET PO PRN (11:12)
[2017-02-12] MEDS ORDERED: SUGAMMADEX 200 MG/2 ML VIAL IV ONE (13:34)
[2017-02-12] MEDS ORDERED: DESFLURANE 1 UNIT/15 MINUTE INH ONE (15:01)
[2017-02-12] MEDS ORDERED: ROCURONIUM 100 MG/10 ML VIAL IV ONE (15:02)
[2017-02-12] MEDS ORDERED: ETOMIDATE 40 MG/20 ML VIAL IV ONE (15:02)
[2017-02-12] MEDS ORDERED: DEXAMETHASONE 10 MG/1 ML VIAL ONE (15:02)
[2017-02-12] MEDS ORDERED: fentaNYL 100 MCG/2 ML VIAL ONE (15:02)
[2017-02-12] MEDS ORDERED: MIDAZOLAM 2 MG/2 ML VIAL ONE (15:02)
[2017-02-12] MEDS ORDERED: SUCCINYLCHOLINE 200 MG/10 ML VIAL ONE (15:02)
[2017-02-12] MEDS ORDERED: ONDANSETRON 4 MG/2 ML VIAL ONE (15:02)
[2017-02-12] MEDS: MONTELUKAST 10 MG TABLET PO SCH (21:38)
[2017-02-12] MEDS: ATORVASTATIN 40 MG TABLET PO SCH (21:39)
[2017-02-13] MEDS: PIPERACILLIN/TAZOBACTAM 3,375 MG in SODIUM CHLORIDE 0.9% 100 ML IV SCH ×2 (02:55→15:27)
[2017-02-13 05:36] LABS: Basophils # 0.1 10*3/uL (0.0-0.2); Basophils % 0.6 % (0.0-0.8); Hemoglobin 9.9 GM/DL (12.0-16.0); Immature Granulocytes % 1.2 %; Immature Granulocytes Absolute 0.15 #; Lymphocytes % 7.6 % (21.3-54.2); Mean Corpuscular Hemoglobin 30 PG (27-34); Mean Corpuscular Volume 91.5 FL (87-102); Mean Platelet Volume 10.8 FL (9.6-12.0); Monocytes # 0.3 10*3/uL (0.11-0.8); Monocytes % 2.4 % (1.7-12.7); Neutrophils % 88.2 % (38.7-73.9); Platelet Count 117 T/CUMM (130-400); Red Blood Count 3.28 MC/CUMM (3.8-5.5); Red Cell Distribution Width 17.6 % (9.3-17.3); White Blood Count 12.5 T/CUMM (4-12)
[2017-02-13 05:58] LABS: Burr Cells 1+; Microcytosis 1+
[2017-02-13 05:59] LABS: Platelet Estimate Adequate
[2017-02-13 06:23] LABS: Calcium 7.5 MG/DL (8.5-10.1); Osmolality,Calculated 326.8 MOS/KG (273-304); Potassium 5.2 MMOL/L (3.5-5.1)
[2017-02-13] MEDS: LEVOTHYROXINE 50 MCG TABLET PO SCH (07:02)
[2017-02-13] MEDS: SODIUM CHLORIDE 0.9% 1,000 ML IV SCH ×2 (07:03→21:31)
[2017-02-13] MEDS: CALCIUM (CARBONATE) 600 MG TABLET PO SCH (09:24)
[2017-02-13] MEDS: AMIODARONE 200 MG TABLET PO SCH ×2 (09:24→21:34)
[2017-02-13] MEDS: ASCORBIC ACID 500 MG TABLET PO SCH (09:24)
[2017-02-13] MEDS: FERROUS SULFATE 325 MG TABLET PO SCH (09:25)
[2017-02-13] MEDS: CARVEDILOL 3.125 MG TABLET PO SCH ×2 (09:25→21:34)
[2017-02-13] MEDS: POLYETHYLENE GLYCOL POWDER 17 GM PACK PO SCH (09:25)
[2017-02-13] MEDS: DESITIN 4OZ/NYSTATIN 15 GRAM MIXTURE PASTE TOP SCH ×2 (09:25→21:35)
[2017-02-13] MEDS: MULTIVITAMIN (CENTRUM) TABLET PO SCH (09:25)
[2017-02-13] MEDS: PANTOPRAZOLE 40 MG TABLET PO SCH (09:25)
[2017-02-13] MEDS: POTASSIUM CHLORIDE 20 MEQ TABLET PO SCH ×2 (09:25→21:35)
[2017-02-13] MEDS: DULoxetine 30 MG CAPSULE PO SCH (09:25)
[2017-02-13] MEDS: FUROSEMIDE 40 MG/4 ML VIAL IV SCH ×2 (09:26→15:26)
[2017-02-13] MEDS: INSULIN LISPRO 100 UNIT/ML SUBCUT SCH ×4 (09:26→21:32)
[2017-02-13] MEDS: traMADol 50 MG TABLET PO PRN (13:29)
[2017-02-13] MEDS: ATORVASTATIN 40 MG TABLET PO SCH (21:35)
[2017-02-13] MEDS: MONTELUKAST 10 MG TABLET PO SCH (21:35)
[2017-02-14] MEDS: PIPERACILLIN/TAZOBACTAM 3,375 MG in SODIUM CHLORIDE 0.9% 100 ML IV SCH ×2 (02:10→13:50)
[2017-02-14 05:10] LABS: Basophils % 0.2 % (0.0-0.8); Hemoglobin 8.5 GM/DL (12.0-16.0); Immature Granulocytes Absolute 0.16 #; Lymphocytes # 1.1 10*3/uL (1.4-4.0); Lymphocytes % 7.1 % (21.3-54.2); Mean Corpuscular HGB Conc 32.7 GM/DL (32-36); Mean Corpuscular Hemoglobin 30 PG (27-34); Mean Corpuscular Volume 92.5 FL (87-102); Mean Platelet Volume 11.9 FL (9.6-12.0); Monocytes # 0.7 10*3/uL (0.11-0.8); Monocytes % 4.3 % (1.7-12.7); Neutrophils # 13.9 10*3/uL (1.4-7.4); Neutrophils % 87.4 % (38.7-73.9); Platelet Count 115 T/CUMM (130-400); Red Blood Count 2.81 MC/CUMM (3.8-5.5); Red Cell Distribution Width 17.7 % (9.3-17.3); White Blood Count 15.9 T/CUMM (4-12)
[2017-02-14 05:47] LABS: Calcium 7.2 MG/DL (8.5-10.1); Osmolality,Calculated 331.1 MOS/KG (273-304); Potassium 5.3 MMOL/L (3.5-5.1)
[2017-02-14 05:53] LABS: Anisocytosis 1+; Hypochromasia 1+; Platelet Estimate Normal
[2017-02-14] MEDS: LEVOTHYROXINE 50 MCG TABLET PO SCH (07:59)
[2017-02-14] MEDS: POLYETHYLENE GLYCOL POWDER 17 GM PACK PO SCH (08:38)
[2017-02-14] MEDS: FERROUS SULFATE 325 MG TABLET PO SCH (08:38)
[2017-02-14] MEDS: AMIODARONE 200 MG TABLET PO SCH ×2 (08:39→21:47)
[2017-02-14] MEDS: CARVEDILOL 3.125 MG TABLET PO SCH ×2 (08:39→21:47)
[2017-02-14] MEDS: CALCIUM (CARBONATE) 600 MG TABLET PO SCH (08:39)
[2017-02-14] MEDS: PANTOPRAZOLE 40 MG TABLET PO SCH (08:39)
[2017-02-14] MEDS: FUROSEMIDE 40 MG/4 ML VIAL IV SCH ×2 (08:39→17:18)
[2017-02-14] MEDS: ASCORBIC ACID 500 MG TABLET PO SCH (08:39)
[2017-02-14] MEDS: MULTIVITAMIN (CENTRUM) TABLET PO SCH (08:39)
[2017-02-14] MEDS: DULoxetine 30 MG CAPSULE PO SCH (08:39)
[2017-02-14] MEDS: INSULIN LISPRO 100 UNIT/ML SUBCUT SCH ×4 (08:40→21:48)
[2017-02-14] MEDS: DESITIN 4OZ/NYSTATIN 15 GRAM MIXTURE PASTE TOP SCH (08:51)
[2017-02-14] MEDS: POTASSIUM CHLORIDE 20 MEQ TABLET PO SCH ×2 (08:51→21:47)
[2017-02-14] MEDS: SODIUM CHLORIDE 0.9% 1,000 ML IV SCH (12:15)
[2017-02-14] MEDS ORDERED: FLUCONAZOLE INJ 800 MG in PREMIX 1 EACH IV ONE (12:28)
[2017-02-14] MEDS: FLUCONAZOLE INJ 400 MG in PREMIX 1 EACH IV SCH ×2 (14:57→16:18)
[2017-02-14] MEDS: predniSONE 20 MG TABLET PO SCH (16:17)
[2017-02-14] MEDS: NYSTATIN 500,000 UNIT/5 ML UDCUP SWISH/SWAL SCH ×2 (16:18→21:48)
[2017-02-14] MEDS: SODIUM ACETATE 100 MEQ in DEXTROSE 5% NACL 0.22% 1,000 ML IV SCH (17:18)
[2017-02-14] MEDS: FAMOTIDINE 20 MG TABLET PO SCH (21:47)
[2017-02-14] MEDS: ATORVASTATIN 40 MG TABLET PO SCH (21:47)
[2017-02-14] MEDS: MONTELUKAST 10 MG TABLET PO SCH (21:48)
[2017-02-15] MEDS: DESITIN 4OZ/NYSTATIN 15 GRAM MIXTURE PASTE TOP SCH ×3 (01:41→22:12)
[2017-02-15] MEDS: PIPERACILLIN/TAZOBACTAM 3,375 MG in SODIUM CHLORIDE 0.9% 100 ML IV SCH ×2 (02:59→15:35)
[2017-02-15] MEDS: LEVOTHYROXINE 50 MCG TABLET PO SCH (05:18)
[2017-02-15 06:15] LABS: Basophils % 0.1 % (0.0-0.8); Hematocrit 20.5 VOL% (35.7-47.0); Hemoglobin 6.8 GM/DL (12.0-16.0); Immature Granulocytes Absolute 0.34 #; Lymphocytes # 1.2 10*3/uL (1.4-4.0); Mean Corpuscular HGB Conc 33.2 GM/DL (32-36); Mean Corpuscular Hemoglobin 30 PG (27-34); Mean Corpuscular Volume 91.5 FL (87-102); Mean Platelet Volume 12.1 FL (9.6-12.0); Monocytes # 0.4 10*3/uL (0.11-0.8); Monocytes % 2.4 % (1.7-12.7); Neutrophils # 14.7 10*3/uL (1.4-7.4); Neutrophils % 88.5 % (38.7-73.9); Platelet Count 129 T/CUMM (130-400); Red Blood Count 2.24 MC/CUMM (3.8-5.5); Red Cell Distribution Width 17.9 % (9.3-17.3); White Blood Count 16.6 T/CUMM (4-12)
[2017-02-15] MEDS ORDERED: SODIUM CHLORIDE 0.9% 1,000 ML IV PRN (06:51)
[2017-02-15 07:10] LABS: Calcium 7.1 MG/DL (8.5-10.1); Potassium 6.2 MMOL/L (3.5-5.1)
[2017-02-15 07:19] LABS: Band Neutrophils 1 % (0-10); Burr Cells 2+; Hypochromasia 2+; Lymphocytes 5 % (20-55); Microcytosis 2+; Platelet Estimate Decreased; Polychromasia Slight; Segmented Neutrophils 89 % (50-85); Target Cells Slight; Total Cells Counted 100
[2017-02-15] MEDS ORDERED: PANTOPRAZOLE 40 MG VIAL IV ONE (07:58)
[2017-02-15] MEDS ORDERED: DESMOPRESSIN 4 MCG/1 ML AMP IV ONE (08:19)
[2017-02-15] MEDS: NYSTATIN 500,000 UNIT/5 ML UDCUP SWISH/SWAL SCH ×4 (08:44→21:57)
[2017-02-15] MEDS: FERROUS SULFATE 325 MG TABLET PO SCH (08:44)
[2017-02-15] MEDS: MULTIVITAMIN (CENTRUM) TABLET PO SCH (08:44)
[2017-02-15] MEDS: CARVEDILOL 3.125 MG TABLET PO SCH ×2 (08:45→21:56)
[2017-02-15] MEDS: FUROSEMIDE 40 MG/4 ML VIAL IV SCH ×2 (08:45→15:35)
[2017-02-15] MEDS: POTASSIUM CHLORIDE 20 MEQ TABLET PO SCH (08:45)
[2017-02-15] MEDS: FAMOTIDINE 20 MG TABLET PO SCH ×2 (08:45→21:56)
[2017-02-15] MEDS: POLYETHYLENE GLYCOL POWDER 17 GM PACK PO SCH (08:45)
[2017-02-15] MEDS: DULoxetine 30 MG CAPSULE PO SCH (08:45)
[2017-02-15] MEDS: predniSONE 20 MG TABLET PO SCH (08:45)
[2017-02-15] MEDS: CALCIUM (CARBONATE) 600 MG TABLET PO SCH (08:46)
[2017-02-15] MEDS: AMIODARONE 200 MG TABLET PO SCH ×2 (08:46→21:56)
[2017-02-15] MEDS: ASCORBIC ACID 500 MG TABLET PO SCH (08:46)
[2017-02-15] MEDS ORDERED: DESMOPRESSIN INJ 20 MCG in SODIUM CHLORIDE 0.9% 50 ML IV ONE (09:00)
[2017-02-15] MEDS: SODIUM ACETATE 100 MEQ in DEXTROSE 5% NACL 0.22% 1,000 ML IV SCH (09:03)
[2017-02-15] MEDS: INSULIN LISPRO 100 UNIT/ML SUBCUT SCH ×4 (09:53→21:57)
[2017-02-15 10:58] LABS: INR 1.1; PT Patient Result 11.2 SECS
[2017-02-15 11:00] LABS: INR 1.1; PT Patient Result 11.1 SECS; Partial Thromboplastin Time 34.1 SECS (0-40)
[2017-02-15] MEDS: SODIUM ACETATE 150 MEQ in DEXTROSE 5% 1,000 ML IV SCH (11:46)
[2017-02-15] MEDS: FLUCONAZOLE INJ 400 MG in PREMIX 1 EACH IV SCH (11:47)
[2017-02-15] MEDS ORDERED: PANTOPRAZOLE 40 MG VIAL IV SCH (21:00)
[2017-02-15] MEDS: MONTELUKAST 10 MG TABLET PO SCH (21:56)
[2017-02-15] MEDS: ATORVASTATIN 40 MG TABLET PO SCH (21:57)
[2017-02-15] MEDS: PANTOPRAZOLE 40 MG VIAL IV SCH (21:57)
[2017-02-16] MEDS: SODIUM ACETATE 150 MEQ in DEXTROSE 5% 1,000 ML IV SCH ×2 (07:43→09:08)
[2017-02-16] MEDS: LEVOTHYROXINE 50 MCG TABLET PO SCH (07:43)
[2017-02-16] MEDS: FUROSEMIDE 40 MG/4 ML VIAL IV SCH ×2 (09:10→17:51)
[2017-02-16] MEDS: CARVEDILOL 3.125 MG TABLET PO SCH ×2 (09:10→21:16)
[2017-02-16] MEDS: AMIODARONE 200 MG TABLET PO SCH ×2 (09:10→21:16)
[2017-02-16] MEDS: CALCIUM (CARBONATE) 600 MG TABLET PO SCH (09:14)
[2017-02-16] MEDS: DESITIN 4OZ/NYSTATIN 15 GRAM MIXTURE PASTE TOP SCH ×2 (09:14→21:16)
[2017-02-16] MEDS: MULTIVITAMIN (CENTRUM) TABLET PO SCH (09:14)
[2017-02-16] MEDS: POLYETHYLENE GLYCOL POWDER 17 GM PACK PO SCH (09:14)
[2017-02-16] MEDS: ASCORBIC ACID 500 MG TABLET PO SCH (09:14)
[2017-02-16] MEDS: FERROUS SULFATE 325 MG TABLET PO SCH (09:14)
[2017-02-16] MEDS: DULoxetine 30 MG CAPSULE PO SCH (09:14)
[2017-02-16] MEDS: FAMOTIDINE 20 MG TABLET PO SCH ×2 (09:15→21:16)
[2017-02-16] MEDS: NYSTATIN 500,000 UNIT/5 ML UDCUP SWISH/SWAL SCH ×4 (09:15→21:16)
[2017-02-16] MEDS: predniSONE 20 MG TABLET PO SCH (09:15)
[2017-02-16 09:57] LABS: Basophils % 0.1 % (0.0-0.8); Hematocrit 27.3 VOL% (35.7-47.0); Immature Granulocytes Absolute 0.67 #; Lymphocytes # 2.3 10*3/uL (1.4-4.0); Lymphocytes % 10.3 % (21.3-54.2); Mean Corpuscular HGB Conc 33.7 GM/DL (32-36); Mean Corpuscular Hemoglobin 31 PG (27-34); Mean Corpuscular Volume 90.4 FL (87-102); Mean Platelet Volume 11.7 FL (9.6-12.0); Monocytes # 0.8 10*3/uL (0.11-0.8); Monocytes % 3.7 % (1.7-12.7); NRBC # 0.09 10*3/uL; Neutrophils # 18.7 10*3/uL (1.4-7.4); Neutrophils % 82.9 % (38.7-73.9); Platelet Count 123 T/CUMM (130-400); Red Cell Distribution Width 15.9 % (9.3-17.3)
[2017-02-16 09:58] LABS: Hemoglobin 9.2 GM/DL (12.0-16.0); Red Blood Count 3.02 MC/CUMM (3.8-5.5); White Blood Count 22.5 T/CUMM (4-12)
[2017-02-16] MEDS: PIPERACILLIN/TAZOBACTAM 3,375 MG in SODIUM CHLORIDE 0.9% 100 ML IV SCH ×2 (10:15→20:32)
[2017-02-16] MEDS: INSULIN LISPRO 100 UNIT/ML SUBCUT SCH ×4 (10:15→21:16)
[2017-02-16] MEDS: PANTOPRAZOLE 40 MG VIAL IV SCH ×2 (10:16→21:17)
[2017-02-16 10:24] LABS: Calcium 7.4 MG/DL (8.5-10.1); Potassium 5.4 MMOL/L (3.5-5.1)
[2017-02-16 10:39] LABS: Hypochromasia 1+; Lymphocytes 8 % (20-55); Nucleated Red Blood Cells 1 (0-5); Segmented Neutrophils 90 % (50-85); Total Cells Counted 100
[2017-02-16 10:40] LABS: Burr Cells Slight; Microcytosis 1+; Platelet Estimate Adequate
[2017-02-16] MEDS: FLUCONAZOLE INJ 400 MG in PREMIX 1 EACH IV SCH (14:14)
[2017-02-16] MEDS: cefTRIAXone 1,000 MG in SYRINGE 1 EACH IV SCH (15:48)
[2017-02-16 18:49] LABS: Apearance,Urine CLOUDY (Clear); Bilirubin,Urine Negative (Negative); Blood, Urine Large mg/dL (Negative); Glucose,Urine (UA) Negative (Negative); Ketones,Urine Negative (Negative); Nitrite,Urine Negative (Negative); Protein,Urine 30 MG/DL; RBC,Urine 309 /HPF (0-4); Squamous Epithelial Cell,Urine Occasional /HPF (0-10); Urine Color Yellow (Yellow); Urine Urobilinogen < 2.0 EU/DL (0.2-1.0); WBC,Urine 197 /HPF (0-6)
[2017-02-16] MEDS: ATORVASTATIN 40 MG TABLET PO SCH (21:16)
[2017-02-16] MEDS: MONTELUKAST 10 MG TABLET PO SCH (21:16)
[2017-02-17] MEDS: SODIUM ACETATE 150 MEQ in DEXTROSE 5% 1,000 ML IV SCH ×3 (06:28→17:22)
[2017-02-17] MEDS: LEVOTHYROXINE 50 MCG TABLET PO SCH (06:34)
[2017-02-17] MEDS: DESITIN 4OZ/NYSTATIN 15 GRAM MIXTURE PASTE TOP SCH ×2 (07:30→20:50)
[2017-02-17 07:51] LABS: Basophils % 0.1 % (0.0-0.8); Eosinophils # 0.1 10*3/uL (0.0-0.87); Eosinophils % 0.5 % (0.00-10.9); Hematocrit 20.3 VOL% (35.7-47.0); Immature Granulocytes Absolute 0.38 #; Lymphocytes # 3.2 10*3/uL (1.4-4.0); Lymphocytes % 17.4 % (21.3-54.2); Mean Corpuscular Hemoglobin 31 PG (27-34); Mean Corpuscular Volume 93.5 FL (87-102); Mean Platelet Volume 11.9 FL (9.6-12.0); Monocytes # 0.4 10*3/uL (0.11-0.8); Neutrophils # 14.5 10*3/uL (1.4-7.4); Platelet Count 100 T/CUMM (130-400); Red Cell Distribution Width 16.5 % (9.3-17.3); White Blood Count 18.6 T/CUMM (4-12)
[2017-02-17] MEDS: POLYETHYLENE GLYCOL POWDER 17 GM PACK PO SCH (08:08)
[2017-02-17] MEDS: DULoxetine 30 MG CAPSULE PO SCH (08:08)
[2017-02-17] MEDS: MULTIVITAMIN (CENTRUM) TABLET PO SCH (08:08)
[2017-02-17] MEDS: FERROUS SULFATE 325 MG TABLET PO SCH (08:08)
[2017-02-17] MEDS: ASCORBIC ACID 500 MG TABLET PO SCH (08:09)
[2017-02-17] MEDS: FAMOTIDINE 20 MG TABLET PO SCH ×3 (08:09→20:52)
[2017-02-17] MEDS: predniSONE 20 MG TABLET PO SCH (08:09)
[2017-02-17] MEDS: NYSTATIN 500,000 UNIT/5 ML UDCUP SWISH/SWAL SCH ×5 (08:09→20:51)
[2017-02-17 08:20] LABS: Bilirubin,Total 0.4 MG/DL (0.2-1.0); Calcium 6.9 MG/DL (8.5-10.1); Osmolality,Calculated 347.9 MOS/KG (273-304); Potassium 5.1 MMOL/L (3.5-5.1); Total Protein 3.9 G/DL (6.4-8.3)
[2017-02-17] MEDS: AMIODARONE 200 MG TABLET PO SCH ×3 (08:42→20:52)
[2017-02-17] MEDS: CARVEDILOL 3.125 MG TABLET PO SCH ×3 (08:42→20:52)
[2017-02-17] MEDS: CALCIUM (CARBONATE) 600 MG TABLET PO SCH (08:42)
[2017-02-17] MEDS: PANTOPRAZOLE 40 MG VIAL IV SCH ×2 (08:52→20:52)
[2017-02-17] MEDS: INSULIN LISPRO 100 UNIT/ML SUBCUT SCH ×4 (08:55→20:50)
[2017-02-17 08:58] LABS: Hemoglobin 6.7 GM/DL (12.0-16.0); Red Blood Count 2.17 MC/CUMM (3.8-5.5)
[2017-02-17] MEDS: FUROSEMIDE 40 MG/4 ML VIAL IV SCH ×2 (09:02→16:58)
[2017-02-17] MEDS: PIPERACILLIN/TAZOBACTAM 3,375 MG in SODIUM CHLORIDE 0.9% 100 ML IV SCH ×2 (09:08→20:50)
[2017-02-17 09:10] LABS: Hepatitis A Ab IgM Quant 0.08 Index; Hepatitis A Ab IgM Result Negative (Negative); Hepatitis B Core IgM Quant 0.07 Index; Hepatitis B Core IgM Result Negative (Negative); Hepatitis B Surface Ag Quant < 0.10 Index; Hepatitis B Surface Ag Result Negative (Negative); Hepatitis C Virus Ab Quant 0.05 Index; Hepatitis C Virus Ab Result Negative (Negative)
[2017-02-17 09:18] LABS: Lymphocytes 16 % (20-55); Microcytosis 1+; Nucleated Red Blood Cells 2 (0-5); Segmented Neutrophils 82 % (50-85); Total Cells Counted 100
[2017-02-17 09:19] LABS: Platelet Estimate Decreased; Polychromasia Slight
[2017-02-17] MEDS ORDERED: SODIUM CHLORIDE 0.9% 1,000 ML IV PRN (09:42)
[2017-02-17] MEDS ORDERED: CLINDAMYCIN INJ 900 MG in PREMIX 1 EACH IV ONE (09:43)
[2017-02-17] MEDS ORDERED: DESMOPRESSIN 4 MCG/1 ML AMP IV ONE (09:43)
[2017-02-17] MEDS ORDERED: DESMOPRESSIN 4 MCG/1 ML AMP SUBCUT ONE (09:43)
[2017-02-17] MEDS ORDERED: DESMOPRESSIN INJ 23 MCG in SODIUM CHLORIDE 0.9% 50 ML IV ONE (10:30)
[2017-02-17] MEDS ORDERED: PROPOFOL 200 MG/20 ML VIAL IV ONE (14:17)
[2017-02-17] MEDS: cefTRIAXone 1,000 MG in SYRINGE 1 EACH IV SCH (17:04)
[2017-02-17] MEDS: FLUCONAZOLE INJ 400 MG in PREMIX 1 EACH IV SCH (17:10)
[2017-02-17] MEDS: ATORVASTATIN 40 MG TABLET PO SCH ×2 (20:50→20:52)
[2017-02-17] MEDS: MONTELUKAST 10 MG TABLET PO SCH (20:52)
[2017-02-18] MEDS: LEVOTHYROXINE 50 MCG TABLET PO SCH (05:30)
[2017-02-18] MEDS: SODIUM ACETATE 150 MEQ in DEXTROSE 5% 1,000 ML IV SCH ×2 (06:50→14:50)
[2017-02-18] MEDS ORDERED: HEPARIN 5,000 UNIT/1 ML VIAL ONE (07:57)
[2017-02-18] MEDS ORDERED: CLINDAMYCIN INJ 50 ML IV ONE (08:10)
[2017-02-18] MEDS ORDERED: PROPOFOL 200 MG/20 ML VIAL IV ONE (09:31)
[2017-02-18] MEDS ORDERED: fentaNYL 100 MCG/2 ML VIAL ONE (09:31)
[2017-02-18] MEDS ORDERED: MIDAZOLAM 2 MG/2 ML VIAL ONE (09:32)
[2017-02-18] MEDS ORDERED: ONDANSETRON 4 MG/2 ML VIAL ONE (09:32)
[2017-02-18 09:44] LABS: Basophils % 0.2 % (0.0-0.8); Eosinophils # 0.1 10*3/uL (0.0-0.87); Eosinophils % 0.6 % (0.00-10.9); Hematocrit 24.4 VOL% (35.7-47.0); Hemoglobin 8.3 GM/DL (12.0-16.0); Immature Granulocytes % 2.1 %; Immature Granulocytes Absolute 0.41 #; Lymphocytes # 2.4 10*3/uL (1.4-4.0); Mean Corpuscular Hemoglobin 30 PG (27-34); Mean Corpuscular Volume 89.1 FL (87-102); Mean Platelet Volume 12.8 FL (9.6-12.0); Monocytes # 0.4 10*3/uL (0.11-0.8); Monocytes % 2.2 % (1.7-12.7); NRBC # 0.08 10*3/uL; Neutrophils # 16.5 10*3/uL (1.4-7.4); Neutrophils % 82.9 % (38.7-73.9); Platelet Count 67 T/CUMM (130-400); Red Blood Count 2.74 MC/CUMM (3.8-5.5); Red Cell Distribution Width 15.9 % (9.3-17.3); White Blood Count 19.9 T/CUMM (4-12)
[2017-02-18] MEDS: INSULIN LISPRO 100 UNIT/ML SUBCUT SCH ×4 (09:53→20:45)
[2017-02-18 10:13] LABS: Band Neutrophils 2 % (0-10); Lymphocytes 14 % (20-55); Nucleated Red Blood Cells 1 (0-5); Segmented Neutrophils 83 % (50-85); Total Cells Counted 100
[2017-02-18 10:14] LABS: Hypochromasia 1+; Microcytosis 1+
[2017-02-18 10:15] LABS: Platelet Estimate Decreased
[2017-02-18] MEDS: FUROSEMIDE 40 MG/4 ML VIAL IV SCH ×2 (10:40→17:40)
[2017-02-18] MEDS: PANTOPRAZOLE 40 MG VIAL IV SCH ×2 (10:45→21:20)
[2017-02-18] MEDS: PIPERACILLIN/TAZOBACTAM 3,375 MG in SODIUM CHLORIDE 0.9% 100 ML IV SCH ×2 (11:50→11:51)
[2017-02-18] MEDS: FLUCONAZOLE INJ 400 MG in PREMIX 1 EACH IV SCH (11:51)
[2017-02-18] MEDS: AMIODARONE 200 MG TABLET PO SCH ×2 (11:54→21:21)
[2017-02-18] MEDS: MULTIVITAMIN (CENTRUM) TABLET PO SCH (11:54)
[2017-02-18] MEDS: CALCIUM (CARBONATE) 600 MG TABLET PO SCH (11:54)
[2017-02-18] MEDS: CARVEDILOL 3.125 MG TABLET PO SCH ×2 (11:55→21:21)
[2017-02-18] MEDS: FAMOTIDINE 20 MG TABLET PO SCH ×2 (11:55→21:21)
[2017-02-18] MEDS: NYSTATIN 500,000 UNIT/5 ML UDCUP SWISH/SWAL SCH ×4 (11:55→22:04)
[2017-02-18] MEDS: POLYETHYLENE GLYCOL POWDER 17 GM PACK PO SCH (11:55)
[2017-02-18] MEDS: FERROUS SULFATE 325 MG TABLET PO SCH (11:55)
[2017-02-18] MEDS: predniSONE 20 MG TABLET PO SCH (11:55)
[2017-02-18] MEDS: DULoxetine 30 MG CAPSULE PO SCH (11:55)
[2017-02-18] MEDS: ASCORBIC ACID 500 MG TABLET PO SCH (11:56)
[2017-02-18] MEDS ORDERED: CLINDAMYCIN INJ 900 MG in PREMIX 1 EACH IV ONE (12:00)
[2017-02-18 12:01] LABS: Alanine Aminotransferase 76 U/L (13-56); Albumin 0.8 G/DL (3.4-5.0); Alkaline Phosphatase 152 U/L (45-117); Aspartate Amino Transferase 174 U/L (0-37); Bilirubin,Total < 0.39 MG/DL (0.2-1.0); Blood Urea Nitrogen 126 MG/DL (7-18); Calcium 6.7 MG/DL (8.5-10.1); Glucose 158 MG/DL (74-106); Osmolality,Calculated 337.3 MOS/KG (273-304); Potassium 4.7 MMOL/L (3.5-5.1); Sodium 148 MMOL/L (136-145); Total Protein 3.6 G/DL (6.4-8.3)
[2017-02-18] MEDS ORDERED: HEPARIN 10,000 UNIT/10 ML VIAL IV PRN (14:09)
[2017-02-18] MEDS ORDERED: ALBUMIN 25% 25 GM in PREMIX 1 EACH IV ONE (14:30)
[2017-02-18] MEDS ORDERED: ALBUMIN 25% 25 GM in PREMIX 1 EACH IV SCH (14:30)
[2017-02-18] MEDS ORDERED: SODIUM CHLORIDE 0.9% 1,000 ML IV PRN (17:02)
[2017-02-18] MEDS: cefTRIAXone 1,000 MG in SYRINGE 1 EACH IV SCH (17:21)
[2017-02-18] MEDS: DESITIN 4OZ/NYSTATIN 15 GRAM MIXTURE PASTE TOP SCH ×2 (17:41→19:40)
[2017-02-18 17:45] LABS: INR 1.2; PT Patient Result 12.1 SECS
[2017-02-18] MEDS: ATORVASTATIN 40 MG TABLET PO SCH (21:21)
[2017-02-18] MEDS: MONTELUKAST 10 MG TABLET PO SCH (21:21)
[2017-02-18] MEDS: HYDROmorphone 2 MG/1 ML VIAL IV PRN (22:51)
[2017-02-19] MEDS: HYDROmorphone 2 MG/1 ML VIAL IV PRN ×2 (02:43→21:53)
[2017-02-19] MEDS: LEVOTHYROXINE 50 MCG TABLET PO SCH (06:28)
[2017-02-19 06:46] LABS: Basophils % 0.2 % (0.0-0.8); Eosinophils # 0.1 10*3/uL (0.0-0.87); Eosinophils % 0.4 % (0.00-10.9); Hematocrit 27.4 VOL% (35.7-47.0); Hemoglobin 9.6 GM/DL (12.0-16.0); Immature Granulocytes % 1.5 %; Immature Granulocytes Absolute 0.33 #; Lymphocytes # 2.5 10*3/uL (1.4-4.0); Lymphocytes % 10.9 % (21.3-54.2); Mean Corpuscular Hemoglobin 30 PG (27-34); Mean Corpuscular Volume 85.1 FL (87-102); Mean Platelet Volume 11.1 FL (9.6-12.0); Monocytes # 0.6 10*3/uL (0.11-0.8); Monocytes % 2.4 % (1.7-12.7); NRBC # 0.05 10*3/uL; Neutrophils # 19.1 10*3/uL (1.4-7.4); Neutrophils % 84.6 % (38.7-73.9); Platelet Count 137 T/CUMM (130-400); Red Blood Count 3.22 MC/CUMM (3.8-5.5); Red Cell Distribution Width 15.9 % (9.3-17.3); White Blood Count 22.6 T/CUMM (4-12)
[2017-02-19 06:49] LABS: INR 1.1; PT Patient Result 11.9 SECS
[2017-02-19 07:13] LABS: Band Neutrophils 8 % (0-10); Lymphocytes 8 % (20-55); Segmented Neutrophils 83 % (50-85); Total Cells Counted 100
[2017-02-19 07:14] LABS: Platelet Estimate Normal; Toxic Granulation 1+
[2017-02-19 07:22] LABS: Osmolality,Calculated 315.3 MOS/KG (273-304); Potassium 4.1 MMOL/L (3.5-5.1)
[2017-02-19] MEDS: INSULIN LISPRO 100 UNIT/ML SUBCUT SCH ×4 (07:53→20:32)
[2017-02-19] MEDS: PANTOPRAZOLE 40 MG VIAL IV SCH ×2 (08:37→21:52)
[2017-02-19] MEDS: FUROSEMIDE 40 MG/4 ML VIAL IV SCH ×2 (08:40→15:54)
[2017-02-19] MEDS: CALCIUM (CARBONATE) 600 MG TABLET PO SCH (09:59)
[2017-02-19] MEDS: MULTIVITAMIN (CENTRUM) TABLET PO SCH (09:59)
[2017-02-19] MEDS: POLYETHYLENE GLYCOL POWDER 17 GM PACK PO SCH (10:04)
[2017-02-19] MEDS: FERROUS SULFATE 325 MG TABLET PO SCH (10:04)
[2017-02-19] MEDS: ASCORBIC ACID 500 MG TABLET PO SCH (10:05)
[2017-02-19] MEDS: NYSTATIN 500,000 UNIT/5 ML UDCUP SWISH/SWAL SCH ×4 (10:05→20:33)
[2017-02-19 15:05] LABS: Hematocrit 30.9 VOL% (35.7-47.0); Hemoglobin 10.4 GM/DL (12.0-16.0)
[2017-02-19] MEDS: predniSONE 20 MG TABLET PO SCH (15:12)
[2017-02-19] MEDS: AMIODARONE 200 MG TABLET PO SCH ×2 (15:12→20:22)
[2017-02-19] MEDS: FAMOTIDINE 20 MG TABLET PO SCH ×2 (15:12→20:33)
[2017-02-19] MEDS: CARVEDILOL 3.125 MG TABLET PO SCH ×2 (15:12→20:22)
[2017-02-19] MEDS: DULoxetine 30 MG CAPSULE PO SCH (15:12)
[2017-02-19] MEDS: cefTRIAXone 1,000 MG in SYRINGE 1 EACH IV SCH (15:48)
[2017-02-19] MEDS: FLUCONAZOLE INJ 400 MG in PREMIX 1 EACH IV SCH (15:53)
[2017-02-19] MEDS: DESITIN 4OZ/NYSTATIN 15 GRAM MIXTURE PASTE TOP SCH (15:54)
[2017-02-19] MEDS: DEXTROSE 50% 25 GM/50 ML VIAL IV PRN (17:17)
[2017-02-19] MEDS: MONTELUKAST 10 MG TABLET PO SCH (20:33)
[2017-02-19] MEDS: ATORVASTATIN 40 MG TABLET PO SCH (20:33)
[2017-02-20] MEDS: DESITIN 4OZ/NYSTATIN 15 GRAM MIXTURE PASTE TOP SCH ×3 (02:22→21:50)
[2017-02-20] MEDS: HYDROmorphone 2 MG/1 ML VIAL IV PRN ×2 (02:24→06:32)
[2017-02-20 04:26] LABS: Basophils % 0.2 % (0.0-0.8); Eosinophils % 0.1 % (0.00-10.9); Hematocrit 27.8 VOL% (35.7-47.0); Hemoglobin 9.3 GM/DL (12.0-16.0); Immature Granulocytes % 0.9 %; Immature Granulocytes Absolute 0.22 #; Lymphocytes # 3.2 10*3/uL (1.4-4.0); Mean Corpuscular HGB Conc 33.5 GM/DL (32-36); Mean Corpuscular Hemoglobin 29 PG (27-34); Mean Corpuscular Volume 87.4 FL (87-102); Mean Platelet Volume 11.8 FL (9.6-12.0); Monocytes # 0.6 10*3/uL (0.11-0.8); Monocytes % 2.4 % (1.7-12.7); NRBC # 0.04 10*3/uL; Neutrophils # 20.4 10*3/uL (1.4-7.4); Neutrophils % 83.4 % (38.7-73.9); Platelet Count 110 T/CUMM (130-400); Red Blood Count 3.18 MC/CUMM (3.8-5.5); Red Cell Distribution Width 17.4 % (9.3-17.3); White Blood Count 24.4 T/CUMM (4-12)
[2017-02-20 04:50] LABS: Potassium 3.6 MMOL/L (3.5-5.1)
[2017-02-20 05:08] LABS: Band Neutrophils 4 % (0-10); Lymphocytes 8 % (20-55); Segmented Neutrophils 86 % (50-85); Total Cells Counted 100
[2017-02-20 05:09] LABS: Hypochromasia Slight; Microcytosis 1+; Platelet Estimate Decreased
[2017-02-20] MEDS: LEVOTHYROXINE 50 MCG TABLET PO SCH (05:31)
[2017-02-20] MEDS: DEXTROSE 50% 25 GM/50 ML VIAL IV PRN (07:15)
[2017-02-20] MEDS: INSULIN LISPRO 100 UNIT/ML SUBCUT SCH ×2 (08:42→19:01)
[2017-02-20] MEDS: PANTOPRAZOLE 40 MG VIAL IV SCH ×2 (10:02→21:38)
[2017-02-20] MEDS: FUROSEMIDE 40 MG/4 ML VIAL IV SCH ×2 (10:02→15:51)
[2017-02-20] MEDS: CALCIUM (CARBONATE) 600 MG TABLET PO SCH (10:10)
[2017-02-20] MEDS: AMIODARONE 200 MG TABLET PO SCH ×2 (10:11→21:51)
[2017-02-20] MEDS: CARVEDILOL 3.125 MG TABLET PO SCH ×2 (10:11→21:51)
[2017-02-20] MEDS: MULTIVITAMIN (CENTRUM) TABLET PO SCH (10:11)
[2017-02-20] MEDS: predniSONE 20 MG TABLET PO SCH (10:12)
[2017-02-20] MEDS: FERROUS SULFATE 325 MG TABLET PO SCH (10:12)
[2017-02-20] MEDS: POLYETHYLENE GLYCOL POWDER 17 GM PACK PO SCH (10:12)
[2017-02-20] MEDS: NYSTATIN 500,000 UNIT/5 ML UDCUP SWISH/SWAL SCH ×4 (10:12→21:51)
[2017-02-20] MEDS: ASCORBIC ACID 500 MG TABLET PO SCH (10:12)
[2017-02-20] MEDS: DULoxetine 30 MG CAPSULE PO SCH (10:12)
[2017-02-20] MEDS: FAMOTIDINE 20 MG TABLET PO SCH ×2 (10:12→21:51)
[2017-02-20 14:18] LABS: Hematocrit 26.6 VOL% (35.7-47.0); Hemoglobin 9.2 GM/DL (12.0-16.0)
[2017-02-20] MEDS ORDERED: HALOPERIDOL 5 MG/ML AMP IV PRN (14:52)
[2017-02-20] MEDS ORDERED: PROMETHAZINE 25 MG/1 ML VIAL IM ONE (15:31)
[2017-02-20] MEDS: DEXTROSE 5% NACL 0.45% 1,000 ML IV SCH (15:45)
[2017-02-20] MEDS: cefTRIAXone 1,000 MG in SYRINGE 1 EACH IV SCH (15:45)
[2017-02-20] MEDS: FLUCONAZOLE INJ 400 MG in PREMIX 1 EACH IV SCH (17:30)
[2017-02-20] MEDS: MONTELUKAST 10 MG TABLET PO SCH (21:51)
[2017-02-20] MEDS: ATORVASTATIN 40 MG TABLET PO SCH (21:51)
[2017-02-21] MEDS: LEVOTHYROXINE 50 MCG TABLET PO SCH (05:21)
[2017-02-21] MEDS: DESITIN 4OZ/NYSTATIN 15 GRAM MIXTURE PASTE TOP SCH ×2 (09:15→21:32)
[2017-02-21] MEDS: DEXTROSE 5% NACL 0.45% 1,000 ML IV SCH (10:03)
[2017-02-21] MEDS: CALCIUM (CARBONATE) 600 MG TABLET PO SCH (10:03)
[2017-02-21] MEDS: AMIODARONE 200 MG TABLET PO SCH ×2 (10:04→21:32)
[2017-02-21] MEDS: CARVEDILOL 3.125 MG TABLET PO SCH ×2 (10:04→21:32)
[2017-02-21] MEDS: MULTIVITAMIN (CENTRUM) TABLET PO SCH (10:04)
[2017-02-21] MEDS: DULoxetine 30 MG CAPSULE PO SCH (10:04)
[2017-02-21] MEDS: FERROUS SULFATE 325 MG TABLET PO SCH (10:04)
[2017-02-21] MEDS: ASCORBIC ACID 500 MG TABLET PO SCH (10:06)
[2017-02-21] MEDS: POLYETHYLENE GLYCOL POWDER 17 GM PACK PO SCH (10:06)
[2017-02-21] MEDS: predniSONE 20 MG TABLET PO SCH (10:06)
[2017-02-21] MEDS: FAMOTIDINE 20 MG TABLET PO SCH ×2 (10:06→21:33)
[2017-02-21] MEDS: NYSTATIN 500,000 UNIT/5 ML UDCUP SWISH/SWAL SCH ×4 (10:06→21:33)
[2017-02-21] MEDS ORDERED: DEXTROSE 50% 25 GM/50 ML VIAL IV PRN (10:10)
[2017-02-21] MEDS ORDERED: GLUCAGON 1 MG VIAL IM PRN (10:10)
[2017-02-21] MEDS: FUROSEMIDE 40 MG/4 ML VIAL IV SCH ×2 (10:10→16:02)
[2017-02-21] MEDS: PANTOPRAZOLE 40 MG VIAL IV SCH ×2 (10:17→21:27)
[2017-02-21] MEDS: INSULIN LISPRO 100 UNIT/ML SUBCUT SCH ×3 (13:04→21:32)
[2017-02-21] MEDS: cefTRIAXone 1,000 MG in SYRINGE 1 EACH IV SCH (16:05)
[2017-02-21] MEDS: FLUCONAZOLE INJ 400 MG in PREMIX 1 EACH IV SCH (16:10)
[2017-02-21] MEDS: ALBUTEROL/IPRATROPIUM 3 ML NEB RESP TX PRN (16:30)
[2017-02-21] MEDS: MONTELUKAST 10 MG TABLET PO SCH (21:33)
[2017-02-21] MEDS: ATORVASTATIN 40 MG TABLET PO SCH (21:33)
[2017-02-21] MEDS ORDERED: BENZONATATE 100 MG CAPSULE PO PRN (22:04)
[2017-02-22] MEDS: LEVOTHYROXINE 50 MCG TABLET PO SCH (05:59)
[2017-02-22] MEDS: DEXTROSE 5% NACL 0.45% 1,000 ML IV SCH ×2 (05:59→12:46)
[2017-02-22 06:16] LABS: Basophils % 0.2 % (0.0-0.8); Eosinophils % 0.3 % (0.00-10.9); Hematocrit 24.2 VOL% (35.7-47.0); Hemoglobin 8.1 GM/DL (12.0-16.0); Immature Granulocytes % 1.7 %; Immature Granulocytes Absolute 0.23 #; Lymphocytes # 1.9 10*3/uL (1.4-4.0); Lymphocytes % 13.8 % (21.3-54.2); Mean Corpuscular HGB Conc 33.5 GM/DL (32-36); Mean Corpuscular Hemoglobin 30 PG (27-34); Mean Corpuscular Volume 88.3 FL (87-102); Mean Platelet Volume 11.7 FL (9.6-12.0); Monocytes # 0.4 10*3/uL (0.11-0.8); Monocytes % 3.1 % (1.7-12.7); NRBC # 0.02 10*3/uL; Neutrophils # 11.2 10*3/uL (1.4-7.4); Neutrophils % 80.9 % (38.7-73.9); Platelet Count 102 T/CUMM (130-400); Red Blood Count 2.74 MC/CUMM (3.8-5.5); Red Cell Distribution Width 18.2 % (9.3-17.3); White Blood Count 13.8 T/CUMM (4-12)
[2017-02-22 06:38] LABS: Calcium 6.8 MG/DL (8.5-10.1)
[2017-02-22] MEDS: ALBUTEROL/IPRATROPIUM 3 ML NEB RESP TX PRN ×2 (07:06→15:47)
[2017-02-22 08:07] LABS: Band Neutrophils 2 % (0-10); Lymphocytes 12 % (20-55); Platelet Estimate Decreased; Segmented Neutrophils 86 % (50-85); Total Cells Counted 100
[2017-02-22 08:08] LABS: Giant Platelets Few; Hypochromasia 1+; Microcytosis Slight; Ovalocytes Slight
[2017-02-22] MEDS: INSULIN LISPRO 100 UNIT/ML SUBCUT SCH ×4 (09:14→22:29)
[2017-02-22] MEDS: AMIODARONE 200 MG TABLET PO SCH ×2 (09:15→22:29)
[2017-02-22] MEDS: CALCIUM (CARBONATE) 600 MG TABLET PO SCH (09:15)
[2017-02-22] MEDS: FERROUS SULFATE 325 MG TABLET PO SCH (09:15)
[2017-02-22] MEDS: MULTIVITAMIN (CENTRUM) TABLET PO SCH (09:15)
[2017-02-22] MEDS: POLYETHYLENE GLYCOL POWDER 17 GM PACK PO SCH (09:15)
[2017-02-22] MEDS: CARVEDILOL 3.125 MG TABLET PO SCH ×2 (09:15→22:29)
[2017-02-22] MEDS: NYSTATIN 500,000 UNIT/5 ML UDCUP SWISH/SWAL SCH ×4 (09:15→22:30)
[2017-02-22] MEDS: DULoxetine 30 MG CAPSULE PO SCH (09:15)
[2017-02-22] MEDS: FAMOTIDINE 20 MG TABLET PO SCH ×2 (09:16→22:30)
[2017-02-22] MEDS: predniSONE 20 MG TABLET PO SCH (09:16)
[2017-02-22] MEDS: ASCORBIC ACID 500 MG TABLET PO SCH (09:16)
[2017-02-22] MEDS: FUROSEMIDE 40 MG/4 ML VIAL IV SCH ×2 (09:17→17:16)
[2017-02-22] MEDS: DESITIN 4OZ/NYSTATIN 15 GRAM MIXTURE PASTE TOP SCH ×2 (09:18→21:50)
[2017-02-22] MEDS: PANTOPRAZOLE 40 MG VIAL IV SCH ×2 (09:20→21:50)
[2017-02-22] MEDS: FLUCONAZOLE INJ 400 MG in PREMIX 1 EACH IV SCH (14:42)
[2017-02-22] MEDS: DEXTROSE 50% 25 GM/50 ML VIAL IV PRN (16:05)
[2017-02-22] MEDS: cefTRIAXone 1,000 MG in SYRINGE 1 EACH IV SCH (16:19)
[2017-02-22] MEDS ORDERED: NALOXONE 0.4 MG/ML VIAL IV PRN (16:53)
[2017-02-22] MEDS: ATORVASTATIN 40 MG TABLET PO SCH (22:30)
[2017-02-22] MEDS: MONTELUKAST 10 MG TABLET PO SCH (22:30)
[2017-02-23] MEDS: DEXTROSE 5% NACL 0.45% 1,000 ML IV SCH ×2 (01:51→21:25)
[2017-02-23] MEDS: LEVOTHYROXINE 50 MCG TABLET PO SCH (05:53)
[2017-02-23] MEDS: INSULIN LISPRO 100 UNIT/ML SUBCUT SCH ×4 (09:14→21:25)
[2017-02-23] MEDS: MULTIVITAMIN (CENTRUM) TABLET PO SCH (09:15)
[2017-02-23] MEDS: FERROUS SULFATE 325 MG TABLET PO SCH (09:15)
[2017-02-23] MEDS: DULoxetine 30 MG CAPSULE PO SCH (09:15)
[2017-02-23] MEDS: FUROSEMIDE 40 MG/4 ML VIAL IV SCH ×2 (09:15→16:33)
[2017-02-23] MEDS: CALCIUM (CARBONATE) 600 MG TABLET PO SCH (09:15)
[2017-02-23] MEDS: AMIODARONE 200 MG TABLET PO SCH ×2 (09:15→21:25)
[2017-02-23] MEDS: CARVEDILOL 3.125 MG TABLET PO SCH ×2 (09:15→21:26)
[2017-02-23] MEDS: predniSONE 20 MG TABLET PO SCH (09:16)
[2017-02-23] MEDS: DESITIN 4OZ/NYSTATIN 15 GRAM MIXTURE PASTE TOP SCH ×2 (09:16→21:26)
[2017-02-23] MEDS: PANTOPRAZOLE 40 MG VIAL IV SCH ×2 (09:16→21:25)
[2017-02-23] MEDS: POLYETHYLENE GLYCOL POWDER 17 GM PACK PO SCH (09:16)
[2017-02-23] MEDS: FAMOTIDINE 20 MG TABLET PO SCH ×2 (09:16→21:25)
[2017-02-23] MEDS: NYSTATIN 500,000 UNIT/5 ML UDCUP SWISH/SWAL SCH ×4 (09:16→21:26)
[2017-02-23] MEDS: ASCORBIC ACID 500 MG TABLET PO SCH (09:17)
[2017-02-23] MEDS: HYDROmorphone 2 MG/1 ML VIAL IV PRN ×2 (12:24→16:38)
[2017-02-23] MEDS: cefTRIAXone 1,000 MG in SYRINGE 1 EACH IV SCH (14:37)
[2017-02-23] MEDS: FLUCONAZOLE INJ 400 MG in PREMIX 1 EACH IV SCH (14:37)
[2017-02-23] MEDS: MONTELUKAST 10 MG TABLET PO SCH (21:25)
[2017-02-23] MEDS: ATORVASTATIN 40 MG TABLET PO SCH (21:26)
[2017-02-24] MEDS: LEVOTHYROXINE 50 MCG TABLET PO SCH (06:26)
[2017-02-24] MEDS: INSULIN LISPRO 100 UNIT/ML SUBCUT SCH ×4 (08:18→21:21)
[2017-02-24] MEDS: MULTIVITAMIN (CENTRUM) TABLET PO SCH (10:23)
[2017-02-24] MEDS: CALCIUM (CARBONATE) 600 MG TABLET PO SCH (10:23)
[2017-02-24] MEDS: FUROSEMIDE 40 MG/4 ML VIAL IV SCH ×2 (10:23→16:38)
[2017-02-24] MEDS: NYSTATIN 500,000 UNIT/5 ML UDCUP SWISH/SWAL SCH ×4 (10:24→21:21)
[2017-02-24] MEDS: FERROUS SULFATE 325 MG TABLET PO SCH (10:24)
[2017-02-24] MEDS: PANTOPRAZOLE 40 MG VIAL IV SCH ×2 (10:24→21:22)
[2017-02-24] MEDS: DESITIN 4OZ/NYSTATIN 15 GRAM MIXTURE PASTE TOP SCH ×2 (10:24→21:22)
[2017-02-24] MEDS: AMIODARONE 200 MG TABLET PO SCH ×2 (10:24→21:21)
[2017-02-24] MEDS: DULoxetine 30 MG CAPSULE PO SCH (10:24)
[2017-02-24] MEDS: predniSONE 20 MG TABLET PO SCH (10:24)
[2017-02-24] MEDS: CARVEDILOL 3.125 MG TABLET PO SCH ×2 (10:24→21:21)
[2017-02-24] MEDS: FAMOTIDINE 20 MG TABLET PO SCH ×2 (10:24→21:22)
[2017-02-24] MEDS: POLYETHYLENE GLYCOL POWDER 17 GM PACK PO SCH (10:24)
[2017-02-24] MEDS: ASCORBIC ACID 500 MG TABLET PO SCH (10:24)
[2017-02-24] MEDS: HYDROmorphone 2 MG/1 ML VIAL IV PRN (10:41)
[2017-02-24] MEDS: FLUCONAZOLE INJ 400 MG in PREMIX 1 EACH IV SCH (15:20)
[2017-02-24] MEDS: cefTRIAXone 1,000 MG in SYRINGE 1 EACH IV SCH (15:20)
[2017-02-24] MEDS: ATORVASTATIN 40 MG TABLET PO SCH (21:21)
[2017-02-24] MEDS: MONTELUKAST 10 MG TABLET PO SCH (21:22)
[2017-02-24] MEDS: DEXTROSE 5% NACL 0.45% 1,000 ML IV SCH (21:22)
[2017-02-24 22:48] VITALS: BP 111/59
== END 2017-02-25 00:19 | disposition expired | DRG 329 ==
LOC: EDUNIT# → N.ED 14:27 → N.EDINP 15:57 → SUATTDRO 15:57 → N.5E 19:07 → N.TELES 01-29 07:17 → N.3E 02-14 12:00
PROVIDERS: ADMIT Internal Medicine; ATTEND Family Medicine